=== PATIENT | female | born 1940 | race Caucasian/White ===

== ENCOUNTER 2016-10-24 13:05 | Emergency (ER) | payer MEDICARE, MEDICAID ==
[2016-10-24] MEDS ORDERED: NS 0.9% 1000 ML* 1,000 ML IV SCH (13:30)
--- NOTE | 2016-10-24 13:57 | RAD ---
HISTORY: Trauma, head trauma COMPARISONS: None TECHNIQUE: Multiple contiguous axial CT scans were obtained of the head without intravenous contrast. FINDINGS: HEMORRHAGE/INFARCT: There is no hemorrhage or acute infarct. MASSES/SHIFT: There is no mass or shift. EXTRA-AXIAL SPACES: There are no extra-axial fluid collections. SULCI AND VENTRICLES: The sulci and ventricles are normal in size and position for the patient's stated age. CEREBRUM: There are no focal parenchymal abnormalities. BRAINSTEM: There are no focal parenchymal abnormalities. CEREBELLUM: There are no focal parenchymal abnormalities. VESSELS: The vessels are grossly normal. PARANASAL SINUSES: The paranasal sinuses are clear. ORBITS: The orbits are unremarkable. BONES AND SOFT TISSUE: There is soft tissue swelling along the frontal scalp OTHER: None IMPRESSION: NO ACUTE INTRACRANIAL PATHOLOGY.
--- NOTE | 2016-10-24 14:04 | RAD ---
HISTORY: Trauma, head injury COMPARISONS: None TECHNIQUE: Multiple contiguous axial CT scans were obtained of the cervical spine without intravenous contrast, with coronal and sagittal multiplanar reformations. FINDINGS: BRAIN: The visualized brain is unremarkable CENTRAL CANAL: Evaluation of the central canal is limited on CT technique; however, there is no obvious canalicular mass or epidural hemorrhage. ALIGNMENT: There is straightening of the cervical lordosis. VERTEBRAL BODIES: There is multilevel anterolateral marginal osteophyte formation. There is no displaced fracture or dislocation. JOINTS: There is uncovertebral and facet osteoarthritis. There is osteoarthritis of the atlantoaxial articulation MUSCULATURE: Unremarkable INTERVERTEBRAL DISCS: There is diffuse loss of intervertebral disc height. AXIAL IMAGES: C2-C3: There is osteoarthritis of the facet joint. There is mild left neural foraminal narrowing. C3-C4: There is bilateral uncovertebral and facet hypertrophy. There is moderate right neural foraminal narrowing. There is no osseous stenosis. C4-C5: There is bilateral uncovertebral and facet hypertrophy. There is moderate to severe left and mild right neural foraminal narrowing. There is no osseous central canal stenosis. C5-C6: There is a broad-based discussed effect complex with bilateral uncovertebral and facet hypertrophy. There is severe left and moderate right neural foraminal narrowing. There is mild narrowing of the central canal. C6-C7: There is bilateral uncovertebral and facet hypertrophy. There is severe bilateral neural foraminal narrowing. There is no significant osseous central canal stenosis C7-T1: There is no osseous neural foraminal narrowing or central canal stenosis. SOFT TISSUES: The visualized soft tissues of the neck are unremarkable. There is calcification of the carotid bifurcations. The prevertebral fat stripe is preserved. OTHER: None. IMPRESSION: 1. DEGENERATIVE DISC DISEASE AND OSTEOARTHRITIS. 2. NO ACUTE OSSEOUS INJURY TO THE CERVICAL SPINE
[2016-10-24 14:09] LABS: Hematocrit 40 % (35-47); Mean Corpuscular HGB Conc 33 g/dl (31-36); Mean Corpuscular Hemoglobin 30 pg (27-31); Mean Corpuscular Volume 92 fL (80-97); Mean Platelet Volume 9 um3 (7.4-10.4); Red Blood Count 4.34 10^6/ul (4.0-5.4); Red Cell Distribution Width 16 % (10.5-15); White Blood Count 7.8 10^3/ul (3.5-10.8)
[2016-10-24 14:26] LABS: Albumin 3.5 g/dL (3.2-5.2); BUN/Creatinine Ratio 26.4 (8-20); C Reactive Protein 11.18 mg/L (< 5.00); Calcium 9.2 mg/dL (8.6-10.3); EGFR African American 77.3 (>60); EGFR Non-African American 60.1 (>60); Globulin 3.7 g/dL (2-4); Magnesium 1.9 mg/dL (1.9-2.7); Total Bilirubin 0.4 mg/dL (0.2-1.0); Total Protein 7.2 g/dL (6.4-8.9)
[2016-10-24 14:28] LABS: Troponin I 0.03 ng/mL (<0.04)
[2016-10-24 14:52] LABS: TSH (Thyroid Stimulating Horm) 0.15 mcIU/mL (0.34-5.60)
--- NOTE | 2016-10-24 14:54 | RAD ---
HISTORY: Syncope COMPARISONS: None VIEWS:1: Single frontal portable view of the chest at 2:17 PM FINDINGS: LINES AND TUBES: None. CARDIOMEDIASTINAL SILHOUETTE: The cardiomediastinal silhouette is normal for portable technique. PLEURA: There is elevation of the right hemidiaphragm LUNG PARENCHYMA: The lungs are clear. ABDOMEN: The upper abdomen is clear. There is no subphrenic gas. BONES AND SOFT TISSUES: No bone or soft tissue abnormalities are noted. IMPRESSION: NO ACTIVE CARDIOPULMONARY DISEASE.
--- NOTE | 2016-10-24 14:55 | RAD ---
HISTORY: Right hand and wrist trauma COMPARISONS: None VIEWS: 7, Frontal, lateral, and oblique views of the right hand and right wrist FINDINGS: BONE DENSITY: There is diffuse osteopenia. BONES: There is no displaced acute fracture. There is a well-corticated bone fragment of the styloid process of the ulna JOINTS: There is osteoarthritis of the first CMC joint. There is mild osteoarthritis of interphalangeal joints ALIGNMENT: There is no dislocation. SOFT TISSUES: Unremarkable. OTHER FINDINGS: None. IMPRESSION: 1. OSTEOPENIA. 2. OSTEOARTHRITIS. 3. NO ACUTE OSSEOUS INJURY TO THE RIGHT WRIST AND HAND. IF SYMPTOMS PERSIST, RECOMMEND REPEAT IMAGING.
[2016-10-24 15:03] LABS: Potassium 4.1 mmol/L (3.5-5.0)
[2016-10-24] MEDS ORDERED: traMADol TAB* 50 MG PO ONE (16:04)
--- NOTE | 2016-10-24 16:11 | ED ---
Head Injury - HPI Summary HPI Summary: Patient presents after a mechanical fall at her assisted at approximately 0200 this AM. She called for help since she was unable to get up on her own. She refused medical treatment at that time but as the day progressed she was willing to come if for assessment when one of her favorite aids came to work. She is not sure if she loss consciousness, but she did hit her head and has a contusion to her left forehead. She also has pain in her right wrist and hand. She denies neck pain, vomiting or headache. She does take a daily blood thinner. - History Of Current Complaint Chief Complaint: EDHeadInjury Stated Complaint: RIGHT WRIST PAIN, LEFT EYE PAIN,FALL Time Seen by Provider: 10/24/16 13:47 Hx Obtained From: Patient, Family/Caul Dresser Mechanism Of Injury: Fall From A Standing Position Onset/Duration: Started Hours Ago, Atraumatic Onset of Pain: Hours Severity Currently: Moderate Severity Initially: Mild Pain Intensity: 5 Location of Head Injury: Frontal Character: Dull, Aching Associated Signs And Symptoms: Swelling - left forehead, Bruising - Allergies/Home Medications Allergies/Adverse Reactions: Allergies Allergy/AdvReac Type Severity Reaction Status Date / Time Codeine Allergy Unknown Verified 10/24/16 13:13 Reaction Details PMH/Surg Hx/FS Hx/Imm Hx Cardiovascular History: Reports: Hx Hypertension Respiratory History: Reports: Hx Asthma Infectious Disease History: No Infectious Disease History: Denies: Traveled Outside the [place] in Last 30 Days - Social History Occupation: Unemployed Lives: [facility] Alcohol Use: None Substance Use Type: Reports: None Smoking Status (MU): Former Smoker Review of Systems Negative: Fever, Chills Negative: Blurred Vision, Diplopia Negative: Chest Pain Negative: Shortness Of Breath Negative: Abdominal Pain Positive: Myalgia - right wrist Positive: Bruising - left forehead Negative: Headache, Weakness, Paresthesia, Numbness All Other Systems Reviewed And Are Negative: Yes Physical Exam Triage Information Reviewed: Yes Vital Signs On Initial Exam: Initial Vitals Temp Pulse Resp BP Pulse Ox 99.5 F 103 20 114/67 95 10/24/16 13:07 10/24/16 13:07 10/24/16 13:07 10/24/16 13:07 10/24/16 13:07 Vital Signs Reviewed: Yes Appearance: Positive: Well-Appearing, Well-Nourished, Pain Distress Skin: Positive: Warm, Skin Color Reflects Adequate Perfusion, Dry, Soft Head/Face: Positive: Other - ecchymosis and mild edema to left forehead and left eye Eyes: Positive: EOMI, CONTRERAS, Conjunctiva Clear ENT: Positive: Hearing grossly normal Neck: Positive: Supple, Nontender, No Lymphadenopathy Respiratory/Lung Sounds: Positive: Clear to Auscultation, Breath Sounds Present Cardiovascular: Positive: IRR - A-fib with alternating rate Abdomen Description: Positive: Nontender, Soft. Negative: Distended, Guarding Bowel Sounds: Positive: Present Musculoskeletal: Positive: Limited @ - right wrist flexion and extension limited due to pain.. Negative: Edema Left, Edema Right Neurological: Positive: Sensory/Motor Intact, Alert, Oriented to Person Place, Time, CN Intact II-III, NV Bundle Intact Distally Psychiatric: Positive: Affect/Mood Appropriate AVPU Assessment: Alert - [place] Coma Scale Coma Scale Total: 15 Diagnostics - Vital Signs Vital Signs Temp Pulse Resp BP Pulse Ox 10/24/16 13:07 99.5 F 103 20 114/67 95 - Laboratory Lab Results: Lab Results 10/24/16 10/24/16 10/24/16 Range/Units 14:00 14:00 14:00 WBC 7.8 (3.5-10.8) 10^3/ul RBC 4.34 (4.0-5.4) 10^6/ul Hgb 13.0 (12.0-16.0) g/dl Hct 40 (35-47) % MCV 92 (80-97) fL MCH 30 (27-31) pg MCHC 33 (31-36) g/dl RDW 16 H (10.5-15) % Plt Count 109 L (150-450) 10^3/ul MPV 9 (7.4-10.4) um3 Neut % (Auto) 75.9 (38-83) % Lymph % (Auto) 10.6 L (25-47) % [place] % (Auto) 12.9 H (1-9) % Eos % (Auto) 0.1 (0-6) % Baso % (Auto) 0.5 (0-2) % Absolute Neuts (auto) 5.9 (1.5-7.7) 10^3/ul Absolute Lymphs (auto) 0.8 L (1.0-4.8) 10^3/ul Absolute Monos (auto) 1.0 H (0-0.8) 10^3/ul Absolute Eos (auto) 0 (0-0.6) 10^3/ul Absolute Basos (auto) 0 (0-0.2) 10^3/ul Absolute Nucleated RBC 0 10^3/ul Nucleated RBC % 0 INR (Anticoag Therapy) 0.94 (0.89-1.11) APTT 26.5 (26.0-36.3) seconds Sodium 137 (133-145) mmol/L Potassium 4.1 (3.5-5.0) mmol/L Chloride 104 (101-111) mmol/L Carbon Dioxide 26 (22-32) mmol/L Anion Gap 7 (2-11) mmol/L BUN 24 (6-24) mg/dL Creatinine 0.91 (0.51-0.95) mg/dL Est GFR ( Amer) 77.3 (>60) Est GFR (Non-Af Amer) 60.1 (>60) BUN/Creatinine Ratio 26.4 H (8-20) Glucose 133 H (70-100) mg/dL Lactic Acid (0.5-2.0) mmol/L Calcium 9.2 (8.6-10.3) mg/dL Magnesium 1.9 (1.9-2.7) mg/dL Total Bilirubin 0.40 (0.2-1.0) mg/dL AST 23 (13-39) U/L ALT 11 (7-52) U/L Alkaline Phosphatase 86 (34-104) U/L Total Creatine Kinase 36 (10-223) U/L CK-MB (CK-2) 2.0 (0.6-6.3) ng/mL Troponin I 0.03 (<0.04) ng/mL C-Reactive Protein 11.18 H (< 5.00) mg/L B-Natriuretic Peptide ( - 100) pg/mL Total Protein 7.2 (6.4-8.9) g/dL Albumin 3.5 (3.2-5.2) g/dL Globulin 3.7 (2-4) g/dL Albumin/Globulin Ratio 0.9 L (1-3) Lipase 14 (11.0-82.0) U/L TSH 0.15 L (0.34-5.60) mcIU/mL 10/24/16 10/24/16 Range/Units 14:00 14:00 WBC (3.5-10.8) 10^3/ul RBC (4.0-5.4) 10^6/ul Hgb (12.0-16.0) g/dl Hct (35-47) % MCV (80-97) fL MCH (27-31) pg MCHC (31-36) g/dl RDW (10.5-15) % Plt Count (150-450) 10^3/ul MPV (7.4-10.4) um3 Neut % (Auto) (38-83) % Lymph % (Auto) (25-47) % [place] % (Auto) (1-9) % Eos % (Auto) (0-6) % Baso % (Auto) (0-2) % Absolute Neuts (auto) (1.5-7.7) 10^3/ul Absolute Lymphs (auto) (1.0-4.8) 10^3/ul Absolute Monos (auto) (0-0.8) 10^3/ul Absolute Eos (auto) (0-0.6) 10^3/ul Absolute Basos (auto) (0-0.2) 10^3/ul Absolute Nucleated RBC 10^3/ul Nucleated RBC % INR (Anticoag Therapy) (0.89-1.11) APTT (26.0-36.3) seconds Sodium (133-145) mmol/L Potassium (3.5-5.0) mmol/L Chloride (101-111) mmol/L Carbon Dioxide (22-32) mmol/L Anion Gap (2-11) mmol/L BUN (6-24) mg/dL Creatinine (0.51-0.95) mg/dL Est GFR ( Amer) (>60) Est GFR (Non-Af Amer) (>60) BUN/Creatinine Ratio (8-20) Glucose (70-100) mg/dL Lactic Acid 2.0 (0.5-2.0) mmol/L Calcium (8.6-10.3) mg/dL Magnesium (1.9-2.7) mg/dL Total Bilirubin (0.2-1.0) mg/dL AST (13-39) U/L ALT (7-52) U/L Alkaline Phosphatase (34-104) U/L Total Creatine Kinase (10-223) U/L CK-MB (CK-2) (0.6-6.3) ng/mL Troponin I (<0.04) ng/mL C-Reactive Protein (< 5.00) mg/L B-Natriuretic Peptide 699 H ( - 100) pg/mL Total Protein (6.4-8.9) g/dL Albumin (3.2-5.2) g/dL Globulin (2-4) g/dL Albumin/Globulin Ratio (1-3) Lipase (11.0-82.0) U/L TSH (0.34-5.60) mcIU/mL Result Diagrams: 10/24/16 14:00 10/24/16 14:00 Lab Statement: Any lab studies that have been ordered have been reviewed, and results considered in the medical decision making process. - Radiology No standard instances Xray Interpretation: No Acute Changes Radiology Interpretation Completed By: Radiologist - CT No standard instances CT Interpretation: No Acute Changes CT Interpretation Completed By: Radiologist - CT brain and cervical spine negative for acute changes Head Injury Course/Dx - Diagnoses Differential Diagnosis/HQI/PQRI: Cerebral Contusion, Cervical Sprain, Contusion , Intracranial Bleed, Laceration, Nasal Fracture, Skull Fracture Provider Diagnoses: Facial contusion, Head injury, Contusion of right wrist - Physician Notifications Discussed Care Of Patient With: Dr. Durand, emergency department attending; Patient care signed out to KYLIE Kendrick at 1630. Time Discussed With Above Provider: 15:30 Discharge - Discharge Plan Condition: Stable Disposition: HOME Patient Education Materials: Head Injury (ED), Contusion in Adults (ED), Wrist Injury (ED) Referrals: Rohit Damon DO [Primary Care Provider] - Additional Instructions: Please follow-up with your primary care provider in 1-3 days for re-evaluation. Return to the emergency department if symptoms worsen.
[2016-10-24 17:37] LABS: Urine Bilirubin Negative (Negative); Urine Glucose Negative (Negative); Urine Nitrite Negative (Negative)
[2016-10-24 18:10] VITALS: BP 147/89
--- NOTE | 2016-10-28 16:17 | RAD ---
Indication: Traumatic injury. Fall. Ecchymosis at the dorsal RIGHT hand. Comparison: RIGHT hand radiographs of the same date. Technique: AP, lateral, and oblique views of the RIGHT wrist. Report: Bone density appears decreased throughout. No cortical disruption or suspicious trabecular irregularity to suggest fracture. Small chronic appearing accessory ossicle or sequela of remote injury noted distal to the ulnar styloid. Normal articular alignment. Mild nonfocal soft tissue swelling. Mild osteophytosis noted at the scaphoid trapezium articulation. IMPRESSION: Negative for fracture.
== END 2016-10-24 18:12 | disposition home or self-care (01) ==
LOC: ED 13:05
DX: S60.211A Contusion of right wrist, initial encounter (principal); S09.90XA Unspecified injury of head, initial encounter; R22.9 Localized swelling, mass and lump, unspecified; S00.83XA Contusion of other part of head, initial encounter; W19.XXXA Unspecified fall, initial encounter; Y93.9 Activity, unspecified; Y92.9 Unspecified place or not applicable
CPT/HCPCS: 36415; 70450; 71010; 72125; 80053; 81003; 82550; 82553; 83605; 83690; 83735; 83880; 84443; 84484; 85025; 85610; 85730; 86140; 99283; A9270-GY

== ENCOUNTER 2016-11-22 09:00 | Observation (INO) | payer MEDICARE, MEDICAID ==
[2016-11-22 09:35] LABS: Urine Bilirubin Negative (Negative); Urine Glucose Negative (Negative); Urine Nitrite Negative (Negative)
--- NOTE | 2016-11-22 09:52 | RAD ---
INDICATION: Chest pain. COMPARISON: Comparison is made with a prior chest x-ray study from October 24, 2016. TECHNIQUE: A portable view of the chest was obtained. FINDINGS: The heart appears mildly enlarged and unchanged from the prior exam. The lungs are underinflated. There is more focal elevation of the right hemidiaphragm. There is a linear density located above the right lung base most consistent with atelectasis. The lungs are otherwise clear. No pleural effusion is seen. IMPRESSION: EXPIRATORY EXAM, RIGHT BASILAR SUBSEGMENTAL ATELECTASIS.
[2016-11-22 10:02] LABS: Hematocrit 38 % (35-47); Hemoglobin 12.3 g/dl (12.0-16.0); Mean Corpuscular HGB Conc 33 g/dl (31-36); Mean Corpuscular Hemoglobin 30 pg (27-31); Mean Corpuscular Volume 93 fL (80-97); Mean Platelet Volume 10 um3 (7.4-10.4); Red Blood Count 4.07 10^6/ul (4.0-5.4); Red Cell Distribution Width 17 % (10.5-15); White Blood Count 7.1 10^3/ul (3.5-10.8)
[2016-11-22 10:10] LABS: Comments Flag Yes
[2016-11-22 10:11] LABS: Add Diff/Slide Review? Slide Review Added
[2016-11-22 10:21] LABS: Troponin I 0.01 ng/mL (<0.04)
[2016-11-22 10:23] LABS: Albumin 3.4 g/dL (3.2-5.2); BUN/Creatinine Ratio 30.3 (8-20); C Reactive Protein 20.45 mg/L (< 5.00); Calcium 9.1 mg/dL (8.6-10.3); EGFR African American 95.2 (>60); Globulin 3.3 g/dL (2-4); Potassium 3.9 mmol/L (3.5-5.0); Total Bilirubin 0.5 mg/dL (0.2-1.0); Total Protein 6.7 g/dL (6.4-8.9)
--- NOTE | 2016-11-22 10:31 | RAD ---
INDICATION: Episode of confusion. COMPARISON: Comparison is made to prior CT of the brain from October 24, 2016. TECHNIQUE: Contiguous axial sections of the brain were obtained from the skull base to the vertex without contrast. FINDINGS: The ventricles, cisterns and sulci are enlarged consistent with age-related atrophy. No significant focal abnormality or mass effect is seen. There is no evidence for hemorrhage. No significant focal osseous abnormality is seen. The visualized portion of the paranasal sinuses and mastoid air cells appear clear. IMPRESSION: NO EVIDENCE FOR GROSS ACUTE INFARCT, MASS EFFECT OR HEMORRHAGE.
[2016-11-22] MEDS ORDERED: Labetalol IV* 5 MG/ML 20 ML VIAL IV PUSH ONE (12:02)
--- NOTE | 2016-11-22 12:05 | ED ---
Iveth Agee Anna, scribed for Sara Goldman MD on 11/22/16 at 0932 . Altered Mental Status - HPI Summary HPI Summary: Patient is a 76 y/o female coming to [facility] following sudden onset of an episode of confusion that occurred this morning. She is a resident at [facility], where the staff reports the patient was confused and expressed some chest pressure. She was walked back to her room, and the chest pressure was resolved. The doctor has been taking her off her BP medicine. She currently takes Depacote. She ambulates via a walker. She now knows she is in the hospital. Denies Hx of dementia, though she does report that she has been confused before. - History Of Current Complaint Stated Complaint: HYPERTENSION Hx Obtained From: Patient, EMS Onset/Duration: Resolved Character: Confusion - Allergies/Home Medications Allergies/Adverse Reactions: Allergies Allergy/AdvReac Type Severity Reaction Status Date / Time Codeine Allergy Unknown Verified 10/24/16 13:13 Reaction Details Home Medications: Home Medications Acetaminophen TAB* [Tylenol TAB*] 650 mg PO .Q4-6H PRN 11/22/16 [History Confirmed 11/22/16] Al Hydrox/Mg Hydrox/Simet LIQ* [Maalox Plus*] 15 ml PO Q4H PRN 11/22/16 [ History Confirmed 11/22/16] Bismuth Subsalicylate [Kaopectate Extra Strength] 30 ml PO DAILY PRN 11/22/16 [ History Confirmed 11/22/16] Docusate CAP* [Colace Cap*] 100 mg PO BID 11/22/16 [History Confirmed 11/22/16] Dorzolamide 2% OPTH (NF) [Trusopt 2% OPTH (NF)] 1 drop BOTH EYES BID 11/22/16 [ History Confirmed 11/22/16] Latanoprost 0.005%* [Xalatan 0.005%*] 1 drop BOTH EYES BEDTIME 11/22/16 [ History Confirmed 11/22/16] Lidocaine PATCH 5%* [Lidoderm 5% Patch*] 1 patch TRANSDERM DAILY 11/22/16 [ History Confirmed 11/22/16] Magnesium Hydroxide LIQ* [Milk of Magnesia LIQ*] 60 ml PO Q4HR PRN 11/22/16 [ History Confirmed 11/22/16] Menthol (Mouth-Throat) [[place] Cough Drops Sugar F] 7.6 mg PO Q4HR PRN 11/22/16 [ History Confirmed 11/22/16] Miconazole Nitrate (Topical) [Micro Guard] 2 % TOPICAL BID 11/22/16 [History Confirmed 11/22/16] Umeclidinium [place] [Incruse Ellipta] 62.5 mcg INH DAILY 11/22/16 [History Confirmed 11/22/16] PMH/Surg Hx/FS Hx/Imm Hx Cardiovascular History: Reports: Hx Hypertension Respiratory History: Reports: Hx Asthma Neurological History: Denies: Hx Dementia - Family History Known Family History: Positive: Hypertension - Social History Occupation: Retired Lives: Assisted Living Alcohol Use: None Substance Use Type: Reports: None Smoking Status (MU): Former Smoker Review of Systems Positive: Chest Pain Neurological: Other - Confusion Psychological: Normal All Other Systems Reviewed And Are Negative: Yes Physical Exam Triage Information Reviewed: Yes Vital Signs On Initial Exam: Temp Pulse Resp BP Pulse Ox 97.0 F 79 24 172/104 99 11/22/16 09:27 11/22/16 09:27 11/22/16 09:27 11/22/16 09:27 11/22/16 09:27 Vital Signs Reviewed: Yes Appearance: Positive: Well-Appearing, No Pain Distress Skin: Positive: Warm, Skin Color Reflects Adequate Perfusion, Dry, Erythema @ - 4 cm area erythema on right leg. No fluctuance or induration to that area. Eyes: Positive: EOMI, CONTRERAS ENT: Positive: Pharynx normal, TMs normal Neck: Positive: Supple, Nontender Respiratory/Lung Sounds: Positive: Clear to Auscultation, Breath Sounds Present. Negative: Rales, Rhonchi, Wheezes Cardiovascular: Positive: RRR. Negative: Murmur, Rub, Other - gallop Abdomen Description: Positive: Nontender, Soft. Negative: Distended, Guarding, Other: - rebound Bowel Sounds: Positive: Present Musculoskeletal: Positive: Strength/ROM Intact, Edema Left - 1+ edema, Edema Right - 1+ edema Neurological: Positive: Normal, Sensory/Motor Intact, Alert, Oriented to Person Place, Time, CN Intact II-III - II-XII Psychiatric: Positive: Affect/Mood Appropriate Diagnostics - Vital Signs Vital Signs Temp Pulse Resp BP Pulse Ox 11/22/16 10:09 26 11/22/16 09:27 97.0 F 79 24 172/104 99 11/22/16 09:25 97 F 79 24 172/104 99 11/22/16 09:22 97.0 F 79 24 172/104 99 11/22/16 09:13 84 91 11/22/16 09:07 97 F 79 24 172/104 99 - Laboratory Lab Results: Lab Results 11/22/16 11/22/16 11/22/16 Range/Units 09:09 09:45 09:45 WBC 7.1 (3.5-10.8) 10^3/ul RBC 4.07 (4.0-5.4) 10^6/ul Hgb 12.3 (12.0-16.0) g/dl Hct 38 (35-47) % MCV 93 (80-97) fL MCH 30 (27-31) pg MCHC 33 (31-36) g/dl RDW 17 H (10.5-15) % Plt Count 78 L (150-450) 10^3/ul MPV 10 (7.4-10.4) um3 Neut % (Auto) 73.0 (38-83) % Lymph % (Auto) 14.7 L (25-47) % [place] % (Auto) 8.8 (1-9) % Eos % (Auto) 2.8 (0-6) % Baso % (Auto) 0.7 (0-2) % Absolute Neuts (auto) 5.2 (1.5-7.7) 10^3/ul Absolute Lymphs (auto) 1.0 (1.0-4.8) 10^3/ul Absolute Monos (auto) 0.6 (0-0.8) 10^3/ul Absolute Eos (auto) 0.2 (0-0.6) 10^3/ul Absolute Basos (auto) 0.1 (0-0.2) 10^3/ul Absolute Nucleated RBC 0 10^3/ul Nucleated RBC % 0 Hem Pathologist Commnt Pending Sodium 140 (133-145) mmol/L Potassium 3.9 (3.5-5.0) mmol/L Chloride 102 (101-111) mmol/L Carbon Dioxide 33 H (22-32) mmol/L Anion Gap 5 (2-11) mmol/L BUN 23 (6-24) mg/dL Creatinine 0.76 (0.51-0.95) mg/dL Est GFR ( Amer) 95.2 (>60) Est GFR (Non-Af Amer) 74.0 (>60) BUN/Creatinine Ratio 30.3 H (8-20) Glucose 91 (70-100) mg/dL Lactic Acid (0.5-2.0) mmol/L Calcium 9.1 (8.6-10.3) mg/dL Total Bilirubin 0.50 (0.2-1.0) mg/dL AST 19 (13-39) U/L ALT 15 (7-52) U/L Alkaline Phosphatase 92 (34-104) U/L Troponin I 0.01 (<0.04) ng/mL C-Reactive Protein 20.45 H (< 5.00) mg/L Total Protein 6.7 (6.4-8.9) g/dL Albumin 3.4 (3.2-5.2) g/dL Globulin 3.3 (2-4) g/dL Albumin/Globulin Ratio 1.0 (1-3) Urine Color Straw Urine Appearance Clear Urine pH 6.0 (5-9) Ur Specific [place] 1.006 L (1.010-1.030) Urine Protein Negative (Negative) Urine Ketones Negative (Negative) Urine Blood Negative (Negative) Urine Nitrate Negative (Negative) Urine Bilirubin Negative (Negative) Urine Urobilinogen Negative (Negative) Ur Leukocyte Esterase Negative (Negative) Urine Glucose Negative (Negative) 11/22/16 Range/Units 09:45 WBC (3.5-10.8) 10^3/ul RBC (4.0-5.4) 10^6/ul Hgb (12.0-16.0) g/dl Hct (35-47) % MCV (80-97) fL MCH (27-31) pg MCHC (31-36) g/dl RDW (10.5-15) % Plt Count (150-450) 10^3/ul MPV (7.4-10.4) um3 Neut % (Auto) (38-83) % Lymph % (Auto) (25-47) % [place] % (Auto) (1-9) % Eos % (Auto) (0-6) % Baso % (Auto) (0-2) % Absolute Neuts (auto) (1.5-7.7) 10^3/ul Absolute Lymphs (auto) (1.0-4.8) 10^3/ul Absolute Monos (auto) (0-0.8) 10^3/ul Absolute Eos (auto) (0-0.6) 10^3/ul Absolute Basos (auto) (0-0.2) 10^3/ul Absolute Nucleated RBC 10^3/ul Nucleated RBC % Hem Pathologist Commnt Sodium (133-145) mmol/L Potassium (3.5-5.0) mmol/L Chloride (101-111) mmol/L Carbon Dioxide (22-32) mmol/L Anion Gap (2-11) mmol/L BUN (6-24) mg/dL Creatinine (0.51-0.95) mg/dL Est GFR ( Amer) (>60) Est GFR (Non-Af Amer) (>60) BUN/Creatinine Ratio (8-20) Glucose (70-100) mg/dL Lactic Acid 1.4 (0.5-2.0) mmol/L Calcium (8.6-10.3) mg/dL Total Bilirubin (0.2-1.0) mg/dL AST (13-39) U/L ALT (7-52) U/L Alkaline Phosphatase (34-104) U/L Troponin I (<0.04) ng/mL C-Reactive Protein (< 5.00) mg/L Total Protein (6.4-8.9) g/dL Albumin (3.2-5.2) g/dL Globulin (2-4) g/dL Albumin/Globulin Ratio (1-3) Urine Color Urine Appearance Urine pH (5-9) Ur Specific [place] (1.010-1.030) Urine Protein (Negative) Urine Ketones (Negative) Urine Blood (Negative) Urine Nitrate (Negative) Urine Bilirubin (Negative) Urine Urobilinogen (Negative) Ur Leukocyte Esterase (Negative) Urine Glucose (Negative) Result Diagrams: 11/22/16 09:45 11/22/16 09:45 Lab Statement: Any lab studies that have been ordered have been reviewed, and results considered in the medical decision making process. - Radiology CXR Xray Interpretation: Positive (See Comments) Radiology Interpretation Completed By: Radiologist - IMPRESSION: EXPIRATORY EXAM, RIGHT BASILAR SUBSEGMENTAL ATELECTASIS. - CT Brain CT CT Interpretation: No Acute Changes CT Interpretation Completed By: Radiologist - IMPRESSION: NO EVIDENCE FOR GROSS ACUTE INFARCT, MASS EFFECT OR HEMORRHAGE. - EKG 0914 Cardiac Rate: NL - 80 bpm EKG Rhythm: Atrial Fibrillation - Slow EKG Interpretation: No Qs No ST elevation Altered Mental Statu Course/Dx - Course Course Of Treatment: 76 yo female with multiple elevated bp readings at [facility] over the last few days today with an episode of ams this am. Talked with Dr. France about admission - Diagnoses Discharge Diagnoses: Hypertension, Altered mental status - Provider Notifications Discussed Care Of Patient With: Dr. France (hospitalist) at 1200. Accepts her for admission. Discharge - Discharge Plan Condition: Stable Disposition: ADMITTED TO [facility] Referrals: Non Staff,Doctor [Primary Care Provider] - The documentation as recorded by the Iveth english Anna accurately reflects the service I personally performed and the decisions made by me, Sara Goldman MD.
[2016-11-22] MEDS ORDERED: Acetaminophen TAB* 325 MG PO PRN (14:30)
[2016-11-22] MEDS ORDERED: Ondansetron INJ* 2 MG/ML VIAL IV PRN (14:30)
[2016-11-22] MEDS ORDERED: Albuterol 2.5 MG/3 ML NEB.SOL* (0.083%) INH PRN (14:53)
[2016-11-22] MEDS: Metoprolol Tartrate TAB* 25 MG PO SCH ×2 (17:04→17:45)
[2016-11-22] MEDS ORDERED: Atorvastatin* 10 MG TAB PO SCH (21:00)
[2016-11-22] MEDS ORDERED: Montelukast Sodium TAB* 10 MG PO SCH (21:00)
[2016-11-22] MEDS ORDERED: FLUTICASONE PROPIONATE 50 MCG INH SCH (21:00)
[2016-11-22] MEDS ORDERED: Latanoprost 0.005%* 2.5 ml BTL BOTH EYES SCH (21:00)
[2016-11-22] MEDS ORDERED: Primidone TAB(*) 50 MG PO SCH (21:00)
[2016-11-22] MEDS ORDERED: Divalproex DR TAB(*) 250 MG PO SCH (21:00)
[2016-11-22] MEDS ORDERED: Lidocaine Patch REMOVE* 1 NOTE MISC PATCH OFF SCH (21:00)
[2016-11-22] MEDS ORDERED: CMCS: Escitalopram (NF) 10 MG TAB PO SCH (21:00)
--- NOTE | 2016-11-22 21:07 | HP ---
HISTORY AND PHYSICAL: DATE OF ADMISSION: 11/22/16 PRIMARY CARE PROVIDER: Dr. Damon. ATTENDING PHYSICIAN WHILE IN THE HOSPITAL: Dr. Kristin Luis *(report dictated by Sami Gold NP). CHIEF COMPLAINT: 1. Elevated blood pressure. 2. Altered mental status. HISTORY OF PRESENT ILLNESS: Ms. Mayers is a 76-year-old female patient that presented to the emergency department today because [facility] was concerned that she was confused and they noticed that her blood pressure was significantly elevated; it was 180/120. In addition to this, there was also concern because she was complaining of chest discomfort. The patient was brought in to the ER. She was evaluated, and because of the chest discomfort and the blood pressure, we were asked to evaluate. In evaluating the patient, she says that she does remember coming in for the elevated blood pressure. She states that she was having some chest discomfort. She says that she has been having chest discomfort off and on for as long as that she can remember, sometimes with exertion. She says today what happened was she was sitting and she had chest discomfort, described as a pressure with no associated shortness of breath or nausea. She states that she did not have a headache. There was no blurry vision. She denies any recent fevers or chills. She does state that recently her Xarelto was stopped. In addition to this, she is no longer on blood pressure medications and she thinks that that is why her blood pressure is high. She also did tell me that she fell a few weeks ago and shortly after that, her blood pressure medications were stopped because her blood pressure was low. She denies having any chest pain currently. States she is feeling better. She denies any abdominal pain. She denies having any shortness of breath currently as well. Because of the chest pressure and the elevated blood pressure, the hospitalist service was asked to evaluate for admission. PAST MEDICAL HISTORY: Significant for: 1. Hypertension. 2. Asthma. 3. Hyperlipidemia. 4. Atrial fibrillation. 5. History of pulmonary embolism. PAST SURGICAL HISTORY: She has had: 1. Right total knee replacement. 2. Appendectomy. MEDICATIONS: [facility]: 1. Incruse 62.5 mcg inhaled daily. 2. Miconazole cream 2% topically b.i.d. 3. [place] 1 lozenge p.o. every 4 hours as needed. 4. Milk of mag 60 cc every 4 hours as needed. 5. Lidoderm 1 patch topically transdermally daily. 6. Latanoprost 1 drop both eyes bedtime. 7. Trusopt 1 drop both eyes b.i.d. 8. Colace 100 mg p.o. b.i.d. 9. Kaopectate 30 cc daily as needed. 10. Maalox 15 cc every 4 hours as needed. 11. Tylenol 650 mg p.o. every 4 to 6 hours as needed. ALLERGIES TO MEDICATIONS: Include CODEINE. FAMILY HISTORY: Her father had a history of ALS. The mother's history was reviewed and noncontributory. SOCIAL HISTORY: She is a former smoker. She says she quit about 4 months ago. She used to be an alcoholic. She says she has had a drink in 30 years. She has 4 children. Surrogate decision maker is her sister. REVIEW OF SYSTEMS: There is no documented fever. She denied having any significant weight change. There was no double vision. There is no ear discharge. She denies having any rhinorrhea or sore throat. There is no thyroid enlargement. She denied chest pressure currently. She denies having any abdominal pain or any nausea or vomiting. Denies any loss of consciousness. No pruritus. Review of 14 systems completed, all others negative. PHYSICAL EXAMINATION GENERAL: At this time, Ms. Mayers is a 76-year-old female patient. She is sitting in the hospital bed. She does not appear to be in any acute distress. VITAL SIGNS: Blood pressure 151/86 with a pulse of 79, respirations 18, O2 sat 98, and temperature 96.7. HEENT: Head is atraumatic and normocephalic. Eyes: EOMs intact. Sclerae anicteric and not pale. Throat: Oral mucosa appears to be moist. No oropharyngeal erythema. NECK: Supple. LUNGS: Clear to auscultation bilaterally. No wheezes, rales, or rhonchi noted. HEART: Sounds S1, S2. Irregularly irregular rate. No murmurs, rubs, or gallops. ABDOMEN: Soft, it was flat, and nontender. Bowel sounds present. EXTREMITIES: Pulses 2+ throughout. She did have +2 pitting edema bilaterally. She is able to move all 4 extremities with 5/5 strength. NEUROLOGIC: Again, she is awake, alert, and oriented x3. No gross focal deficits. SKIN: Intact. She does have multiple areas of ecchymosis noted to the face and to her arms. DIAGNOSTIC STUDIES/LAB DATA: Today revealed a WBC of 7.1, RBC of 4.07, hemoglobin 12.3, hematocrit of 38, platelet count of 78. Sodium was 140, potassium 3.9, chloride of 102, bicarb of 33, BUN 23, creatinine of 0.76, glucose of 91, lactate 1.4, calcium 9.1. Total bili 0.5, AST 19, ALT 15, alk phos 92. Troponin was 0.01. Albumin 3.4. Urine was obtained, it was negative. She had an EKG obtained in the ED which showed atrial fibrillation with a rate of 80. No ST elevations or T-wave inversions noted. She had a chest x-ray obtained today, which showed expiratory exam, right basilar subsegmental atelectasis. She had a brain CT, which showed no evidence for gross acute infarct, mass effect, or hemorrhage. Old medical records were reviewed. ASSESSMENT AND PLAN: Ms. Mayers is a 76-year-old female patient coming into the ER today with complaints of chest discomfort and elevated blood pressure. Hospitalist service was asked to evaluate for admission. She will be admitted under observation status for: 1. Hypertensive urgency: The blood pressure now is 140/70. She got 1 dose of labetalol in the ED. I will go ahead and continue b.i.d. Lopressor. 2. Asthma: I have ordered p.r.n. albuterol for the patient. 3. Hyperlipidemia: She is not on statin therapy at this point. I did touch base again with [facility] and they did not list a statin for her. I am going to clarify this. 4. Atrial fibrillation: Again, she was at one point on Xarelto according to this patient, but it appears that may have been stopped. We will need to again clarify this. I did touch base with Dr. Damon' office and the notes read at that point that they were supposed to stop the medications only if she was falling. She does have significant amount of ecchymosis to her forehead and to her face, so I question if she has been falling, so at this point, I will hold. I will continue the Lopressor for rate control; her heart rate is in the 80s. 5. History of pulmonary embolism: Again, she was on Xarelto, but for the time being, I will just place her on heparin subcu, the subtherapeutic dose for preventative doses and we will continue to monitor. Again, we will need to clarify. If she chooses to be on the Xarelto, I do leave . 6. Code status: She wished to be a DNR. 7. Fluids, electrolytes, and nutrition: She can have a heart-healthy diet. TIME SPENT: On the admission was 60 minutes; greater than half the time was spent [id number] with the patient obtaining my history and physical, other half the time spent going over the plan of care with the patient and implementing the plan of care. I did discuss the plan of care with my attending, Dr. Luis; she is in agreement. SAMI GOLD NP CC: Dr. Damon* [id number]/CPS #: [id number]
[2016-11-22] MEDS ORDERED: Heparin VIAL(*) 5000 UNITS/ML VIAL (FIVE THOUSAND) SUBCUT SCH (22:00)
[2016-11-22] MEDS: Docusate CAP* 100 MG PO SCH (22:44)
[2016-11-22] MEDS: Carvedilol TAB* 25 MG PO SCH (22:46)
[2016-11-22] MEDS: Gabapentin CAP(*) 100 MG PO SCH (22:47)
[2016-11-23] MEDS: Dorzolamide 2% OPTH (NF) 10 ML BTL BOTH EYES SCH ×2 (00:35→10:10)
[2016-11-23] MEDS ORDERED: Levothyroxine TAB* 150 MCG TAB PO SCH (06:00)
[2016-11-23 06:48] LABS: Hematocrit 36 % (35-47); Hemoglobin 11.8 g/dl (12.0-16.0); Mean Corpuscular HGB Conc 33 g/dl (31-36); Mean Corpuscular Hemoglobin 30 pg (27-31); Mean Corpuscular Volume 93 fL (80-97); Mean Platelet Volume 9 um3 (7.4-10.4); Red Blood Count 3.93 10^6/ul (4.0-5.4); Red Cell Distribution Width 17 % (10.5-15); White Blood Count 5.6 10^3/ul (3.5-10.8)
[2016-11-23 07:02] LABS: BUN/Creatinine Ratio 28.6 (8-20); Calcium 8.8 mg/dL (8.6-10.3); Comments Flag Yes; EGFR African American 93.7 (>60); EGFR Non-African American 72.9 (>60); Potassium 3.9 mmol/L (3.5-5.0)
[2016-11-23] MEDS ORDERED: Omeprazole CAP* 20 MG PO SCH (07:30)
[2016-11-23] MEDS: Carvedilol TAB* 25 MG PO SCH (08:38)
[2016-11-23] MEDS: Docusate CAP* 100 MG PO SCH (08:40)
[2016-11-23] MEDS: Gabapentin CAP(*) 100 MG PO SCH ×2 (08:40→15:15)
[2016-11-23] MEDS ORDERED: Bumetanide TAB* 1 MG PO SCH (09:00)
[2016-11-23] MEDS ORDERED: Lidocaine PATCH 5%* 1 PATCH TRANSDERM SCH (09:00)
[2016-11-23] MEDS ORDERED: Aspirin EC Low Dose* 81 MG TAB.EC PO SCH (09:00)
[2016-11-23] MEDS ORDERED: Divalproex DR TAB(*) 250 MG PO SCH (09:00)
[2016-11-23] MEDS ORDERED: Umeclidin 62.5 MDI(NF) 1 INH MDI INH SCH (09:00)
--- NOTE | 2016-11-23 13:03 | DCNOTE ---
Patient seen this afternoon. Eating lunch. Says she feels well. No chest pain, SOB. On exam, RRR, s1 and s2 present, no m/g/r, lungs CTA B/L, no w/r/r, abd soft, NTND, BS+, trace LE edema BPs better controlled with metoprolol. Will continue this. After clarifying patient IS still on Xarelto, we will continue this
[2016-11-23] MEDS ORDERED: amLODIPine TAB* 5 MG PO SCH (14:00)
[2016-11-23 15:53] VITALS: BP 160/79
[2016-11-23] MEDS ORDERED: Rivaroxaban TAB(*) 20 MG TAB PO SCH (17:00)
--- NOTE | 2016-11-25 01:59 | DS ---
DISCHARGE SUMMARY: DATE OF ADMISSION: 11/22/16 DATE OF DISCHARGE: 11/23/16 PRIMARY CARE PHYSICIAN: Dr. Damon. PRINCIPAL DISCHARGE DIAGNOSIS: hypertension. SECONDARY DIAGNOSES: 1. Asthma. 2. Hyperlipidemia. 3. Atrial fibrillation. 4. History of pulmonary embolism. DISCHARGE MEDICATION REGIMEN: 1. Fluticasone 50 mcg inhaled 2 times daily. 2. Synthroid 150 mcg by mouth daily. 3. Brimonidine tartrate 1 drop to the affected area 2 times daily. 4. Ammonium lactate 1 application transdermal 2 times daily. 5. Atorvastatin 10 mg by mouth at bedtime. 6. Bumex 1 mg by mouth daily. 7. Coreg 50 mg by mouth 2 times daily. 8. Primidone 200 mg by mouth at bedtime. 9. Omeprazole 20 mg by mouth daily. 10. Xarelto 20 mg by mouth daily. 11. Potassium chloride 10 mEq by mouth daily. 12. Aspirin 81 mg by mouth daily. 13. Lexapro 20 mg by mouth at bedtime. 14. Depakote 500 mg by mouth daily and 750 mg by mouth at bedtime. 15. Singulair 10 mg by mouth at bedtime. 16. Gabapentin 200 mg by mouth 3 times daily. 17. Menthol 7.6 mg by mouth every 4 hours as needed for cough. 18. Milk of magnesia 60 mL by mouth every 4 hours as needed for constipation. 19. Maalox 15 mL by mouth every 4 hours as needed for indigestion. 20. Bismuth salicylate 30 mL by mouth daily as needed for indigestion. 21. Colace 100 mg by mouth 2 times daily. 22. Tylenol 650 mg by mouth every 4 to 6 hours as needed for pain. 23. Latanoprost 1 drop both eyes at bedtime. 24. Miconazole 2% topical b.i.d. 25. Dorzolamide 2% one drop in both eyes 2 times daily. 26. Lidocaine 1 patch transdermal daily. 27. Umeclidinium bromide 62.5 mcg inhaled daily. 28. Amlodipine 5 mg by mouth daily. STUDIES DONE DURING HOSPITALIZATION: 1. CT of the brain without contrast, impression: No evidence for gross acute infarct, mass effect, or hemorrhage. 2. Chest x-ray, impression: Expiratory exam, right basilar subsegmental atelectasis. HISTORY OF PRESENT ILLNESS AND HOSPITAL SUMMARY: Please see the full history and physical by Sami Gold NP, for full details. Briefly, Ms. Mayers is a 76 -year- old female who presented to the hospital from [facility] after it was noted that her blood pressure was significantly elevated. She thought that systolics may have been in the 200s. Here in the hospital, her max systolic pressure was 172, diastolic of 104. There was question whether the patient may have had some chest pain associated with this. In the hospital, her blood pressures improved. On further history, it was noted that she was taken off of lisinopril 40 mg by mouth daily recently due to hypotension and a fall that she had. There was a question whether the patient was continued on Xarelto after this as she had a pulmonary embolism fairly recently. The Xarelto was continued through this and will be continued on discharge as well. The patient was taken off of lisinopril recently, it was felt that she would likely need some additional blood pressure control. She is on very high doses of carvedilol at home already at 15 mg by mouth 3 times daily. I have added on amlodipine 5 mg by mouth daily to her home regimen. She will need to follow up with her PCP for further titration if needed. TIME SPENT: Total time spent on this discharge, 40 minutes. This is a summary of the hospitalization. Please see the full medical record for further details. CC: Dr. Damon* [id number]/CPS #: [id number] [id number]
== END 2016-11-23 17:34 ==
LOC: ED 09:00 → MEDTELE 12:06
PROVIDERS: ADMIT Internal Medicine; ATTEND Hospitalist
DX: I16.0 Hypertensive urgency (principal); R41.82 Altered mental status, unspecified; J45.909 Unspecified asthma, uncomplicated; E78.5 Hyperlipidemia, unspecified; I48.91 Unspecified atrial fibrillation; Z79.01 Long term (current) use of anticoagulants; Z86.711 Personal history of pulmonary embolism; Z79.899 Other long term (current) drug therapy; Z87.891 Personal history of nicotine dependence
CPT/HCPCS: 36415; 70450; 71010; 80048; 80053; 81003; 83605; 84484; 85025; 85060; 86140; 87641; 93005; 94760; 99284; A9270-GY; G0378

== ENCOUNTER 2017-04-03 11:49 | Observation (INO) | payer MEDICARE, MEDICAID ==
[2017-04-03] MEDS ORDERED: NS 0.9% 1000 ML* 1,000 ML IV ONE ×3 (12:26→16:25)
--- NOTE | 2017-04-03 13:18 | RAD ---
Indication: Confusion. Single frontal view of the chest performed at 1300 hours was reviewed. Comparison is made with previous exam dated November 22, 2016. No mediastinal shift is noted. There is cardiomegaly noted. Elevated right hemidiaphragm is noted. Lung castro appear clear. IMPRESSION: NO ACTIVE CARDIOPULMONARY DISEASE IS NOTED. CHRONIC ELEVATED RIGHT HEMIDIAPHRAGM.
[2017-04-03 13:36] LABS: Hematocrit 39 % (35-47); Hemoglobin 12.8 g/dl (12.0-16.0); Mean Corpuscular HGB Conc 33 g/dl (31-36); Mean Corpuscular Hemoglobin 32 pg (27-31); Mean Corpuscular Volume 97 fL (80-97); Mean Platelet Volume 10 um3 (7.4-10.4); Red Blood Count 4.07 10^6/ul (4.0-5.4); Red Cell Distribution Width 16 % (10.5-15); White Blood Count 8.6 10^3/ul (3.5-10.8)
[2017-04-03 13:57] LABS: Albumin 3.1 g/dL (3.2-5.2); BUN/Creatinine Ratio 32.4 (8-20); C Reactive Protein 3.35 mg/L (< 5.00); Calcium 8.7 mg/dL (8.6-10.3); EGFR African American 48.6 (>60); EGFR Non-African American 37.8 (>60); Magnesium 2.2 mg/dL (1.9-2.7); Potassium 3.4 mmol/L (3.5-5.0); Total Bilirubin 0.4 mg/dL (0.2-1.0); Total Protein 6.1 g/dL (6.4-8.9)
[2017-04-03 13:58] LABS: Troponin I 0.03 ng/mL (<0.04)
[2017-04-03 14:04] LABS: TSH (Thyroid Stimulating Horm) 2.07 mcIU/mL (0.34-5.60)
[2017-04-03 16:41] LABS: Urine Bilirubin Negative (Negative); Urine Glucose Negative (Negative); Urine Nitrite Negative (Negative)
[2017-04-03 16:51] LABS: Benzodiazepine Urine Screen None Detected (None Detect)
--- NOTE | 2017-04-03 19:35 | RAD ---
INDICATION: Change in mental status COMPARISON: CT brain October 24, 2016 TECHNIQUE: Noncontrast axial source images were acquired from the skull base to the vertex. FINDINGS: Ventricles/sulci: There is age-related cortical atrophy with compensatory dilatation of the CSF spaces. Brain parenchyma: There is no focal parenchymal finding, evidence of intracranial mass, or intracranial mass effect. Intracranial hemorrhage:None. Extra-axial spaces: There are no abnormal extra axial fluid collections or evidence of extra-axial mass. Calvarium: There is no calvarial fracture or other calvarial abnormality. Scalp: There is no evidence of scalp or extracalvarial soft tissue abnormality. Paranasal sinuses/mastoid: The paranasal sinuses and mastoid air cells are clear. Other: None. IMPRESSION: Cortical involutional changes. No acute findings
[2017-04-03] MEDS ORDERED: Acetaminophen TAB* 325 MG PO PRN (19:58)
[2017-04-03] MEDS ORDERED: Ondansetron INJ* 2 MG/ML VIAL IV PRN (19:58)
[2017-04-03] MEDS ORDERED: Potassium Chlor TAB* 20 MEQ TAB.ER PO ONE (20:04)
--- NOTE | 2017-04-03 20:54 | ED ---
Beto Agee Benjamin, scribed for Vj Young MD on 04/03/17 at 1248 . Complex/Multi-Sys Presentation - HPI Summary HPI Summary: 76yo female From [facility]. Per [facility] caretakers, pt has been having increased weakness over the past few days. Pt had fallen twice in the past 24 hours. Pt is normally independent, able to ambulate on her own. Pt is sleeping at the time seen. - History Of Current Complaint Chief Complaint: EDGeneral Time Seen by Provider: 04/03/17 11:59 Hx Obtained From: Family/Graphic User Interface Designer - [facility] report Hx From Patient Unobtainable Due To: Other - in sleep Onset/Duration: Gradual Onset, Lasting Days, Still Present Timing: Constant Severity Currently: Mild Severity Initially: Mild Location: Negative Associated Signs And Symptoms: Positive: Weakness - Allergies/Home Medications Allergies/Adverse Reactions: Allergies Allergy/AdvReac Type Severity Reaction Status Date / Time Codeine Allergy Unknown Verified 10/24/16 13:13 Reaction Details Home Medications: Home Medications Aspirin EC Low Dose* [Ecotrin EC Low Dose 81 MG*] 81 mg PO DAILY 04/03/17 [ History Confirmed 04/03/17] Brimonidine 0.2 % * [Alphagan P 0.2% *] 1 drop OPHTHALMIC BID 04/03/17 [History Confirmed 04/03/17] Budesonide/Formote 160/4.5(NF) [Symbicort 160/4.5 (NF)] 2 puff INH BID 04/03/17 [History Confirmed 04/03/17] Bumetanide TAB* [Bumex 1 MG TAB*] 1 mg PO DAILY 04/03/17 [History Confirmed 11/15] Carvedilol TAB* [Coreg TAB*] 50 mg PO BID 04/03/17 [History Confirmed 04/03/17] Dorzolamide 2% OPTH (NF) [Trusopt 2% OPTH (NF)] 1 drop BOTH EYES BID 04/03/17 [ History Confirmed 04/03/17] Lactic Acid (Ammonium Lactate) [Ammonium Lactate] 12 % TOPICAL BID 04/03/17 [ History Confirmed 04/03/17] Latanoprost [Latanoprost] 1 drop BOTH EYES BEDTIME 04/03/17 [History Confirmed 04/03/17] Levothyroxine TAB* [Synthroid TAB*] 150 mcg PO QAM 04/03/17 [History Confirmed 04/03/17] Lurasidone HCl [Latuda] 90 mg PO BEDTIME 04/03/17 [History Confirmed 04/03/17] Multiple Vitamins W/ Minerals [Preservision Areds 2 + Mu] 1 cap PO DAILY [History Confirmed 04/03/17] Omeprazole CAP* [Prilosec CAP* 20 MG] 20 mg PO DAILY 04/03/17 [History Confirmed 04/03/17] Potassium Chlor TAB* [Klor Con ER TAB*] 10 meq PO DAILY 04/03/17 [History Confirmed 04/03/17] Primidone TAB(*) [Mysoline TAB(*)] 200 mg PO BEDTIME 04/03/17 [History Confirmed 04/03/17] Umeclidinium [place] [Incruse Ellipta] 62.5 mcg INH DAILY 04/03/17 [History Confirmed 04/03/17] traMADol TAB* [Ultram*] 50 mg PO BID PRN 04/03/17 [History Confirmed 04/03/17] PMH/Surg Hx/FS Hx/Imm Hx Cardiovascular History: Reports: Hx Hypertension Respiratory History: Reports: Hx Asthma Sensory History: Reports: Hx Cataracts, Hx Contacts or Glasses, Hx Glaucoma, Hx Macular Degeneration, Hx Vision Problem Denies: Hx Eye Injury, Hx Eye Prosthesis, Hx Legally Blind, Hx Deafness, Hx Hearing Aid, Hx Hearing Problem Opthamlomology History: Reports: Hx Cataracts, Hx Contacts or Glasses, Hx Glaucoma, Hx Macular Degeneration, Hx Vision Problem Denies: Hx Eye Injury, Hx Eye Prosthesis, Hx Legally Blind Neurological History: Denies: Hx Dementia Infectious Disease History: No Infectious Disease History: Denies: Traveled Outside the [place] in Last 30 Days - Family History Known Family History: Positive: Hypertension - Social History Occupation: Retired Lives: [facility] Alcohol Use: None Substance Use Type: Reports: None Smoking Status (MU): Former Smoker Type: Cigarettes Review of Systems Constitutional: Negative Eyes: Negative ENT: Negative Cardiovascular: Negative Respiratory: Negative Gastrointestinal: Negative Genitourinary: Negative Musculoskeletal: Negative Skin: Negative Positive: Weakness Psychological: Normal All Other Systems Reviewed And Are Negative: Yes Physical Exam Triage Information Reviewed: Yes Vital Signs On Initial Exam: Initial Vitals Temp Pulse Resp BP Pulse Ox 97.5 F 89 16 98/49 87 04/03/17 12:02 04/03/17 12:02 04/03/17 12:02 04/03/17 12:02 04/03/17 12:02 Vital Signs Reviewed: Yes Completion Of Physical Exam Limited Due To: Other - stuporous, only arousal to noxious stimuli Appearance: Positive: Well-Appearing, No Pain Distress, Obese Skin: Positive: Warm, Skin Color Reflects Adequate Perfusion, Dry Head/Face: Positive: Normal Head/Face Inspection, Temporal Artery Tenderness Eyes: Positive: Normal ENT: Positive: Normal ENT inspection, Hearing grossly normal Neck: Positive: Supple, Nontender Respiratory/Lung Sounds: Positive: Clear to Auscultation, Breath Sounds Present Cardiovascular: Positive: RRR Abdomen Description: Positive: Nontender, Soft Bowel Sounds: Positive: Present Neurological: Positive: Sensory/Motor Intact, CN Intact II-III, Reflexes Intact , Other - only arousal to noxious stimuli Psychiatric: Positive: Affect/Mood Appropriate - Jerome Coma Scale Coma Scale Total: 14 Diagnostics - Vital Signs Vital Signs Temp Pulse Resp BP Pulse Ox 04/03/17 12:04 97.5 F 87 16 98/49 95 04/03/17 12:02 97.5 F 89 16 98/49 87 - Laboratory Lab Results: Lab Results 04/03/17 04/03/17 04/03/17 Range/Units 12:45 12:45 12:45 WBC 8.6 (3.5-10.8) 10^3/ul RBC 4.07 (4.0-5.4) 10^6/ul Hgb 12.8 (12.0-16.0) g/dl Hct 39 (35-47) % MCV 97 (80-97) fL MCH 32 H (27-31) pg MCHC 33 (31-36) g/dl RDW 16 H (10.5-15) % Plt Count 103 L (150-450) 10^3/ul MPV 10 (7.4-10.4) um3 Neut % (Auto) 67.2 (38-83) % Lymph % (Auto) 20.4 L (25-47) % [place] % (Auto) 10.6 H (1-9) % Eos % (Auto) 1.4 (0-6) % Baso % (Auto) 0.4 (0-2) % Absolute Neuts (auto) 5.8 (1.5-7.7) 10^3/ul Absolute Lymphs (auto) 1.8 (1.0-4.8) 10^3/ul Absolute Monos (auto) 0.9 H (0-0.8) 10^3/ul Absolute Eos (auto) 0.1 (0-0.6) 10^3/ul Absolute Basos (auto) 0 (0-0.2) 10^3/ul Absolute Nucleated RBC 0 10^3/ul Nucleated RBC % 0 Sodium 144 (133-145) mmol/L Potassium 3.4 L (3.5-5.0) mmol/L Chloride 104 (101-111) mmol/L Carbon Dioxide 33 H (22-32) mmol/L Anion Gap 7 (2-11) mmol/L BUN 44 H (6-24) mg/dL Creatinine 1.36 H (0.51-0.95) mg/dL Est GFR ( Amer) 48.6 (>60) Est GFR (Non-Af Amer) 37.8 (>60) BUN/Creatinine Ratio 32.4 H (8-20) Glucose 90 (70-100) mg/dL Lactic Acid 1.4 (0.5-2.0) mmol/L Calcium 8.7 (8.6-10.3) mg/dL Magnesium 2.2 (1.9-2.7) mg/dL Total Bilirubin 0.40 (0.2-1.0) mg/dL AST 16 (13-39) U/L ALT 11 (7-52) U/L Alkaline Phosphatase 66 (34-104) U/L Troponin I 0.03 (<0.04) ng/mL C-Reactive Protein 3.35 (< 5.00) mg/L Total Protein 6.1 L (6.4-8.9) g/dL Albumin 3.1 L (3.2-5.2) g/dL Globulin 3.0 (2-4) g/dL Albumin/Globulin Ratio 1.0 (1-3) TSH 2.07 (0.34-5.60) mcIU/mL Urine Color Urine Appearance Urine pH (5-9) Ur Specific [place] (1.010-1.030) Urine Protein (Negative) Urine Ketones (Negative) Urine Blood (Negative) Urine Nitrate (Negative) Urine Bilirubin (Negative) Urine Urobilinogen (Negative) Ur Leukocyte Esterase (Negative) Urine Glucose (Negative) Urine Ascorbic Acid (Negative) Urine Opiates Screen (None Detect) Ur Barbiturates Screen (None Detect) Valproic Acid Pending Ur Phencyclidine Scrn (None Detect) Ur Amphetamines Screen (None Detect) U Benzodiazepines Scrn (None Detect) Urine Cocaine Screen (None Detect) U Cannabinoids Screen (None Detect) 04/03/17 04/03/17 Range/Units 16:25 16:25 WBC (3.5-10.8) 10^3/ul RBC (4.0-5.4) 10^6/ul Hgb (12.0-16.0) g/dl Hct (35-47) % MCV (80-97) fL MCH (27-31) pg MCHC (31-36) g/dl RDW (10.5-15) % Plt Count (150-450) 10^3/ul MPV (7.4-10.4) um3 Neut % (Auto) (38-83) % Lymph % (Auto) (25-47) % [place] % (Auto) (1-9) % Eos % (Auto) (0-6) % Baso % (Auto) (0-2) % Absolute Neuts (auto) (1.5-7.7) 10^3/ul Absolute Lymphs (auto) (1.0-4.8) 10^3/ul Absolute Monos (auto) (0-0.8) 10^3/ul Absolute Eos (auto) (0-0.6) 10^3/ul Absolute Basos (auto) (0-0.2) 10^3/ul Absolute Nucleated RBC 10^3/ul Nucleated RBC % Sodium (133-145) mmol/L Potassium (3.5-5.0) mmol/L Chloride (101-111) mmol/L Carbon Dioxide (22-32) mmol/L Anion Gap (2-11) mmol/L BUN (6-24) mg/dL Creatinine (0.51-0.95) mg/dL Est GFR ( Amer) (>60) Est GFR (Non-Af Amer) (>60) BUN/Creatinine Ratio (8-20) Glucose (70-100) mg/dL Lactic Acid (0.5-2.0) mmol/L Calcium (8.6-10.3) mg/dL Magnesium (1.9-2.7) mg/dL Total Bilirubin (0.2-1.0) mg/dL AST (13-39) U/L ALT (7-52) U/L Alkaline Phosphatase (34-104) U/L Troponin I (<0.04) ng/mL C-Reactive Protein (< 5.00) mg/L Total Protein (6.4-8.9) g/dL Albumin (3.2-5.2) g/dL Globulin (2-4) g/dL Albumin/Globulin Ratio (1-3) TSH (0.34-5.60) mcIU/mL Urine Color Yellow Urine Appearance Clear Urine pH 5.0 (5-9) Ur Specific [place] 1.016 (1.010-1.030) Urine Protein Negative (Negative) Urine Ketones Negative (Negative) Urine Blood Negative (Negative) Urine Nitrate Negative (Negative) Urine Bilirubin Negative (Negative) Urine Urobilinogen Negative (Negative) Ur Leukocyte Esterase Negative (Negative) Urine Glucose Negative (Negative) Urine Ascorbic Acid * H (Negative) Urine Opiates Screen None detected (None Detect) Ur Barbiturates Screen Presumptive positive H (None Detect) Valproic Acid Ur Phencyclidine Scrn None detected (None Detect) Ur Amphetamines Screen None detected (None Detect) U Benzodiazepines Scrn None detected (None Detect) Urine Cocaine Screen None detected (None Detect) U Cannabinoids Screen None detected (None Detect) Result Diagrams: 04/03/17 12:45 04/03/17 12:45 Lab Statement: Any lab studies that have been ordered have been reviewed, and results considered in the medical decision making process. - Radiology CXR Xray Interpretation: No Acute Changes - IMPRESSION: NO ACTIVE CARDIOPULMONARY DISEASE IS NOTED. CHRONIC ELEVATED RIGHT HEMIDIAPHRAGM. Radiology Interpretation Completed By: Radiologist - EKG 1257. Cardiac Rate: NL - 98bpm EKG Rhythm: Atrial Fibrillation ST Segment: Normal Ectopy: None Complex Multi-Symp Course/Dx Course Of Treatment: Reviewed pt's medications list and allergies. Assessment/Plan: I was unable to find a reason for her lethargy. She was quite sleepy but would wake up some and answer simple questions. Interestingly, her urine tox showed barbiturates which do not appear on her med list. The hospitalists were consulted. - Diagnoses Provider Diagnoses: Stupor - Critical Care Time Critical Care Time: 30-74 min Discharge - Discharge Plan Condition: Stable Disposition: ADMITTED TO [facility] documentation as recorded by the Beto english Benjamin accurately reflects the service I personally performed and the decisions made by me, Vj Young MD.
[2017-04-03] MEDS ORDERED: Primidone TAB(*) 50 MG PO SCH (21:00)
[2017-04-03] MEDS ORDERED: CMCS: Escitalopram (NF) 10 MG TAB PO SCH (21:00)
[2017-04-03] MEDS ORDERED: Divalproex DR TAB(*) 250 MG PO SCH (21:00)
[2017-04-03] MEDS ORDERED: Latanoprost 0.005%* 2.5 ml BTL BOTH EYES SCH (21:00)
[2017-04-03] MEDS ORDERED: CMCS: Lurasidone (NF) 20 MG TAB PO SCH (21:00)
[2017-04-03] MEDS ORDERED: Montelukast Sodium TAB* 10 MG PO SCH (21:00)
[2017-04-03] MEDS: NS 0.9% 1000 ML* 1,000 ML IV SCH (21:35)
[2017-04-03] MEDS: PTO:Dorzolamide 2% OPTH (NF) 10 ML BTL BOTH EYES SCH (22:01)
[2017-04-03] MEDS: Gabapentin CAP(*) 100 MG PO SCH (22:17)
[2017-04-03] MEDS: Fluticasone NASAL SPRAY 50MCG* 16 gm SPRAY BTL BOTH NARES SCH (22:23)
--- NOTE | 2017-04-04 02:09 | HP ---
CC: Dr. Damon * HISTORY AND PHYSICAL: DATE OF ADMISSION: 04/03/17 PRIMARY CARE PROVIDER: Dr. Damon. ATTENDING PHYSICIAN WHILE IN THE HOSPITAL: Emanuel Love MD * (report dictated by Anna Gold NP). CHIEF COMPLAINT: Altered mental status. HISTORY OF PRESENT ILLNESS: Mrs. Mayers is a 76-year-old female patient who comes into the ER today stating that last few days she has been sleepy and having altered mental status. It was also noted that she fell twice today at her [place] [facility]. She lives at [facility]. She comes in and stated that she just has been feeling tired. She denies having any fevers, chills, no chest pain, no shortness of breath. She denies having any abdominal discomfort or any nausea or vomiting. She states she has been taking her medications as prescribed and there has not been any recent changes. She does state that somebody put her on Depakote, but she looks like she has been on Depakote since September of this year for about 7 months at least. She says that she has just been tired, not feeling herself. She was concerned and the patient was brought into the emergency department because she had fallen twice, was not acting herself, was acting confused. Interestingly enough, it did show that the patient tested positive for barbiturates, although I question if one of her medications may be causing a false positive. Her meds are distributed by the [facility]. I did question the staff there if there is any chance that there may have been a mix up, they reassured me that there has not been. She came in and was evaluated. It was noted throughout the stay here that she was drowsy. CT scan was negative, but because of the altered mental status, we were asked to evaluate for admission. There has been no reports of slurred speech, weakness to one side, or facial drooping. PAST MEDICAL HISTORY: Significant for: 1. Afib. 2. Hyperlipidemia. 3. History of PE. 4. Hypertension. 5. Asthma. PAST SURGICAL HISTORY: She has had a right total knee replacement and appendectomy. MEDICATIONS: According to a list that I was actually faxed from [place] include: 1. Gabapentin 200 mg p.o. t.i.d. 2. Singulair 10 mg at h.s. 3. Depakote 500 mg in the morning and 750 mg at bedtime. 4. Lexapro 5 mg daily. 5. Aspirin 81 mg daily. 6. Potassium 10 mEq daily. 7. Rivaroxaban 20 mg daily. 8. Omeprazole 20 mg daily. 9. Primidone 50 mg daily. 10. Carvedilol 50 mg p.o. every 12 hours. 11. Fluticasone 1 spray b.i.d. 12. Latuda 90 mg p.o. q.h.s. 13. Bumex 1 mg daily. 14. Symbicort 2 puffs inhale b.i.d. 15. Ammonia lactate 12% apply to affected area b.i.d. 16. Alphagan 1 drop both eyes b.i.d. 17. Synthroid 150 mcg p.o. daily. 18. Incruse Ellipta 6.25 mcg inhale daily. 19. Healthy Eyes 1 capsule p.o. b.i.d. 20. Dorzolamide 1 drop each eye b.i.d. 21. Micro-Guard powder apply topically b.i.d. 22. Latanoprost 1 drop each eye at h.s. ALLERGIES TO MEDICATIONS: Include CODEINE. FAMILY HISTORY: Her mother's history, patient states that she of old age. Father had a history of . 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 She does not use any recreational drugs. Lives at [facility]. Surrogate decision maker is her sister. REVIEW OF SYSTEMS: There is no documented fever. She denied having any significant weight change. No double vision. No ear discharge. No rhinorrhea. No sore throat, no thyroid enlargement. Denied having any chest pain. There is no orthopnea. No nocturnal dyspnea. There was no abdominal mcmillan. No nausea, no vomiting, no dysuria, no frequency, no seizure. There is no loss of consciousness, no pruritus, and no skin ulcerations. Review of 14 systems completed, all others negative. PHYSICAL EXAMINATION GENERAL: At this time, Mrs. Mayers is a 76-year-old female patient. She appears to be well nourished, well developed. She does not appear to be in any acute distress. VITAL SIGNS: Blood pressure 153/58, pulse of 88, respirations 18, O2 sat 100%, temperature 97.5. HEENT: Head is atraumatic, normocephalic. Eyes: EOMs intact. Sclerae anicteric, not pale. Throat: Oral mucosa appears to be moist. NECK: Supple. LUNGS: Clear to auscultation bilaterally. No wheezes, rales, or rhonchi. HEART: Sounds S1, S2. Regular rate and rhythm. No murmurs, rubs, or gallops. ABDOMEN: Soft, flat, nontender. Bowel sounds present. EXTREMITIES: Pulses were 2+ throughout. She is able to move all 4 extremities with 5/5 strength. NEUROLOGIC: She is drowsy but she awakens to her name. She is awake, alert. She is appropriate x3. Service Observer were equal. Tongue was midline. She had no facial drooping. Speech is clear. No gross focal deficits. SKIN: Grossly intact. DIAGNOSTIC STUDIES/LAB DATA: Labs reveal WBC of 8.6, RBC of 4.07, hemoglobin of 12.8, hematocrit of 39, platelet count of 103,00. Sodium was 144, potassium 3.4, chloride of 104, bicarb 33, BUN 44, creatinine 1.36, glucose 90, lactate 1.4, calcium 8.7, mag 2.2. Total bili 0.4, AST 16, ALT 11. Alk phos 66, troponin 0.03. Albumin was 3.1. TSH at 2.07. Urine was negative. Toxicology was positive for barbiturates. Ammonia and Depakote had been ordered and are pending. CT brain, impression: Cortical involutional change, no acute findings. Chest x-ray showed no active cardiopulmonary disease, chronic elevated right hemidiaphragm. She had an EKG obtained today, which revealed atrial fibrillation, rate of 98. No ST elevations or T-wave inversions. Old medical records were reviewed. ASSESSMENT AND PLAN: Mrs. Mayers is a 76-year-old female patient coming into the ER today with complaints of altered mental status, on evaluation found to be positive for barbiturates. In addition of this, found to be in acute renal failure. She will be admitted under observation status for: 1. Altered mental status: Etiology is unclear. It could be from polypharmacy. She is not on any barbiturates, I question if this is a false positive. I did touch base with Pharmacy to run her med list to see if could be the reason why she is positive. I think we also need to get an ammonia, because she is on Depakote. We will need to check her Depakote level. Obviously , if either one of those are high that can cause this altered mental status. We will continue with neuro checks every 2 hours, supportive care and she does not appear to be actively infected. 3. History of atrial fibrillation: Continue meds as prescribed. 4. History of bipolar and depression: Continue meds as prescribed. 5. Hypertension: Continue her meds, appears to be stable. 6. Hyperlipidemia: Continue meds as prescribed. 7. History of pulmonary embolism: Continue Xarelto. 8. Asthma: We will continue her nebulizers. 9. Glaucoma: Continue meds as prescribed. 10. DVT prophylaxis: She will be on Xarelto. 11. Code status: She is DNR. 12. Fluids, electrolytes, nutrition: She can have a regular diet. TIME SPENT: Time spent on admission approximately 60 minutes, greater than half time spent [id number] with the patient obtaining my history and physical , other half the time spent going over the plan of care with the patient and implementing the plan of care. I did discuss the plan of care with my attending, Dr. Love; he is in agreement. ANNA GOLD NP [id number]/CPS #: [id number] [email or web address]
[2017-04-04] MEDS ORDERED: Levothyroxine TAB* 150 MCG TAB PO SCH (06:00)
[2017-04-04 06:29] LABS: Hematocrit 39 % (35-47); Hemoglobin 12.7 g/dl (12.0-16.0); Mean Corpuscular HGB Conc 32 g/dl (31-36); Mean Corpuscular Hemoglobin 32 pg (27-31); Mean Corpuscular Volume 98 fL (80-97); Mean Platelet Volume 9 um3 (7.4-10.4); Red Cell Distribution Width 16 % (10.5-15); White Blood Count 9.1 10^3/ul (3.5-10.8)
[2017-04-04 06:30] LABS: Comments Flag Yes
[2017-04-04] MEDS: NS 0.9% 1000 ML* 1,000 ML IV SCH (06:34)
[2017-04-04 07:05] LABS: BUN/Creatinine Ratio 31.2 (8-20); Calcium 8.5 mg/dL (8.6-10.3); EGFR African American 75.4 (>60); EGFR Non-African American 58.6 (>60); Potassium 4.1 mmol/L (3.5-5.0)
[2017-04-04] MEDS ORDERED: Omeprazole CAP* 20 MG PO SCH (07:30)
[2017-04-04] MEDS: Fluticasone NASAL SPRAY 50MCG* 16 gm SPRAY BTL BOTH NARES SCH (07:59)
[2017-04-04] MEDS: Gabapentin CAP(*) 100 MG PO SCH ×2 (08:00→14:26)
[2017-04-04] MEDS: PTO:Dorzolamide 2% OPTH (NF) 10 ML BTL BOTH EYES SCH (08:00)
[2017-04-04] MEDS ORDERED: Divalproex DR TAB(*) 250 MG PO SCH ×2 (09:00→14:15)
[2017-04-04] MEDS ORDERED: [UNRECOGNIZED DRUG - OTHER] PO SCH (09:00)
[2017-04-04] MEDS ORDERED: Umeclidin 62.5 MDI(NF) 1 INH MDI INH SCH (09:00)
[2017-04-04] MEDS ORDERED: Aspirin EC Low Dose* 81 MG TAB.EC PO SCH (09:00)
[2017-04-04] MEDS ORDERED: Potassium Chlor TAB* 10 MEQ TAB.ER PO SCH (09:00)
[2017-04-04 10:21] LABS: Benzodiazepine Urine Screen None Detected (None Detect)
[2017-04-04 12:18] VITALS: BP 145/45
[2017-04-04] MEDS ORDERED: PTO:Umeclidin/Vilant 62.5 MDI 62.5/25 mcg 14 INH ELLIPTA DEVICE INH SCH (14:00)
[2017-04-04] MEDS ORDERED: Primidone TAB(*) 50 MG PO SCH (14:15)
[2017-04-04] MEDS ORDERED: PTO: Escitalopram (NF) 20 MG TAB PO SCH (14:19)
[2017-04-04] MEDS ORDERED: LURASIDONE 60 MG PO SCH (17:00)
[2017-04-04] MEDS ORDERED: Rivaroxaban TAB(*) 20 MG TAB PO SCH (17:00)
--- NOTE | 2017-04-05 03:27 | DS ---
CC: Dr. Damon DISCHARGE SUMMARY: DATE OF ADMISSION: 04/03/17 DATE OF DISCHARGE: 04/04/17 HISTORY: This 76-year-old woman is admitted for altered mental status. She is a resident of [place]. She has had a number of falls. I spoke to her primary care doctor, Dr. Damon. He states she is be ing treated for bipolar disorder by the psychiatrist who has prescribed both divalproex acid and her primidone. The patient had x-rays of her right arm as well as a CT scan of her head, there were no acute injuries or changes. Routine labs were unremarkable. Depakote level was 80.0, it had been [address] Damon. Phenobarbital level is pending at this time. BUN was 29, creatinin e 0.93. White count is 9.1, hemoglobin 12.7, platelets 97,000. I note she has had low platelet cou nts every visit in this hospital since October of this year, the lowest being 76 and the highest 12 2. The patient was seen by Physical Therapy and was felt to be at near her baseline status. I think armin richard would probably benefit from continuous physical therapy to improve her ability to ambulate safely. She seemed a little drowsy at times when I spoke to her, although after talking to her for a while, she seemed quite alert. I suspect she might be better on lower doses of medications. I have lowere d her valproic acid dose and her primidone dose. FINAL DIAGNOSES: 1. Altered mental status, possibly related to polypharmacy. 2. Bipolar disorder. 3. History of atrial fibrillation. 4. Chronic obstructive pulmonary disease. DISCHARGE MEDICATIONS: 1. Maalox Plus 15 mL every 14 hours p.r.n. 2. Kaopectate 30 mL daily p.r.n. 3. Acetaminophen 650 mg every 4 hours p.r.n. 4. Menthol cough drops as needed. 5. Escitalopram oxalate 20 mg h.s. 6. Divalproex sodium 500 mg in the evening, 250 mg in the morning. 7. Montelukast 10 mg h.s. 8. Gabapentin 200 mg t.i.d. 9. Rivaroxaban 20 mg daily. 10. Atorvastatin 10 mg h.s. 11. Fluticasone nasal spray both nares b.i.d. 12. Tramadol 50 mg b.i.d. p.r.n. 13. Levothyroxine 150 mcg daily. 14. Brimonidine 0.2% 1 drop both eyes b.i.d. 15. Lactic acid 12% topically b.i.d. 16. Primidone 150 mg h.s. 17. Carvedilol 50 mg b.i.d. 18. Omeprazole 20 mg daily. 19. Potassium chloride 10 mEq daily. 20. Aspirin 81 mg daily. 21. Lurasidone 90 mg h.s. 22. Dorzolamide 2% 1 drop both eyes b.i.d. 23. Latanoprost 1 drop both eyes at bedtime. 24. Multivitamin with mineral daily. 25. Bumetanide 1 mg daily. 26. Budesonide/formoterol 160/4.5 two puffs b.i.d. 27. Umeclidinium bromide 62.5 inhalation daily. [id number]/[facility] #: [id number]
[2017-04-05] MEDS ORDERED: Divalproex DR TAB(*) 250 MG PO SCH (09:00)
== END 2017-04-04 16:05 ==
LOC: ED 11:49 → MED 19:55
PROVIDERS: ADMIT Hospitalist; ATTEND Internal Medicine
DX: R41.82 Altered mental status, unspecified (principal); F31.9 Bipolar disorder, unspecified; J44.9 Chronic obstructive pulmonary disease, unspecified; I48.91 Unspecified atrial fibrillation; Z79.82 Long term (current) use of aspirin; R53.1 Weakness; Z87.891 Personal history of nicotine dependence; I10 Essential (primary) hypertension; J45.909 Unspecified asthma, uncomplicated; E78.5 Hyperlipidemia, unspecified; Z86.711 Personal history of pulmonary embolism; Z79.01 Long term (current) use of anticoagulants
CPT/HCPCS: 36415; 70450; 71010; 80048; 80053; 80164; 80184; 80307; 81003; 82140; 82570; 83605; 83735; 84300; 84443; 84484; 85025; 85610; 86140; 87641; 93005; 94760; 99284; A9270-GY; G0378; G8978-GP-CJ; G8979-GP-CI; G8980-GP-CI

== ENCOUNTER → 2017-05-25 02:07 | Emergency (ER) | payer MEDICARE, MEDICAID ==
[~2017-05-25 02:07] MED LIST: Tetan/Diph/Pertus SYR(Tdap)* 0.5 ML SYR(BOOSTRIX) use SYR IM ONE
[2017-05-25 02:34] VITALS: BP 137/45
--- NOTE | 2017-05-25 04:12 | PN ---
Progress Note - Progress Note Date of Service: 05/25/17 Note: sutures placed by Yana ESPINAL lac right montague 6cm by 1cm by 1/4cm irrigated with 500cc clean wound no foreign body placed 7 sutures with one vertical mattresses single layer placed neosporin, telfa and denzel
--- NOTE | 2017-05-25 04:48 | ED ---
Evangelist Agee Rebecca, scribed for GeorgettetramTerrell on 05/25/17 at 0307 . Adult Trauma - HPI Summary HPI Summary: Pt is a 76 y/o F who presents to ED c/o montague laceration s/p mechanical fall. At approximately 0130 this morning, the pt reports she "forgot that I am supposed to use a walker" causing her fall. Pt c/o mild pain in the L hip and a laceration to the R montague. Denies R hip or bilateral knee and ankle pain. Pain is currently mild, ranked 2/10. - History of Current Complaint Chief Complaint: EDExtremityLower Stated Complaint: LACERATION Time Seen by Provider: 05/25/17 02:59 Hx Obtained From: Patient Mechanism of Injury: Fall Onset/Duration: Started Hours Ago, Traumatic, Still Present Current Severity: Mild Pain Intensity: 2 Pain Scale Used: 0-10 Numeric Location: Other - Left hip Associated Signs & Symptoms: Positive: Other: - R montague laceration - Additional Pertinent History Primary Care Physician: KHADAR - Allergy/Home Medications Allergies/Adverse Reactions: Allergies Allergy/AdvReac Type Severity Reaction Status Date / Time Codeine Allergy Unknown Verified 05/25/17 02:34 Reaction Details PMH/Surg Hx/FS Hx/Imm Hx Cardiovascular History: Reports: Hx Hypertension Respiratory History: Reports: Hx Asthma Denies: Hx Chronic Obstructive Pulmonary Disease (COPD) History: Denies: Hx Dialysis Musculoskeletal History: Denies: Hx Back Problems Sensory History: Reports: Hx Cataracts, Hx Contacts or Glasses, Hx Glaucoma, Hx Macular Degeneration, Hx Vision Problem Denies: Hx Eye Injury, Hx Eye Prosthesis, Hx Legally Blind, Hx Deafness, Hx Hearing Aid, Hx Hearing Problem Opthamlomology History: Reports: Hx Cataracts, Hx Contacts or Glasses, Hx Glaucoma, Hx Macular Degeneration, Hx Vision Problem Denies: Hx Eye Injury, Hx Eye Prosthesis, Hx Legally Blind Neurological History: Denies: Hx Dementia Infectious Disease History: No Infectious Disease History: Denies: Hx of Known/Suspected MRSA, Traveled Outside the [place] in Last 30 Days - Family History Known Family History: Positive: Hypertension - Social History Alcohol Use: None Substance Use Type: Reports: None Smoking Status (MU): Former Smoker Type: Cigarettes Review of Systems Positive: Arthralgia - L hip pain; NEGATIVE: R hip pain, bilateral knee and ankle pain Positive: Other - R montague laceration All Other Systems Reviewed And Are Negative: Yes Physical Exam - Summary Physical Exam Summary: Appearance: Well appearing, no pain distress Skin: warm, dry, reflects adequate perfusion Head/face: normal Eyes: EOMI, CONTRERAS ENT: normal Neck: supple, nontender Respiratory: CTA, breath sounds present Cardiovascular: RRR, pulses symmetrical Abdomen: nontender, soft Bowel: present Musculoskeletal: tenderness in the L pelvis, swelling and laceration (6 cm long ) on the R leg, strength/ROM intact Neuro: normal, sensory motor intact, A&Ox3 Triage Information Reviewed: Yes Vital Signs On Initial Exam: Initial Vitals Temp Pulse Resp BP Pulse Ox 97.1 F 74 12 137/45 0 05/25/17 02:24 05/25/17 02:24 05/25/17 02:24 05/25/17 02:24 05/25/17 02:24 Vital Signs Reviewed: Yes Diagnostics - Vital Signs Vital Signs Temp Pulse Resp BP Pulse Ox 05/25/17 02:24 97.1 F 74 12 137/45 0 - Laboratory Lab Statement: Any lab studies that have been ordered have been reviewed, and results considered in the medical decision making process. - Radiology Pelvis XR Xray Interpretation: No Acute Changes Radiology Interpretation Completed By: ED Physician Lower Extremity XR Xray Interpretation: No Acute Changes Radiology Interpretation Completed By: ED Physician Adult Trauma Course/Dx - Course Assessment/Plan: Pt is a 76 y/o F who presents to ED c/o montague laceration s/p mechanical fall. At approximately 0130 this morning, the pt reports she "forgot that I am supposed to use a walker" causing her fall. Pt c/o mild pain in the L hip and a laceration to the R montague. Denies R hip or bilateral knee and ankle pain. Pain is currently mild, ranked 2/10. Right LE and hip XR both reveal no acute findings. Pt was given Bostrix in the ED course. Laceration was sutured by KYLIE Zuniga who will write aseparate procedure note. Pt will be D/c to home with Dx of laceration and contusion with a follow up with orthopedics. Elevated BP noted and advised to f/u with PCP. - Diagnoses Provider Diagnoses: Laceration, Contusion Discharge - Discharge Plan Condition: Stable Disposition: HOME Patient Education Materials: Laceration (ED), Care For Your Stitches (ED), Contusion in Adults (ED) Referrals: Melo Damon DO [Primary Care Provider] - 3 Days Additional Instructions: Follow up in 3 days for a wound recheck. Have the sutures removed in 10 days. The documentation as recorded by the Evangelist english Rebecca accurately reflects the service I personally performed and the decisions made by , Terrell Leija.
--- NOTE | 2017-05-25 09:18 | RAD ---
Indication: Right lower leg injury after fall. 2 views of the right lower leg demonstrates no definite fracture. There may be some air within the soft tissue likely due to laceration of the soft tissue. Patient is status post right knee replacement. IMPRESSION: No fracture is noted. Likely laceration of the right leg.
--- NOTE | 2017-05-25 09:27 | RAD ---
Indication: Left-sided injury after fall. Single view the pelvis demonstrates pelvic ring to be intact. No fracture is noted. IMPRESSION: No fracture of the pelvis is noted
== END | disposition home or self-care (01) ==
LOC: ED 02:07
DX: S81.811A Laceration without foreign body, right lower leg, initial encounter (principal); S70.02XA Contusion of left hip, initial encounter; W19.XXXA Unspecified fall, initial encounter; Y93.9 Activity, unspecified; Y92.9 Unspecified place or not applicable; Z87.891 Personal history of nicotine dependence
CPT/HCPCS: 72170; 90471; 90715; 99282

== ENCOUNTER 2017-05-29 19:07 | Emergency (ER) | payer MEDICARE, MEDICAID ==
[2017-05-29] MEDS ORDERED: NS 0.9% 1000 ML* 1,000 ML IV ONE (19:41)
[2017-05-29 20:40] LABS: Hematocrit 39 % (35-47); Mean Corpuscular HGB Conc 33 g/dl (31-36); Mean Corpuscular Hemoglobin 32 pg (27-31); Mean Corpuscular Volume 97 fL (80-97); Mean Platelet Volume 9 um3 (7.4-10.4); Red Blood Count 4.01 10^6/ul (4.0-5.4); Red Cell Distribution Width 15 % (10.5-15)
[2017-05-29 20:57] LABS: Albumin 3.2 g/dL (3.2-5.2); BUN/Creatinine Ratio 35.1 (8-20); C Reactive Protein 21.04 mg/L (< 5.00); Calcium 8.5 mg/dL (8.6-10.3); EGFR African American 59.6 (>60); EGFR Non-African American 46.3 (>60); Globulin 2.8 g/dL (2-4); Potassium 4.4 mmol/L (3.5-5.0); Total Bilirubin 0.3 mg/dL (0.2-1.0)
--- NOTE | 2017-05-29 21:01 | RAD ---
INDICATION: Right lower extremity pain and swelling. COMPARISON: There are no prior studies available for comparison. TECHNIQUE: Multiple real-time, color flow and Doppler tracings of the right lower extremity were obtained. FINDINGS: The common femoral, femoral, profunda femoral and popliteal veins all demonstrate normal compressibility, augmentation with compression and phasic response with respiration. The posterior tibial and peroneal veins demonstrate normal compressibility and augmentation with compression. IMPRESSION: SLIGHTLY LIMITED EXAM, NO EVIDENCE FOR DEEP VENOUS THROMBOSIS.
[2017-05-29] MEDS ORDERED: Cephalexin CAP* 500 MG PO ONE (21:58)
[2017-05-29] MEDS ORDERED: ceFAZolin 1 GM VIAL(*) 1 GM in NS 0.9% 50 ML* 50 ML IVPB ONE (21:58)
[2017-05-29] MEDS ORDERED: traZODone TAB* 50 MG TAB PO ONE (23:16)
[2017-05-29] MEDS ORDERED: DOXYcycline CAP(*) 100 MG PO ONE (23:16)
[2017-05-29] MEDS ORDERED: traMADol TAB* 50 MG PO ONE (23:18)
--- NOTE | 2017-05-29 23:20 | ED ---
Evangelist Agee Rebecca, scribed for Sara Goldman MD on 05/29/17 at 2006 . Lower Extremity - HPI Summary HPI Summary: Pt is a 76 y/o F BIBA from the [facility] who presents to ED c/o worsening RLE pain and erythema. Pt suffered a mechanical fall 4 days ago and was evaluated by [facility] the day of the fall. She reports the pain as having worsened after the fall and is currently severe, ranked 9/10. She followed up with her PCP who started Abx. - History of Current Complaint Chief Complaint: EDExtremityLower Stated Complaint: FALL Time Seen by Provider: 05/29/17 19:43 Hx Obtained From: Patient Mechanism Of Injury: Fall From A Standing Position Onset of Pain: Days - 4 days, Prior to Arrival Onset/Duration: Still Present Severity Currently: Severe Pain Intensity: 9 Pain Scale Used: 0-10 Numeric Location: Is Discrete @ - RLE Associated Signs And Symptoms: Positive: Redness - Allergies/Home Medications Allergies/Adverse Reactions: Allergies Allergy/AdvReac Type Severity Reaction Status Date / Time Codeine Allergy Unknown Verified 05/29/17 19:38 Reaction Details PMH/Surg Hx/FS Hx/Imm Hx Cardiovascular History: Reports: Hx Hypertension Respiratory History: Reports: Hx Asthma Denies: Hx Chronic Obstructive Pulmonary Disease (COPD) History: Denies: Hx Dialysis Musculoskeletal History: Denies: Hx Back Problems Sensory History: Reports: Hx Cataracts, Hx Contacts or Glasses, Hx Glaucoma, Hx Macular Degeneration, Hx Vision Problem Denies: Hx Eye Injury, Hx Eye Prosthesis, Hx Legally Blind, Hx Deafness, Hx Hearing Aid, Hx Hearing Problem Opthamlomology History: Reports: Hx Cataracts, Hx Contacts or Glasses, Hx Glaucoma, Hx Macular Degeneration, Hx Vision Problem Denies: Hx Eye Injury, Hx Eye Prosthesis, Hx Legally Blind Neurological History: Denies: Hx Dementia Infectious Disease History: Yes Infectious Disease History: Denies: Hx of Known/Suspected MRSA, Traveled Outside the [place] in Last 30 Days - Family History Known Family History: Positive: Hypertension - Social History Alcohol Use: None Substance Use Type: Reports: Prescribed Smoking Status (MU): Former Smoker Type: Cigarettes Review of Systems Negative: Fever Positive: Arthralgia - RLE pain Positive: Other - RLE erythema All Other Systems Reviewed And Are Negative: Yes Physical Exam - Summary Physical Exam Summary: General: Well appearing, no pain distress Skin: Warm, Dry Eyes: EOMI, CONTRERAS ENT: Pharynx normal, TMs normal Neck: Supple, nontender Respiratory: CTA, breath sounds present, no rhonchi, no wheezes, no rales Cardiovascular: RRR, no murmur, no rub, no gallop Abdomen: Soft, nontender, Non-distended, no guarding, no rebound Bowel: Present Musculoskeletal: JAMES, No edema, over the anterior aspect of the RLE, she has a midline proximal laceration that has been sutured which looks clean, dry and intact which looks clean, dry and intact with some surrounding erythema. She has a hematoma more distally that is about 5 inches x 7 inches and just distal to that she has some erythema going down the rest of her leg. She also has a bulla that is about 4 cm in circumference that has brown-kacie liquid in it that is over the lateral aspect of the proximal 1/3 of the leg. She also has erythema extending proximally from the laceration and there is some erythema distally that is circumferential. Neuro: Sensory/motor intact, A&Ox3, CN intact 2-12 Psych: Affect/mood appropriate Triage Information Reviewed: Yes Vital Signs On Initial Exam: Initial Vitals Temp Pulse Resp BP Pulse Ox 97.5 F 98 16 120/52 94 05/29/17 19:20 05/29/17 19:20 05/29/17 19:20 05/29/17 19:20 05/29/17 19:20 Vital Signs Reviewed: Yes Diagnostics - Vital Signs Vital Signs Temp Pulse Resp BP Pulse Ox 05/29/17 19:20 97.5 F 98 16 120/52 94 - Laboratory Lab Results: Lab Results 05/29/17 05/29/17 05/29/17 Range/Units 20:20 20:20 20:20 WBC 8.0 (3.5-10.8) 10^3/ul RBC 4.01 (4.0-5.4) 10^6/ul Hgb 13.0 (12.0-16.0) g/dl Hct 39 (35-47) % MCV 97 (80-97) fL MCH 32 H (27-31) pg MCHC 33 (31-36) g/dl RDW 15 (10.5-15) % Plt Count 133 L (150-450) 10^3/ul MPV 9 (7.4-10.4) um3 Neut % (Auto) 73.2 (38-83) % Lymph % (Auto) 14.5 L (25-47) % Stafford % (Auto) 9.2 H (1-9) % Eos % (Auto) 2.2 (0-6) % Baso % (Auto) 0.9 (0-2) % Absolute Neuts (auto) 5.9 (1.5-7.7) 10^3/ul Absolute Lymphs (auto) 1.2 (1.0-4.8) 10^3/ul Absolute Monos (auto) 0.7 (0-0.8) 10^3/ul Absolute Eos (auto) 0.2 (0-0.6) 10^3/ul Absolute Basos (auto) 0.1 (0-0.2) 10^3/ul Absolute Nucleated RBC 0.01 10^3/ul Nucleated RBC % 0.1 INR (Anticoag Therapy) 0.85 L (0.89-1.11) Sodium 144 (133-145) mmol/L Potassium 4.4 (3.5-5.0) mmol/L Chloride 103 (101-111) mmol/L Carbon Dioxide 35 H (22-32) mmol/L Anion Gap 6 (2-11) mmol/L BUN 40 H (6-24) mg/dL Creatinine 1.14 H (0.51-0.95) mg/dL Est GFR ( Amer) 59.6 (>60) Est GFR (Non-Af Amer) 46.3 (>60) BUN/Creatinine Ratio 35.1 H (8-20) Glucose 103 H (70-100) mg/dL Lactic Acid (0.5-2.0) mmol/L Calcium 8.5 L (8.6-10.3) mg/dL Total Bilirubin 0.30 (0.2-1.0) mg/dL AST 12 L (13-39) U/L ALT 11 (7-52) U/L Alkaline Phosphatase 66 (34-104) U/L C-Reactive Protein 21.04 H (< 5.00) mg/L Total Protein 6.0 L (6.4-8.9) g/dL Albumin 3.2 (3.2-5.2) g/dL Globulin 2.8 (2-4) g/dL Albumin/Globulin Ratio 1.1 (1-3) 05/29/17 Range/Units 20:20 WBC (3.5-10.8) 10^3/ul RBC (4.0-5.4) 10^6/ul Hgb (12.0-16.0) g/dl Hct (35-47) % MCV (80-97) fL MCH (27-31) pg MCHC (31-36) g/dl RDW (10.5-15) % Plt Count (150-450) 10^3/ul MPV (7.4-10.4) um3 Neut % (Auto) (38-83) % Lymph % (Auto) (25-47) % Stafford % (Auto) (1-9) % Eos % (Auto) (0-6) % Baso % (Auto) (0-2) % Absolute Neuts (auto) (1.5-7.7) 10^3/ul Absolute Lymphs (auto) (1.0-4.8) 10^3/ul Absolute Monos (auto) (0-0.8) 10^3/ul Absolute Eos (auto) (0-0.6) 10^3/ul Absolute Basos (auto) (0-0.2) 10^3/ul Absolute Nucleated RBC 10^3/ul Nucleated RBC % INR (Anticoag Therapy) (0.89-1.11) Sodium (133-145) mmol/L Potassium (3.5-5.0) mmol/L Chloride (101-111) mmol/L Carbon Dioxide (22-32) mmol/L Anion Gap (2-11) mmol/L BUN (6-24) mg/dL Creatinine (0.51-0.95) mg/dL Est GFR ( Amer) (>60) Est GFR (Non-Af Amer) (>60) BUN/Creatinine Ratio (8-20) Glucose (70-100) mg/dL Lactic Acid 1.1 (0.5-2.0) mmol/L Calcium (8.6-10.3) mg/dL Total Bilirubin (0.2-1.0) mg/dL AST (13-39) U/L ALT (7-52) U/L Alkaline Phosphatase (34-104) U/L C-Reactive Protein (< 5.00) mg/L Total Protein (6.4-8.9) g/dL Albumin (3.2-5.2) g/dL Globulin (2-4) g/dL Albumin/Globulin Ratio (1-3) Result Diagrams: 05/29/17 20:20 05/29/17 20:20 Lab Statement: Any lab studies that have been ordered have been reviewed, and results considered in the medical decision making process. - Radiology Lower Extremity XR Xray Interpretation: No Acute Changes - Has hardware in the knee. No fracture. Radiology Interpretation Completed By: ED Physician - Ultrasound No standard instances Ultrasound Interpretation: No Acute Changes - Venous Doppler: SLIGHTLY LIMITED EXAM, NO EVIDENCE FOR DEEP VENOUS THROMBOSIS. ED physician reviewed radiology report and agrees. Ultrasound Interpretation Completed By: Radiologist Re-Evaluation - Re-Evaluation First Eval Re-Evaluation Time: 22:58 Comment: Discussed D/C plan with the pt. Lower Extremity Course/Dx - Course Course Of Treatment: 76 yo female with hematoma and laceration to leg with new blood filled bullous and a cellulits. Pt started on keflex. The sutures were removed from the laceration no pus and the bullous was opened. pt mentions hx of mrsa will cover for both mrsa and staph. - Diagnoses Provider Diagnoses: Cellulitis, Contusion - Physician Notifications Discussed Care Of Patient With: Emanuel Love Time Discussed With Above Provider: 21:30 Instructed by Provider To: Other - Will evaluate the pt in the ED. Upon evaluation, he states that the pt expresses that she would not like ot be admitted and does not require admission. Discharge - Discharge Plan Condition: Stable Disposition: HOME Prescriptions: Cephalexin CAP* [Keflex CAP*] 500 mg PO QID #28 cap Patient Education Materials: Cellulitis (ED), Contusion in Adults (ED) Referrals: Melo Damon DO [Primary Care Provider] - 3 Days The documentation as recorded by the Evangelist english Rebecca accurately reflects the service I personally performed and the decisions made by , Sara Goldman MD.
[2017-05-30 00:07] VITALS: BP 152/84
--- NOTE | 2017-05-30 07:28 | RAD ---
Indication: Leg pain after a fall Comparison: Similar radiograph dated May 25, 2017 Technique: AP and lateral views right lower leg. Report: Limited views of the right knee prosthesis demonstrate anatomic alignment. There is no visible right knee joint effusion. There is evidence of soft tissue laceration overlying the mid-level lateral right lower leg. The visualized bones are otherwise intact and appropriately aligned. IMPRESSION: Evidence of soft tissue injury without underlying fracture or dislocation. If the patient's symptoms persist, follow-up imaging is recommended.
== END 2017-05-30 00:20 | disposition home or self-care (01) ==
LOC: ED 19:07
DX: L03.90 Cellulitis, unspecified (principal); S80.11XA Contusion of right lower leg, initial encounter; W19.XXXA Unspecified fall, initial encounter; Y93.9 Activity, unspecified; Y92.9 Unspecified place or not applicable; Z87.891 Personal history of nicotine dependence
CPT/HCPCS: 36415; 80053; 83605; 85025; 85610; 86140; 87040; 99285; A9270-GY; J0690

== ENCOUNTER 2017-06-16 00:59 | Inpatient (IN) | payer MEDICARE, MEDICAID ==
[2017-06-16] MEDS ORDERED: NS 0.9% 1000 ML* 1,000 ML IV SCH (02:00)
[2017-06-16 02:29] LABS: Add Diff/Slide Review? Slide Review Added; Comments Flag Yes; Hematocrit 33 % (35-47); Hemoglobin 10.8 g/dl (12.0-16.0); Mean Corpuscular HGB Conc 33 g/dl (31-36); Mean Corpuscular Hemoglobin 32 pg (27-31); Mean Corpuscular Volume 97 fL (80-97); Mean Platelet Volume 8 um3 (7.4-10.4); Red Blood Count 3.37 10^6/ul (4.0-5.4); Red Cell Distribution Width 16 % (10.5-15); White Blood Count 7.2 10^3/ul (3.5-10.8)
[2017-06-16 02:41] LABS: Albumin 2.8 g/dL (3.2-5.2); BUN/Creatinine Ratio 27.2 (8-20); C Reactive Protein 30.95 mg/L (< 5.00); Calcium 8.4 mg/dL (8.6-10.3); EGFR African American 59.6 (>60); EGFR Non-African American 46.3 (>60); Globulin 2.9 g/dL (2-4); Potassium 3.9 mmol/L (3.5-5.0); Total Bilirubin 0.3 mg/dL (0.2-1.0); Total Protein 5.7 g/dL (6.4-8.9)
[2017-06-16 02:43] LABS: Troponin I 0.02 ng/mL (<0.04)
[2017-06-16 02:59] LABS: TSH (Thyroid Stimulating Horm) 8.93 mcIU/mL (0.34-5.60)
[2017-06-16] MEDS ORDERED: NS 0.9% 1000 ML* 1,000 ML IV ONE (04:52)
[2017-06-16 05:54] LABS: Urine Bilirubin Negative (Negative); Urine Glucose Negative (Negative); Urine Nitrite Negative (Negative)
[2017-06-16] MEDS: Mupirocin 2% OINT* TUBE TOPICAL SCH ×3 (06:48→22:48)
--- NOTE | 2017-06-16 07:07 | ED ---
Romie Agee Nikita, scribed for Rohit Velez MD on 06/16/17 at 0514 . 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 The patient rates the pain 0/10 in severity. Symptoms aggravated by nothing. Symptoms alleviated by nothing. Patient reports small skin tear at right LE ( has dressing) and multiple ecchymosis areas in bilateral UE. Pt reports these episodes occur when her BP medications are changed (recent change occurred). - History Of Current Complaint Chief Complaint: EDSyncope Stated Complaint: FALL Time Seen by Provider: 06/16/17 02:41 Hx Obtained From: Patient, EMS Onset/Duration: Resolved Character: Dizzy Aggravating Factor(s): Nothing Alleviating Factor(s): Nothing Associated Signs And Symptoms: Positive: Other: - Patient reports small skin tear at right LE (has dressing) and multiple ecchymosis areas in bilateral UE. Pt reports these episodes occur when her BP medications are changed (recent change occurred). - Allergies/Home Medications Allergies/Adverse Reactions: Allergies Allergy/AdvReac Type Severity Reaction Status Date / Time Codeine Allergy Unknown Verified 06/16/17 06:37 Reaction Details PMH/Surg Hx/FS Hx/Imm Hx Cardiovascular History: Reports: Hx Hypertension Respiratory History: Reports: Hx Asthma Denies: Hx Chronic Obstructive Pulmonary Disease (COPD) History: Denies: Hx Dialysis Musculoskeletal History: Denies: Hx Back Problems Sensory History: Reports: Hx Cataracts, Hx Contacts or Glasses, Hx Glaucoma, Hx Macular Degeneration, Hx Vision Problem Denies: Hx Eye Injury, Hx Eye Prosthesis, Hx Legally Blind, Hx Deafness, Hx Hearing Aid, Hx Hearing Problem Opthamlomology History: Reports: Hx Cataracts, Hx Contacts or Glasses, Hx Glaucoma, Hx Macular Degeneration, Hx Vision Problem Denies: Hx Eye Injury, Hx Eye Prosthesis, Hx Legally Blind Neurological History: Denies: Hx Dementia Infectious Disease History: Denies: Hx of Known/Suspected MRSA, Traveled Outside the [place] in Last 30 Days - Family History Known Family History: Positive: Hypertension - Social History Alcohol Use: None Substance Use Type: Reports: Prescribed Smoking Status (MU): Former Smoker Type: Cigarettes Review of Systems Positive: Other Positive: Other - small skin tear at right LE (has dressing) and multiple ecchymosis areas in bilateral UE Neurological: Other - dizziness All Other Systems Reviewed And Are Negative: Yes Physical Exam Triage Information Reviewed: Yes Vital Signs On Initial Exam: Initial Vitals Temp Pulse Resp BP Pulse Ox 97.3 F 87 18 96/60 89 06/16/17 01:10 06/16/17 01:10 06/16/17 01:10 06/16/17 01:10 06/16/17 01:10 Vital Signs Reviewed: Yes Appearance: Positive: Well-Appearing, No Pain Distress Skin: Positive: Warm, Dry, Other - 3cm scabbed over area on R [place] with surrounding erythema, 1cm skin tear on plantar surface of R foot, 2 cm blister on L monatgue Head/Face: Positive: Normal Head/Face Inspection Eyes: Positive: EOMI, CONTRERAS ENT: Positive: Normal ENT inspection Neck: Positive: Supple, Nontender Respiratory/Lung Sounds: Positive: Clear to Auscultation, Breath Sounds Present Cardiovascular: Positive: RRR Abdomen Description: Positive: Nontender, Soft Bowel Sounds: Positive: Present Musculoskeletal: Positive: Normal, Strength/ROM Intact Neurological: Positive: Normal, Sensory/Motor Intact, Alert, Oriented to Person Place, Time, CN Intact II-III Psychiatric: Positive: Affect/Mood Appropriate - [place] Coma Scale Coma Scale Total: 15 Diagnostics - Vital Signs Vital Signs Temp Pulse Resp BP Pulse Ox 06/16/17 05:00 89 14 97 06/16/17 04:30 83 13 104/66 98 06/16/17 04:00 84 12 101/58 98 06/16/17 03:30 86 13 110/57 98 06/16/17 03:00 83 14 112/64 99 06/16/17 02:30 83 14 107/68 98 06/16/17 02:00 84 14 99/50 100 06/16/17 01:43 85 06/16/17 01:30 91 16 102/64 97 06/16/17 01:17 88 96/60 88 06/16/17 01:10 97.3 F 87 18 96/60 89 - Laboratory Lab Results: Lab Results 06/16/17 06/16/17 06/16/17 Range/Units 01:25 01:25 01:25 WBC (3.5-10.8) 10^3/ul RBC (4.0-5.4) 10^6/ul Hgb (12.0-16.0) g/dl Hct (35-47) % MCV (80-97) fL MCH (27-31) pg MCHC (31-36) g/dl RDW (10.5-15) % Plt Count (150-450) 10^3/ul MPV (7.4-10.4) um3 Neut % (Auto) (38-83) % Lymph % (Auto) (25-47) % Coles % (Auto) (1-9) % Eos % (Auto) (0-6) % Baso % (Auto) (0-2) % Absolute Neuts (auto) (1.5-7.7) 10^3/ul Absolute Lymphs (auto) (1.0-4.8) 10^3/ul Absolute Monos (auto) (0-0.8) 10^3/ul Absolute Eos (auto) (0-0.6) 10^3/ul Absolute Basos (auto) (0-0.2) 10^3/ul Absolute Nucleated RBC 10^3/ul Nucleated RBC % INR (Anticoag Therapy) 1.55 H (0.89-1.11) APTT 38.3 H (26.0-36.3) seconds Sodium 141 (133-145) mmol/L Potassium 3.9 (3.5-5.0) mmol/L Chloride 101 (101-111) mmol/L Carbon Dioxide 36 H (22-32) mmol/L Anion Gap 4 (2-11) mmol/L BUN 31 H (6-24) mg/dL Creatinine 1.14 H (0.51-0.95) mg/dL Est GFR ( Amer) 59.6 (>60) Est GFR (Non-Af Amer) 46.3 (>60) BUN/Creatinine Ratio 27.2 H (8-20) Glucose 107 H (70-100) mg/dL Lactic Acid (0.5-2.0) mmol/L Calcium 8.4 L (8.6-10.3) mg/dL Magnesium 2.0 (1.9-2.7) mg/dL Total Bilirubin 0.30 (0.2-1.0) mg/dL AST 17 (13-39) U/L ALT 12 (7-52) U/L Alkaline Phosphatase 60 (34-104) U/L Total Creatine Kinase 20 (10-223) U/L CK-MB (CK-2) 2.5 (0.6-6.3) ng/mL Troponin I 0.02 (<0.04) ng/mL C-Reactive Protein 30.95 H (< 5.00) mg/L B-Natriuretic Peptide 212 H ( - 100) pg/mL Total Protein 5.7 L (6.4-8.9) g/dL Albumin 2.8 L (3.2-5.2) g/dL Globulin 2.9 (2-4) g/dL Albumin/Globulin Ratio 1.0 (1-3) Lipase 42 (11.0-82.0) U/L TSH 8.93 H (0.34-5.60) mcIU/mL Valproic Acid 83.0 (50-100) mcg/mL 06/16/17 06/16/17 Range/Units 01:25 01:25 WBC 7.2 (3.5-10.8) 10^3/ul RBC 3.37 L (4.0-5.4) 10^6/ul Hgb 10.8 L (12.0-16.0) g/dl Hct 33 L (35-47) % MCV 97 (80-97) fL MCH 32 H (27-31) pg MCHC 33 (31-36) g/dl RDW 16 H (10.5-15) % Plt Count 120 L (150-450) 10^3/ul MPV 8 (7.4-10.4) um3 Neut % (Auto) 76.1 (38-83) % Lymph % (Auto) 13.9 L (25-47) % Coles % (Auto) 8.9 (1-9) % Eos % (Auto) 0.7 (0-6) % Baso % (Auto) 0.4 (0-2) % Absolute Neuts (auto) 5.5 (1.5-7.7) 10^3/ul Absolute Lymphs (auto) 1.0 (1.0-4.8) 10^3/ul Absolute Monos (auto) 0.6 (0-0.8) 10^3/ul Absolute Eos (auto) 0 (0-0.6) 10^3/ul Absolute Basos (auto) 0 (0-0.2) 10^3/ul Absolute Nucleated RBC 0.01 10^3/ul Nucleated RBC % 0.1 INR (Anticoag Therapy) (0.89-1.11) APTT (26.0-36.3) seconds Sodium (133-145) mmol/L Potassium (3.5-5.0) mmol/L Chloride (101-111) mmol/L Carbon Dioxide (22-32) mmol/L Anion Gap (2-11) mmol/L BUN (6-24) mg/dL Creatinine (0.51-0.95) mg/dL Est GFR ( Amer) (>60) Est GFR (Non-Af Amer) (>60) BUN/Creatinine Ratio (8-20) Glucose (70-100) mg/dL Lactic Acid 1.6 (0.5-2.0) mmol/L Calcium (8.6-10.3) mg/dL Magnesium (1.9-2.7) mg/dL Total Bilirubin (0.2-1.0) mg/dL AST (13-39) U/L ALT (7-52) U/L Alkaline Phosphatase (34-104) U/L Total Creatine Kinase (10-223) U/L CK-MB (CK-2) (0.6-6.3) ng/mL Troponin I (<0.04) ng/mL C-Reactive Protein (< 5.00) mg/L B-Natriuretic Peptide ( - 100) pg/mL Total Protein (6.4-8.9) g/dL Albumin (3.2-5.2) g/dL Globulin (2-4) g/dL Albumin/Globulin Ratio (1-3) Lipase (11.0-82.0) U/L TSH (0.34-5.60) mcIU/mL Valproic Acid (50-100) mcg/mL Result Diagrams: 06/16/17 01:25 06/16/17 01:25 Lab Statement: Any lab studies that have been ordered have been reviewed, and results considered in the medical decision making process. - Radiology CXR Radiology Interpretation Completed By: Radiologist - Pending official interpretation from radiologist. See [employer]. - EKG 0127 Cardiac Rate: NL - 89 bpm EKG Rhythm: Atrial Fibrillation ST Segment: Normal Ectopy: None Re-Evaluation - Re-Evaluation First Eval Re-Evaluation Time: 06:46 Comment: Discussed with pt about results. Pt is asking for more pain medication. 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 The patient rates the pain 0/10 in severity. Symptoms aggravated by nothing. Symptoms alleviated by nothing. Patient reports small skin tear at right LE (has dressing) and multiple ecchymosis areas in bilateral UE. EKG reveals aFib at 89 bpm, normal ST, and no ectopy. In the ED course, pt was given fluids and dressing was put on her wounds. Medications reviewed. Allergies noted. Consulted Dr. Car [id number] who accepts pt for admission. Pt will be admitted. Pt is agreeable with this plan. ADMIT HOSPITALIST - Diagnoses Provider Diagnoses: Syncope, Hypotension - Provider Notifications Discussed Care Of Patient With: Jesu Car Time Discussed With Above Provider: 06:44 Instructed by Provider To: Other - Consulted Dr. Car who accepts pt for admission. Discharge - Discharge Plan Condition: Stable Disposition: ADMITTED TO [facility] Referrals: Melo Damon DO [Primary Care Provider] - The documentation as recorded by the Romie english Nikita accurately reflects the service I personally performed and the decisions made by me, Rohit Velez MD.
--- NOTE | 2017-06-16 08:40 | RAD ---
INDICATION: Syncope COMPARISON: April 03, 2017 TECHNIQUE: An AP portable view obtained at 0208 hours is submitted. FINDINGS: Bones/Soft Tissues: There are no acute bony findings. Cardiomediastinal: The cardiomediastinal silhouette is normal. Lungs: There is mild bibasilar atelectasis. There may be a developing left basilar infiltrate. There is no focal consolidation.. Pleura: There are no pleural effusions. Other: Chronic elevation right hemidiaphragm IMPRESSION: BASILAR ATELECTASIS. SUSPECT DEVELOPING LEFT BASAL INFILTRATE. SUGGEST FOLLOW-UP.
[2017-06-16] MEDS ORDERED: Magnesium Hydroxide LIQ* 30 ML UDC PO PRN (10:51)
[2017-06-16] MEDS ORDERED: Al Hydrox/Mg Hydrox/Simet LIQ* 30 ML UDC PO PRN (10:58)
[2017-06-16] MEDS ORDERED: Bumetanide TAB* 1 MG PO SCH ×2 (11:00→11:15)
[2017-06-16] MEDS ORDERED: UMECLIDIN MDI INH SCH (11:00)
[2017-06-16] MEDS: Mometasone/Formoter 200/5 MDI INH SCH ×2 (11:36→21:38)
[2017-06-16] MEDS ORDERED: Spiriva Inhaler DEVICE* 1 EACH DEVICE INH ONE (12:00)
[2017-06-16] MEDS: Divalproex DR TAB(*) 500 MG PO SCH (12:17)
[2017-06-16] MEDS: Potassium Chlor TAB* 10 MEQ TAB.ER PO SCH (12:19)
[2017-06-16] MEDS: LORazepam TAB(*) 0.5 MG PO PRN ×2 (12:19→22:07)
[2017-06-16] MEDS: Aspirin Low Dose CHEW TAB* 81 MG PO SCH (12:19)
[2017-06-16] MEDS: Omeprazole CAP* 20 MG PO SCH (12:19)
[2017-06-16] MEDS: Rivaroxaban TAB(*) 20 MG TAB PO SCH (12:20)
[2017-06-16] MEDS: traMADol TAB* 50 MG PO PRN (12:20)
[2017-06-16] MEDS: Carvedilol TAB* 3.125 MG PO SCH ×2 (12:20→22:06)
[2017-06-16] MEDS: Tiotropium CAP.INH* CAP.INH/18 MCG (USE ORDER SET !) INH SCH (12:20)
[2017-06-16] MEDS: Fluticasone NASAL SPRAY 50MCG* 16 gm SPRAY BTL BOTH NARES SCH ×2 (12:21→22:13)
--- NOTE | 2017-06-16 14:54 | HP ---
CC: Dr. Melo Damon HISTORY AND PHYSICAL: DATE OF ADMISSION: 06/16/17 PRIMARY CARE PHYSICIAN: Dr. Melo Damon. CHIEF COMPLAINT: "I sat on the floor." HISTORY OF PRESENT ILLNESS: History obtained from Ms. Mayers, who seems to have some mild cognitive impairment, the patient's chart, as well as Cathie Carrasco at [facility]. Ms. Mayers is a 76-year-old female with past medical history of hypertension; AFib, on Xarelto; hyperlipidemia; history of PE; asthma; bipolar I disorder; hypothyroidism, who presents to the hospital after she was sent in from [facility] due to possible fall and some concern for seizure. As per the patient, she says that she is here in the hospital because she sat on the floor of [facility]. She states that last night she got out of the bed to go to the bathroom, she was walking with her walker, and apparently felt weak and sat down on the floor. She states that she did not fall, she did not hit her head. She denies any preceding chest pain, shortness of breath, or dizziness, but she reports that because of this, EMS was called then she was brought to the hospital. She said she has had some changes in her blood pressure medications recently and thinks this is to blame. As per staff at [facility], the patient was found on the floor with her eyes rolled back in her head, unresponsive, and shaking. They were concerned for possible seizure. EMS was called and they state that the patient woke up just before EMS arrived and they state that at first, she did not seem to know what was going on and where she was, but they sat her up and then she was alert and oriented again. The patient did not lose control of her bladder or bowels. She has been having a few falls recently. She was seen here in the emergency room after a fall and she subsequently developed cellulitis from her skin tear in the right lower extremity. This has been treated with antibiotics, which she is currently off. As per staff at [facility], her wound has been improving. Apparently, the patient had decrease in her Bumex by Dr. Damon relatively recently. I think it seems that he saw her on 06/10/17 and decreased it at that visit. However, the patient's edema worsened and since then, she has been increased back to b.i.d. dosing. Ms. Carrasco also states that they have attempted to decrease her bipolar medications in the past and she has become manic and has since improved again since they were readjusted. Of note, the patient had a recent echocardiogram just within the past month that showed some LVH with normal ejection fraction. Ms. Carrasco also stated that the patient has been very fatigued lately and actually fell asleep in the doctor's office at the last visit, was apparently ordered to have another sleep study, but has been on CPAP in the past and cannot tolerate it. PAST MEDICAL HISTORY: CAD, AFib, hyperlipidemia, history of PE, hypertension, asthma, bipolar I disorder, hypothyroidism. PAST SURGICAL HISTORY: Right TKA, appendectomy. HOME MEDICATIONS: 1. Tramadol 50 mg by mouth 2 times daily as needed for pain. 2. Incruse Ellipta 62.5 mcg inhaled daily. 3. Xarelto 20 mg by mouth daily. 4. Primidone 150 mg by mouth at bedtime. 5. Potassium chloride 10 mEq by mouth daily. 6. Omeprazole 20 mg by mouth daily. 7. Singulair 10 mg by mouth at bedtime. 8. Menthol 7 mg every 4 hours as needed for sore throat. 9. Milk of magnesia 30 mL by mouth every 6 hours as needed for constipation. 10. Latuda 60 mg by mouth at bedtime. 11. Lisinopril 20 mg by mouth daily. 12. Levothyroxine 150 mcg by mouth daily. 13. Latanoprost 1 drop in both eyes at bedtime. 14. Lactic acid 12% topical 2 times daily. 15. Lorazepam 0.5 mg by mouth 3 times daily as needed for anxiety. 16. Gabapentin 200 mg by mouth 3 times daily. 17. Flonase 1 spray in both nares 2 times daily. 18. Lexapro 5 mg by mouth at bedtime. 19. Dorzolamide 1 drop in both eyes 2 times daily. 20. Depakote 500 mg by mouth every morning and 750 mg by mouth at bedtime. 21. Coreg 25 mg by mouth 2 times daily. 22. Bumex 1 mg by mouth 2 times daily. 23. Symbicort 2 puffs inhaled times daily. 24. Brimonidine 1 drop ophthalmic 2 times daily. 25. Bismuth subsalicylate 30 mL by mouth daily as needed for diarrhea. 26. Atorvastatin 10 mg by mouth at bedtime. 27. Aspirin 81 mg by mouth daily. 28. Maalox 15 mL by mouth every 4 hours as needed for indigestion. 29. Tylenol 650 mg by mouth every 4 hours as needed for pain. ALLERGIES: To CODEINE. FAMILY HISTORY: Significant for mother who of old age. 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 No current drug use. REVIEW OF SYSTEMS: A 12-point review of systems is negative except for that is noted in the HPI. PHYSICAL EXAMINATION GENERAL: The patient is an elderly female, lying in bed, initially asleep and lethargic, but eventually awakened. VITAL SIGNS: On admission, temperature 97.3; heart rate of 87; respiratory rate of 18; O2 saturation 89%, subsequently 99% on 2 L; blood pressure 96/60. HEENT: Head: Normocephalic, atraumatic. Eyes: Pupils are equal, round, and reactive to light and accommodation. Anicteric sclerae. ENT: Dry mucous membranes. No cervical adenopathy. LUNGS: Somewhat diminished in the bases. No wheezing appreciated. CARDIOVASCULAR: Irregularly irregular. Normal rate. No murmurs, gallops, or rubs. ABDOMEN: Obese, soft, nontender, and nondistended. Bowel sounds positive. EXTREMITIES: The patient with some mild lower extremity edema. Wounds dressed. Right lower extremity wound with some slight surrounding erythema, mild warmth, significant hematoma, some bloody discharge from the wound. NEUROLOGIC: The patient is alert and oriented to self, place, year, cannot tell me the month. No focal neurological deficits. DIAGNOSTIC STUDIES/LAB DATA: White blood cell count of 7.2, hematocrit of 33, and platelets of 120. INR of 1.55. Sodium 141, potassium 3.9, chloride of 101 , carbon dioxide of 36, BUN of 31, creatinine of 1.14, glucose of 107, lactic acid 1.6, calcium 8.4. LFTs are within normal limits. Troponin of 0.02. CRP of 30. B- natriuretic peptide of 212. TSH of 8.93. Valproic acid level 83. UA without any signs of infection. Chest pain x-ray personally reviewed shows poor inspiratory effort, atelectasis bilaterally, more haziness in the left in lower lobe. EKG personally reviewed shows AFib. No ischemic changes. ASSESSMENT AND PLAN: Fall, possible syncope, questionable seizure activity in a 76- year-old female with past medical history of hypertension, hyperlipidemia , atrial fibrillation, bipolar, asthma, hypothyroidism. 1. Fall, possible syncope. Etiology of the patient's fall is unclear as history surrounding it is a bit vague. She was hypotensive on admission as per Dr. Velez in the ED, she initially responded to IV fluids and then pressures drifted down again. The patient is too weak to stand for orthostatics at this time. The hypotension certainly could a reason for her fall especially with the amount of blood pressure medications/diuretics she is on. Seizure seems unlikely but the patient is on primidone at home. She cannot report to me any history of seizures neither can Ms. Carrasco, but we will get an EEG to rule out any underlying epileptic activity. For now, I will hold her lisinopril and some of her centrally-acting medications. I will decrease her Bumex back to 1 mg daily for now and decrease her Coreg as well. We will monitor her blood pressures closely. Her TSH is a bit elevated, I will increase her Synthroid from 150 to 162.5 mcg daily. We will check ammonia. The patient could have some underlying sleep apnea, which could contribute to sleepiness which seems to be ongoing as an outpatient. We will check an overnight pulse oximetry while she is here in the hospital. Get a PT evaluation also. Infection does not seem obvious at this time. We will check procalcitonin as she does seem to have some changes on her chest x-ray, could potentially have an underlying pneumonia. We will hold on antibiotics for the time being. 2. Lower extremity wounds. As per Ms. Carrasco, her wounds have been improving, does seem to have significant hematoma at the site of her previous cellulitis. I do not think she has an active infection, but I will get a Wound Care consult to evaluate and see if any additional dressing changes need to be made. 3. Atrial fibrillation. Continue Xarelto. We will decrease Coreg to 3.125 mg by mouth 2 times daily for rate control. 4. Hypothyroidism. Increased Synthroid as above. 5. Bipolar disorder. Continue the patient's home Latuda, Depakote. 6. DVT prophylaxis. Xarelto. 7. The patient is a do not resuscitate. TIME SPENT: Total time spent on this admission was 60 minutes, with over half the time spent [id number] with the patient in counseling and coordinating care. [id number]/[facility] #: [id number] MTDD
[2017-06-16] MEDS: Divalproex DR TAB(*) 250 MG PO SCH (22:04)
[2017-06-16] MEDS: Lurasidone(*) 60 MG TAB PO SCH (22:06)
[2017-06-16] MEDS: Atorvastatin* 10 MG TAB PO SCH (22:06)
[2017-06-16] MEDS: Montelukast Sodium TAB* 10 MG PO SCH (22:07)
[2017-06-16] MEDS: Primidone TAB(*) 50 MG PO SCH (22:07)
[2017-06-16] MEDS: CMCS Escitalopram (NF) 5 MG TAB PO SCH (22:10)
[2017-06-16] MEDS: Latanoprost 0.005%* 2.5 ml BTL BOTH EYES SCH (22:14)
[2017-06-16] MEDS: DORZOLAMIDE 2% BOTH EYES SCH (22:16)
[2017-06-16] MEDS: OPTH BOTH EYES SCH (22:16)
[2017-06-16] MEDS: LACTIC ACID TOPICAL SCH (22:16)
--- NOTE | 2017-06-16 23:50 | CONS ---
CC: [facility]; Dr. Melo Damon, [facility] * CONSULTATION REPORT: DATE OF CONSULT: 06/16/17 REFERRING PROVIDER: Dr. Jesu Car. REASON FOR CONSULTATION: Recent fall with laceration and contusion of the right montague. HISTORY OF PRESENT ILLNESS: Ms. Mayers is a 76-year-old woman who apparently lives at the [facility] near the [facility]. At present, she is a poor historian and the history is obtained mainly from Dr. Car's history and physical as well as discussion with Dr. Car as well. By review of her medical record, she had apparently fallen and was seen in the emergency room several weeks ago with a laceration/abrasion on the right montague. At that time, she had a right lower leg x-ray performed which showed no evidence of fracture and appeared she had had a right knee replacement in the past. Apparently, sutures were placed and she was seen back in the emergency room; however, 4 days later with some right lower extremity pain and some erythema. She had a normal white blood cell count at that time. She was started on Keflex and sutures were removed and no infectious etiology was noted. She returns today after apparent fall and was admitted for a syncopal evaluation. During the course of evaluation, she was noted to have a large scabbed area in the right montague with some swelling as well as a recent healed laceration and surgical consultation was obtained. Unable to determine from the patient whether she is having discomfort, she has had fevers or drainage. PAST MEDICAL HISTORY: 1. Coronary artery disease. 2. Atrial fibrillation. 3. Hyperlipidemia. 4. History of pulmonary embolism. 5. Hypertension. 6. Asthma. 7. Bipolar disorder. 8. Hypothyroidism. PAST SURGICAL HISTORY: 1. Right total knee replacement. 2. Appendectomy. MEDICATIONS: Include: 1. Ellipta. 2. Xarelto 20 mg daily. 3. Primidone. 4. Omeprazole. 5. Singulair. 6. Latuda 60 mg at bedtime. 7. Lisinopril 20 mg daily. 8. Levothyroxine 150 mcg daily. 9. Gabapentin 200 mg t.i.d. 10. Flonase. 11. Lexapro. 12. Depakote 500 mg in the morning and 750 mg at bedtime. 13. Aspirin 81 mg daily. ALLERGIES: She is allergic to CODEINE. FAMILY HISTORY: I am not unable to obtain adequate or reliable history concerning her family and her living arrangements. SOCIAL HISTORY: Socially, apparently is a former smoker and has had a history of heavy drinking. PHYSICAL EXAM: She is an elderly female, lying in bed, appears to be somewhat lethargic and was initially asleep, but I did awaken her. She will answer simple questions, but is a very poor historian, is not certain where or why she is here. In her right lower extremity, she has a knee replacement anterior incision, which is well healed. There is no swelling in the area. In the mid montague area, there is a vertical healing laceration of approximately 8 to 9 cm without evidence of redness or drainage. Just inferior to this, there is an area of black eschar of about 3 x 4 cm with some mild swelling. There is no drainage, cellulitis, abscess, or purulence noted. She also has very superficial skin abrasion over the right heel area. There is no swelling in the right foot. There is also some bruising and ecchymosis around the knee, montague, and ankle areas that appear to have different stages of recovery consistent with recent falls at different times. IMPRESSION: Abrasion/contusion of the right montague with a history of laceration, which seems to be healing well. The area of the apparent abrasion/contusion has an area of dry eschar without evidence of purulence, redness, or cellulitis. There is no drainage. At this point, there seems to be a biologic dressing in itself without underlying infection. I would not proceed with debridement at this point. She is also on Xarelto, which we need to be cautious with concerning debridement of this area. For now, I will continue with a dry dressing, observation, and protection. She could be seen in followup in the Wound Center and if signs of infection or abscess develops, this will require more urgent debridement. Thank you for the consultation. We will follow her with you. [id number]/[facility] [place] #: [id number] PAUL
[2017-06-17 04:53] LABS: Calcium 8.5 mg/dL (8.6-10.3); EGFR African American 81.4 (>60); EGFR Non-African American 63.3 (>60); Potassium 4.6 mmol/L (3.5-5.0)
[2017-06-17] MEDS: Levothyroxine TAB* 150 MCG TAB PO SCH (05:57)
[2017-06-17] MEDS: Levothyroxine TAB* 25 MCG TAB PO SCH (05:58)
[2017-06-17] MEDS: Acetaminophen TAB* 325 MG PO PRN ×2 (05:58→20:22)
[2017-06-17] MEDS: Tiotropium CAP.INH* CAP.INH/18 MCG (USE ORDER SET !) INH SCH (08:39)
[2017-06-17] MEDS: Mometasone/Formoter 200/5 MDI INH SCH ×2 (08:39→21:19)
[2017-06-17] MEDS: Potassium Chlor TAB* 10 MEQ TAB.ER PO SCH (10:02)
[2017-06-17] MEDS: Divalproex DR TAB(*) 500 MG PO SCH (10:02)
[2017-06-17] MEDS: Bumetanide TAB* 1 MG PO SCH (10:02)
[2017-06-17] MEDS: Omeprazole CAP* 20 MG PO SCH (10:02)
[2017-06-17] MEDS: Carvedilol TAB* 3.125 MG PO SCH ×2 (10:02→20:22)
[2017-06-17] MEDS: Rivaroxaban TAB(*) 20 MG TAB PO SCH (10:02)
[2017-06-17] MEDS: Aspirin Low Dose CHEW TAB* 81 MG PO SCH (10:02)
[2017-06-17] MEDS: DORZOLAMIDE 2% BOTH EYES SCH ×2 (10:28→20:32)
[2017-06-17] MEDS: OPTH BOTH EYES SCH ×2 (10:28→20:32)
[2017-06-17] MEDS: Fluticasone NASAL SPRAY 50MCG* 16 gm SPRAY BTL BOTH NARES SCH ×2 (10:50→20:30)
[2017-06-17] MEDS: Mupirocin 2% OINT* TUBE TOPICAL SCH ×2 (10:51→21:55)
[2017-06-17] MEDS: LACTIC ACID TOPICAL SCH ×2 (10:52→20:32)
--- NOTE | 2017-06-17 18:40 | PN ---
Subjective Date of Service: 06/17/17 Interval History: Patient continues to be confused, Alert and oriented x2 and a poor historian. Patient denies any new complaints of dizziness, SOB, or CP overnight. Patient did not report being symptomatic with standing. Records obtained from PCP which were not elucidating. Patient reports BM after being started on lactulose but states it is less than when she was at home. Patient started on 2L O2 NC due to hypoxia. Will monitor pulse oximetry overnight again on O2. Family History: Unchanged from Admission Social History: Unchanged from Admission Past Medical History: Unchanged from Admission Objective Active Medications: Acetaminophen (Tylenol Tab*) 650 mg PO Q4H PRN PRN Reason: FEVER/PAIN Last Admin: 06/17/17 05:58 Dose: 650 mg Al Hydrox/Mg Hydrox/Simethicone (Maalox Plus*) 15 ml PO Q4H PRN PRN Reason: INDIGESTION Last Admin: 06/17/17 06:00 Dose: 15 ml Aspirin (Aspirin Low Dose Tab*) 81 mg PO DAILY [facility] Last Admin: 06/17/17 10:02 Dose: 81 mg Atorvastatin Calcium (Lipitor*) 10 mg PO BEDTIME [facility] Last Admin: 06/16/17 22:06 Dose: 10 mg Brimonidine Tartrate (Alphagan 0.2%) 1 drop RIGHT EYE BID [facility] Last Admin: 06/17/17 10:04 Dose: 1 drop Bumetanide (Bumex Tab*) 1 mg PO DAILY [facility] Last Admin: 06/17/17 10:02 Dose: 1 mg Carvedilol (Coreg Tab*) 3.125 mg PO BID [facility] Last Admin: 06/17/17 10:02 Dose: 3.125 mg Divalproex Sodium (Depakote Dr Tab(*)) 500 mg PO QAM [facility] Last Admin: 06/17/17 10:02 Dose: 500 mg Divalproex Sodium (Depakote Dr Tab(*)) 750 mg PO BEDTIME [facility] Last Admin: 06/16/17 22:04 Dose: 750 mg Dorzolamide HCl (Trusopt 2% Opth (Nf)) 1 drop BOTH EYES BID [facility] PRN Reason: Protocol Last Admin: 06/17/17 10:28 Dose: Not Given Escitalopram Oxalate (Lexapro (Nf)) 5 mg PO BEDTIME [facility] Last Admin: 06/16/17 22:10 Dose: 5 mg Fluticasone Propionate (Flonase Nasal [place] 50mcg*) 1 spray BOTH NARES BID [facility] Last Admin: 06/17/17 10:50 Dose: 1 spray Lactic Acid (Lac-Hydrin 12% (Nf)) 1 applic TOPICAL BID [facility] Last Admin: 06/17/17 10:52 Dose: Not Given Lactulose (Lactulose*) 30 ml PO TID [facility] Last Admin: 06/17/17 15:30 Dose: 30 ml Latanoprost (Xalatan 0.005%*) 1 drop BOTH EYES BEDTIME [facility] Last Admin: 06/16/17 22:14 Dose: 1 drop Levothyroxine Sodium (Synthroid Tab*) 150 mcg PO 0600 [facility] Last Admin: 06/17/17 05:57 Dose: 150 mcg Levothyroxine Sodium (Synthroid Tab*) 12.5 mcg PO DAILY@0600 [facility] Last Admin: 06/17/17 05:58 Dose: 12.5 mcg Lorazepam (Ativan Tab(*)) 0.5 mg PO BID PRN PRN Reason: ANXIETY Last Admin: 06/16/17 22:07 Dose: 0.5 mg Lurasidone HCl (Latuda) 60 mg PO BEDTIME [facility] Last Admin: 06/16/17 22:06 Dose: 60 mg Magnesium Hydroxide (Milk Of Magnesia Liq*) 30 ml PO Q6H PRN PRN Reason: INDIGESTION Last Admin: 06/17/17 06:00 Dose: 30 ml Mometasone Furoate/Formoterol Fumar (Dulera 200/5 Mdi*) 2 puff INH BID [facility] PRN Reason: Protocol Last Admin: 06/17/17 08:39 Dose: 2 puff Montelukast Sodium (Singulair Tab*) 10 mg PO BEDTIME [facility] Last Admin: 06/16/17 22:07 Dose: 10 mg Mupirocin (Bactroban 2 % Oint*) 1 applic TOPICAL BID [facility] Last Admin: 06/17/17 10:51 Dose: 1 applic Omeprazole (Prilosec Cap*) 20 mg PO DAILY [facility] Last Admin: 06/17/17 10:02 Dose: 20 mg Potassium Chloride (Klor Con Er Tab*) 10 meq PO DAILY [facility] Last Admin: 06/17/17 10:02 Dose: 10 meq Primidone (Mysoline Tab(*)) 150 mg PO BEDTIME [facility] Last Admin: 06/16/17 22:07 Dose: 150 mg Rivaroxaban (Xarelto (*)) 20 mg PO DAILY [facility] Last Admin: 06/17/17 10:02 Dose: 20 mg Tiotropium [place] (Spiriva Cap.Inh*) 1 cap INH DAILY [facility] Last Admin: 06/17/17 08:39 Dose: 1 cap Tramadol HCl (Ultram*) 50 mg PO BID PRN PRN Reason: PAIN Last Admin: 06/16/17 12:20 Dose: 50 mg Vital Signs 06/16/17 06/16/17 06/16/17 20:00 21:06 22:07 Temperature 98.0 F Pulse Rate 62 Respiratory 18 18 18 Rate Blood Pressure 151/110 (mmHg) O2 Sat by Pulse 100 Oximetry 06/17/17 06/17/17 06/17/17 00:07 00:27 03:22 Temperature 98.8 F 98.6 F Pulse Rate 104 93 Respiratory 18 20 16 Rate Blood Pressure 154/95 154/74 (mmHg) O2 Sat by Pulse 91 89 Oximetry 06/17/17 06/17/17 06/17/17 07:22 08:00 08:41 Temperature 98.5 F Pulse Rate 111 100 Respiratory 20 18 14 Rate Blood Pressure 145/63 (mmHg) O2 Sat by Pulse 97 96 Oximetry 06/17/17 06/17/17 06/17/17 11:17 11:20 15:28 Temperature 98.9 F Pulse Rate 249 106 100 Respiratory 18 Rate Blood Pressure 85/60 107/55 117/73 (mmHg) O2 Sat by Pulse 83 Oximetry 06/17/17 06/17/17 06/17/17 15:51 16:27 16:30 Temperature Pulse Rate 126 165 Respiratory 16 Rate Blood Pressure 113/41 118/78 (mmHg) O2 Sat by Pulse 97 Oximetry 06/17/17 16:35 Temperature Pulse Rate 221 Respiratory Rate Blood Pressure 99/65 (mmHg) O2 Sat by Pulse Oximetry Oxygen Devices in Use Now: - - 2L Appearance: Patient is a 76yo female who appears stated age and is sitting in the bed in NAD. Eyes: No Scleral Icterus, PERRLA Ears/Nose/Mouth/Throat: NL Teeth, Lips, Gums, Clear Oropharnyx, Mucous Membranes Moist Neck: NL Appearance and Movements; NL JVP, Trachea Midline Respiratory: Symmetrical Chest Expansion and Respiratory Effort, Clear to Auscultation Cardiovascular: NL Sounds; No Murmurs; No JVD, No Edema, - - Irregularly irregular rhythm rate around 100. Abdominal: NL Sounds; No Tenderness; No Distention, No Hepatosplenomegaly Lymphatic: No Cervical Adenopathy Skin: No Nodules or Sclerosis, - Neurological: NL Muscle Strength and Tone, - - Alert and oriented x2. Significant tremor in hands and head worse on left than right. Worse with intention, no micrographia. Result Diagrams: 06/16/17 01:25 06/17/17 04:13 Additional Lab and Data: Lab Results 06/16/17 06/16/17 06/16/17 Range/Units 01:25 01:25 01:25 WBC (3.5-10.8) 10^3/ul RBC (4.0-5.4) 10^6/ul Hgb (12.0-16.0) g/dl Hct (35-47) % MCV (80-97) fL MCH (27-31) pg MCHC (31-36) g/dl RDW (10.5-15) % Plt Count (150-450) 10^3/ul MPV (7.4-10.4) um3 Neut % (Auto) (38-83) % Lymph % (Auto) (25-47) % [place] % (Auto) (1-9) % Eos % (Auto) (0-6) % Baso % (Auto) (0-2) % Absolute Neuts (auto) (1.5-7.7) 10^3/ul Absolute Lymphs (auto) (1.0-4.8) 10^3/ul Absolute Monos (auto) (0-0.8) 10^3/ul Absolute Eos (auto) (0-0.6) 10^3/ul Absolute Basos (auto) (0-0.2) 10^3/ul Absolute Nucleated RBC 10^3/ul Nucleated RBC % INR (Anticoag Therapy) 1.55 H (0.89-1.11) APTT 38.3 H (26.0-36.3) seconds Sodium 141 (133-145) mmol/L Potassium 3.9 (3.5-5.0) mmol/L Chloride 101 (101-111) mmol/L Carbon Dioxide 36 H (22-32) mmol/L Anion Gap 4 (2-11) mmol/L BUN 31 H (6-24) mg/dL Creatinine 1.14 H (0.51-0.95) mg/dL Est GFR ( Amer) 59.6 (>60) Est GFR (Non-Af Amer) 46.3 (>60) BUN/Creatinine Ratio 27.2 H (8-20) Glucose 107 H (70-100) mg/dL Lactic Acid (0.5-2.0) mmol/L Calcium 8.4 L (8.6-10.3) mg/dL Magnesium 2.0 (1.9-2.7) mg/dL Total Bilirubin 0.30 (0.2-1.0) mg/dL AST 17 (13-39) U/L ALT 12 (7-52) U/L Alkaline Phosphatase 60 (34-104) U/L Total Creatine Kinase 20 (10-223) U/L CK-MB (CK-2) 2.5 (0.6-6.3) ng/mL Troponin I 0.02 (<0.04) ng/mL C-Reactive Protein 30.95 H (< 5.00) mg/L B-Natriuretic Peptide 212 H ( - 100) pg/mL Total Protein 5.7 L (6.4-8.9) g/dL Albumin 2.8 L (3.2-5.2) g/dL Globulin 2.9 (2-4) g/dL Albumin/Globulin Ratio 1.0 (1-3) Lipase 42 (11.0-82.0) U/L TSH 8.93 H (0.34-5.60) mcIU/mL Valproic Acid 83.0 (50-100) mcg/mL 06/16/17 06/16/17 Range/Units 01:25 01:25 WBC 7.2 (3.5-10.8) 10^3/ul RBC 3.37 L (4.0-5.4) 10^6/ul Hgb 10.8 L (12.0-16.0) g/dl Hct 33 L (35-47) % MCV 97 (80-97) fL MCH 32 H (27-31) pg MCHC 33 (31-36) g/dl RDW 16 H (10.5-15) % Plt Count 120 L (150-450) 10^3/ul MPV 8 (7.4-10.4) um3 Neut % (Auto) 76.1 (38-83) % Lymph % (Auto) 13.9 L (25-47) % [place] % (Auto) 8.9 (1-9) % Eos % (Auto) 0.7 (0-6) % Baso % (Auto) 0.4 (0-2) % Absolute Neuts (auto) 5.5 (1.5-7.7) 10^3/ul Absolute Lymphs (auto) 1.0 (1.0-4.8) 10^3/ul Absolute Monos (auto) 0.6 (0-0.8) 10^3/ul Absolute Eos (auto) 0 (0-0.6) 10^3/ul Absolute Basos (auto) 0 (0-0.2) 10^3/ul Absolute Nucleated RBC 0.01 10^3/ul Nucleated RBC % 0.1 INR (Anticoag Therapy) (0.89-1.11) APTT (26.0-36.3) seconds Sodium (133-145) mmol/L Potassium (3.5-5.0) mmol/L Chloride (101-111) mmol/L Carbon Dioxide (22-32) mmol/L Anion Gap (2-11) mmol/L BUN (6-24) mg/dL Creatinine (0.51-0.95) mg/dL Est GFR ( Amer) (>60) Est GFR (Non-Af Amer) (>60) BUN/Creatinine Ratio (8-20) Glucose (70-100) mg/dL Lactic Acid 1.6 (0.5-2.0) mmol/L Calcium (8.6-10.3) mg/dL Magnesium (1.9-2.7) mg/dL Total Bilirubin (0.2-1.0) mg/dL AST (13-39) U/L ALT (7-52) U/L Alkaline Phosphatase (34-104) U/L Total Creatine Kinase (10-223) U/L CK-MB (CK-2) (0.6-6.3) ng/mL Troponin I (<0.04) ng/mL C-Reactive Protein (< 5.00) mg/L B-Natriuretic Peptide ( - 100) pg/mL Total Protein (6.4-8.9) g/dL Albumin (3.2-5.2) g/dL Globulin (2-4) g/dL Albumin/Globulin Ratio (1-3) Lipase (11.0-82.0) U/L TSH (0.34-5.60) mcIU/mL Valproic Acid (50-100) mcg/mL Assess/Plan/Problems-Billing Assessment: - Patient Problems (1) Syncope Current Visit: Yes Status: Acute Code(s): R55 - SYNCOPE AND COLLAPSE SNOMED Code(s): 493492706 Comment: Patient states she only "sat down" because she was weak. Staff states they saw epileptiform activity and eyes rolled back. Had another episode of arms shaking with maintained consiousness today with an episode of hypotension when sitting up witnessed by nurse. Pending EEG read. Orthostatic VS negative. Patient asymptomatic. (2) Altered mental status Current Visit: Yes Status: Acute Code(s): R41.82 - ALTERED MENTAL STATUS, UNSPECIFIED SNOMED Code(s): 501757891 Comment: Of unknown duration. Elevated Ammonia, valproic acid recently decreased precipitating manic episode. Started on lactulose with BM, will assess for change in mental state in morning. Consider Psych consult to change valproic acid to alternative therapy if sucessful. Will talk to PCP in morning about long-term evolution of AMS. (3) Hypertension Current Visit: Yes Status: Acute Code(s): I10 - ESSENTIAL (PRIMARY) HYPERTENSION SNOMED Code(s): 06135520 Comment: Patient currently normotensive with lisinopril held and half dose of Coreg and Bumex. Will continue medications at current doses and monitor. (4) Edema Current Visit: Yes Status: Acute Code(s): R60.9 - EDEMA, UNSPECIFIED SNOMED Code(s): 189164599 Comment: Mild, stable on once daily Bumex at this time. (5) Hyperlipidemia Current Visit: Yes Status: Acute Code(s): E78.5 - HYPERLIPIDEMIA, UNSPECIFIED SNOMED Code(s): 62172962 Comment: Continue statin (6) History of pulmonary embolism Current Visit: Yes Status: Acute Code(s): Z86.711 - PERSONAL HISTORY OF PULMONARY EMBOLISM SNOMED Code(s): 379150374 Comment: Continue Xarelto (7) Afib Current Visit: No Status: Acute Code(s): I48.91 - UNSPECIFIED ATRIAL FIBRILLATION SNOMED Code(s): 08061111 Comment: Rate above 100, will attempt to increase Coreg to home dose if BP will tolerate. (8) Bipolar disorder Current Visit: No Status: Acute Comment: Continue Latuda and Valproate (9) DVT prophylaxis Current Visit: Yes Status: Acute Code(s): RTT0700 - SNOMED Code(s): 636208751 Comment: Xarelto. Status and Disposition: Patient admitted inpatient, will discharge when medically able. Estimate 1-2 days.
[2017-06-17] MEDS: Atorvastatin* 10 MG TAB PO SCH (20:21)
[2017-06-17] MEDS: LORazepam TAB(*) 0.5 MG PO PRN (20:22)
[2017-06-17] MEDS: Divalproex DR TAB(*) 250 MG PO SCH (20:23)
[2017-06-17] MEDS: Montelukast Sodium TAB* 10 MG PO SCH (20:24)
[2017-06-17] MEDS: traMADol TAB* 50 MG PO PRN (20:24)
[2017-06-17] MEDS: Latanoprost 0.005%* 2.5 ml BTL BOTH EYES SCH (20:31)
[2017-06-17] MEDS: Primidone TAB(*) 50 MG PO SCH (20:32)
[2017-06-17] MEDS: CMCS Escitalopram (NF) 5 MG TAB PO SCH (20:32)
[2017-06-17] MEDS: Lurasidone(*) 60 MG TAB PO SCH (20:34)
--- NOTE | 2017-06-18 02:15 | EEG ---
ELECTROENCEPHALOGRAPHY: DATE OF STUDY: 06/16/17 - ROOM #432 LOCATION: The patient is an inpatient. ORDERING PHYSICIAN: Dr. Car. CLINICAL PROBLEM: This is a 76-year-old left-handed woman admitted on . She was found on the floor of her residence, but does not recall what happened. She had no warning signs prior to loss of consciousness. She has had these episodes in the past when her blood pressure medications are changed and they were recently changed. She reportedly had orthostatic vital signs attempted this morning and became dizzy and shaky. EEG is requested to evaluate for epileptiform abnormalities. MEDICATIONS: 1. Escitalopram. 2. Lipitor. 3. Coreg. 4. Xarelto. 5. Klor-Con. 6. Prilosec. 7. Dulera. 8. Depakote. 9. Aspirin 81 mg. 10. Bactroban. 11. Ultram. 12. Milk of magnesia. 13. Ativan. 14. Maalox. 15. Acetaminophen. 16. Bumex. 17. Synthroid. 18. Mysoline. 19. Singulair. 20. Latuda. 21. Xalatan. REPORT: The waking background showed appropriate organization with clearly defined anterior to posterior voltage and frequency gradients. There was a defined, but slow posterior dominant rhythm which was typically between 6 and 7 Hz. This was symmetrical and showed normal reactivity. Anteriorly, there was an expected pattern of lower voltage, irregular, mixed faster frequencies. There was excessive mixed frequency slowing present within the background especially in the midline region, which often contained delta range frequencies. Attenuation of the occipital rhythm accompanied drowsiness, but there were no well- developed sleep spindles to indicate the transition to sustain stage 2 sleep. Throughout the recording, there were no epileptiform discharges, focal features , paroxysmal features or significant interhemispheric asymmetries. CLINICAL IMPRESSION: This is an abnormal waking and drowsy EEG due to the presence of excessive slowing intermixed within the background and a slow posterior dominant rhythm. These findings are suggestive of a mild, nonspecific , diffuse encephalopathy. There are no epileptiform abnormalities. [id number]/[facility] #: [id number] [facility]
[2017-06-18 05:22] LABS: Hematocrit 32 % (35-47); Hemoglobin 10.8 g/dl (12.0-16.0); Mean Corpuscular HGB Conc 34 g/dl (31-36); Mean Corpuscular Hemoglobin 32 pg (27-31); Mean Corpuscular Volume 96 fL (80-97); Mean Platelet Volume 8 um3 (7.4-10.4); Red Blood Count 3.35 10^6/ul (4.0-5.4); Red Cell Distribution Width 16 % (10.5-15); White Blood Count 9.7 10^3/ul (3.5-10.8)
[2017-06-18 05:29] LABS: BUN/Creatinine Ratio 19.8 (8-20); Calcium 8.5 mg/dL (8.6-10.3); EGFR African American 82.5 (>60); EGFR Non-African American 64.2 (>60); Potassium 4.1 mmol/L (3.5-5.0)
[2017-06-18] MEDS: Levothyroxine TAB* 25 MCG TAB PO SCH (05:52)
[2017-06-18] MEDS: Levothyroxine TAB* 150 MCG TAB PO SCH (05:53)
[2017-06-18] MEDS: Acetaminophen TAB* 325 MG PO PRN (05:54)
[2017-06-18] MEDS: Mometasone/Formoter 200/5 MDI INH SCH ×2 (08:32→22:15)
[2017-06-18] MEDS: Tiotropium CAP.INH* CAP.INH/18 MCG (USE ORDER SET !) INH SCH (08:35)
[2017-06-18] MEDS: DORZOLAMIDE 2% BOTH EYES SCH ×2 (09:01→22:11)
[2017-06-18] MEDS: LACTIC ACID TOPICAL SCH ×2 (09:01→22:11)
[2017-06-18] MEDS: OPTH BOTH EYES SCH ×2 (09:01→22:11)
[2017-06-18] MEDS: Potassium Chlor TAB* 10 MEQ TAB.ER PO SCH (09:53)
[2017-06-18] MEDS: Rivaroxaban TAB(*) 20 MG TAB PO SCH (09:53)
[2017-06-18] MEDS: Carvedilol TAB* 3.125 MG PO SCH (09:53)
[2017-06-18] MEDS: Aspirin Low Dose CHEW TAB* 81 MG PO SCH (09:53)
[2017-06-18] MEDS: Bumetanide TAB* 1 MG PO SCH (09:53)
[2017-06-18] MEDS: Divalproex DR TAB(*) 500 MG PO SCH (09:53)
[2017-06-18] MEDS: Omeprazole CAP* 20 MG PO SCH (10:05)
[2017-06-18] MEDS: Fluticasone NASAL SPRAY 50MCG* 16 gm SPRAY BTL BOTH NARES SCH ×2 (10:08→22:11)
[2017-06-18] MEDS ORDERED: Carvedilol TAB* 3.125 MG PO ONE (11:23)
[2017-06-18] MEDS: Mupirocin 2% OINT* TUBE TOPICAL SCH (11:42)
[2017-06-18] MEDS ORDERED: Digoxin IV* 0.5 MG/2 ML AMP (0.25 MG/ML) IV SLOW PU ONE ×3 (11:53→18:00)
--- NOTE | 2017-06-18 11:57 | RAD ---
INDICATION: Basilar [id number] COMPARISON: June 16, 2017 TECHNIQUE: An AP portable view obtained at 0130 hours is submitted. FINDINGS: Bones/Soft Tissues: There are no acute bony findings. Cardiomediastinal: The cardiomediastinal silhouette is normal. Lungs: There is mild linear changes in both lung bases. There is improved aeration left lung base. The findings are most compatible with atelectasis. Pleura: There are no pleural effusions. Other: Elevation right hemidiaphragm, unchanged IMPRESSION: MILD BIBASILAR ATELECTASIS WITH CHRONIC ELEVATION RIGHT HEMIDIAPHRAGM. NO DEFINITE INFILTRATES. IMPROVED AERATION LEFT LUNG BASE.
[2017-06-18 12:34] LABS: C Reactive Protein 46.95 mg/L (< 5.00)
[2017-06-18] MEDS ORDERED: Influenza VAC *QUAD* 2017-18* 0.5 ML SYRINGE IM ONE (13:00)
[2017-06-18] MEDS: Collagenase 250 MG/GM OINT* 30 GM TOPICAL SCH ×2 (14:31→22:13)
[2017-06-18] MEDS ORDERED: Metoprolol Tartrate TAB* 25 MG PO ONE (17:23)
--- NOTE | 2017-06-18 17:24 | PN ---
Subjective Date of Service: 06/18/17 Interval History: Patient has no acute complaints overnight. No changes in mentation from yesterday. No dizziness or syncope. No CP, SOB, N/V, F/C. Patient on 2L O2, unable to wean. Family History: Unchanged from Admission Social History: Unchanged from Admission Past Medical History: Unchanged from Admission Objective Active Medications: Acetaminophen (Tylenol Tab*) 650 mg PO Q4H PRN PRN Reason: FEVER/PAIN Last Admin: 06/18/17 05:54 Dose: 650 mg Al Hydrox/Mg Hydrox/Simethicone (Maalox Plus*) 15 ml PO Q4H PRN PRN Reason: INDIGESTION Last Admin: 06/17/17 06:00 Dose: 15 ml Aspirin (Aspirin Low Dose Tab*) 81 mg PO DAILY [facility] Last Admin: 06/18/17 09:53 Dose: 81 mg Atorvastatin Calcium (Lipitor*) 10 mg PO BEDTIME [facility] Last Admin: 06/17/17 20:21 Dose: 10 mg Brimonidine Tartrate (Alphagan 0.2%) 1 drop RIGHT EYE BID [facility] Last Admin: 06/18/17 10:08 Dose: 1 drop Bumetanide (Bumex Tab*) 1 mg PO DAILY [facility] Last Admin: 06/18/17 09:53 Dose: 1 mg Collagenase (Santyl 250 Mg/Gm Oint*) 1 applic TOPICAL DAILY [facility] Last Admin: 06/18/17 14:31 Dose: 1 applic Digoxin (Digoxin Iv*) 0.25 mg IV SLOW PU ONCE ONE Stop: 06/18/17 18:01 Divalproex Sodium (Depakote Dr Tab(*)) 500 mg PO QAM [facility] Last Admin: 06/18/17 09:53 Dose: 500 mg Divalproex Sodium (Depakote Dr Tab(*)) 750 mg PO BEDTIME [facility] Last Admin: 06/17/17 20:23 Dose: 750 mg Dorzolamide HCl (Trusopt 2% Opth (Nf)) 1 drop BOTH EYES BID [facility] PRN Reason: Protocol Last Admin: 06/18/17 09:01 Dose: Not Given Escitalopram Oxalate (Lexapro (Nf)) 5 mg PO BEDTIME [facility] Last Admin: 06/17/17 20:32 Dose: 5 mg Fluticasone Propionate (Flonase Nasal [place] 50mcg*) 1 spray BOTH NARES BID [facility] Last Admin: 06/18/17 10:08 Dose: 1 spray Lactic Acid (Lac-Hydrin 12% (Nf)) 1 applic TOPICAL BID [facility] Last Admin: 06/18/17 09:01 Dose: Not Given Latanoprost (Xalatan 0.005%*) 1 drop BOTH EYES BEDTIME [facility] Last Admin: 06/17/17 20:31 Dose: 1 drop Levothyroxine Sodium (Synthroid Tab*) 150 mcg PO 0600 [facility] Last Admin: 06/18/17 05:53 Dose: 150 mcg Levothyroxine Sodium (Synthroid Tab*) 12.5 mcg PO DAILY@0600 [facility] Last Admin: 06/18/17 05:52 Dose: 12.5 mcg Lorazepam (Ativan Tab(*)) 0.5 mg PO BID PRN PRN Reason: ANXIETY Last Admin: 06/17/17 20:22 Dose: 0.5 mg Lurasidone HCl (Latuda) 60 mg PO BEDTIME [facility] Last Admin: 06/17/17 20:34 Dose: 60 mg Magnesium Hydroxide (Milk Of Magnesia Liq*) 30 ml PO Q6H PRN PRN Reason: INDIGESTION Last Admin: 06/17/17 06:00 Dose: 30 ml Metoprolol Tartrate (Lopressor Tab*) 25 mg PO BID [facility] Mometasone Furoate/Formoterol Fumar (Dulera 200/5 Mdi*) 2 puff INH BID [facility] PRN Reason: Protocol Last Admin: 06/18/17 08:32 Dose: 2 puff Montelukast Sodium (Singulair Tab*) 10 mg PO BEDTIME [facility] Last Admin: 06/17/17 20:24 Dose: 10 mg Omeprazole (Prilosec Cap*) 20 mg PO DAILY [facility] Last Admin: 06/18/17 10:05 Dose: 20 mg Potassium Chloride (Klor Con Er Tab*) 10 meq PO DAILY [facility] Last Admin: 06/18/17 09:53 Dose: 10 meq Primidone (Mysoline Tab(*)) 150 mg PO BEDTIME [facility] Last Admin: 06/17/17 20:32 Dose: 150 mg Rivaroxaban (Xarelto (*)) 20 mg PO DAILY [facility] Last Admin: 06/18/17 09:53 Dose: 20 mg Tiotropium [place] (Spiriva Cap.Inh*) 1 cap INH DAILY [facility] Last Admin: 06/18/17 08:35 Dose: 1 cap Tramadol HCl (Ultram*) 50 mg PO BID PRN PRN Reason: PAIN Last Admin: 06/17/17 20:24 Dose: 50 mg Vital Signs 06/17/17 06/17/17 06/17/17 19:05 20:00 20:22 Temperature Pulse Rate Respiratory 18 18 Rate Blood Pressure 108/62 (mmHg) O2 Sat by Pulse 97 Oximetry 06/17/17 06/17/17 06/17/17 20:24 21:19 22:22 Temperature Pulse Rate 102 Respiratory 18 18 18 Rate Blood Pressure (mmHg) O2 Sat by Pulse 92 Oximetry 06/17/17 06/17/17 06/18/17 22:24 23:31 00:00 Temperature 97.3 F Pulse Rate 69 Respiratory 18 18 Rate Blood Pressure 132/58 (mmHg) O2 Sat by Pulse 98 98 Oximetry 06/18/17 06/18/17 06/18/17 03:26 07:18 08:00 Temperature 98.2 F 98.5 F Pulse Rate 94 90 Respiratory 20 16 18 Rate Blood Pressure 110/81 119/72 (mmHg) O2 Sat by Pulse 96 98 98 Oximetry 06/18/17 06/18/17 06/18/17 10:21 11:10 12:13 Temperature 98.6 F Pulse Rate 103 95 115 Respiratory 16 Rate Blood Pressure 134/88 95/52 (mmHg) O2 Sat by Pulse 97 Oximetry 06/18/17 15:26 Temperature 98.0 F Pulse Rate 96 Respiratory 17 Rate Blood Pressure 128/89 (mmHg) O2 Sat by Pulse 100 Oximetry Oxygen Devices in Use Now: - - 2L Appearance: Patient is a 76yo female who appears stated age and is sitting in the chair in NAD. Patient is a very visible tremor. Eyes: No Scleral Icterus, PERRLA Ears/Nose/Mouth/Throat: NL Teeth, Lips, Gums, Clear Oropharnyx, Mucous Membranes Moist Neck: NL Appearance and Movements; NL JVP, Trachea Midline Respiratory: Symmetrical Chest Expansion and Respiratory Effort, - - Decreased lung sounds in right base. Dull to palpation. No other adventitious sounds. Cardiovascular: NL Sounds; No Murmurs; No JVD, - - Irregularly Irregular rhythm. Rate 100-120. 3+ pitting edema to the knees bilaterally. Abdominal: NL Sounds; No Tenderness; No Distention, No Hepatosplenomegaly Lymphatic: No Cervical Adenopathy Skin: - - Open area with eschar on right leg no change from previous exam. Open area on left leg with no change from previous exam. Neurological: - - Alert and orientedx2. 4/5 bottle sorter strength bilaterally. Hesitant gait. CN II-XII grossly intact. Result Diagrams: 06/18/17 04:58 06/18/17 04:58 Additional Lab and Data: Lab Results 06/16/17 06/16/17 06/16/17 Range/Units 01:25 01:25 01:25 WBC (3.5-10.8) 10^3/ul RBC (4.0-5.4) 10^6/ul Hgb (12.0-16.0) g/dl Hct (35-47) % MCV (80-97) fL MCH (27-31) pg MCHC (31-36) g/dl RDW (10.5-15) % Plt Count (150-450) 10^3/ul MPV (7.4-10.4) um3 Neut % (Auto) (38-83) % Lymph % (Auto) (25-47) % Grant % (Auto) (1-9) % Eos % (Auto) (0-6) % Baso % (Auto) (0-2) % Absolute Neuts (auto) (1.5-7.7) 10^3/ul Absolute Lymphs (auto) (1.0-4.8) 10^3/ul Absolute Monos (auto) (0-0.8) 10^3/ul Absolute Eos (auto) (0-0.6) 10^3/ul Absolute Basos (auto) (0-0.2) 10^3/ul Absolute Nucleated RBC 10^3/ul Nucleated RBC % INR (Anticoag Therapy) 1.55 H (0.89-1.11) APTT 38.3 H (26.0-36.3) seconds Sodium 141 (133-145) mmol/L Potassium 3.9 (3.5-5.0) mmol/L Chloride 101 (101-111) mmol/L Carbon Dioxide 36 H (22-32) mmol/L Anion Gap 4 (2-11) mmol/L BUN 31 H (6-24) mg/dL Creatinine 1.14 H (0.51-0.95) mg/dL Est GFR ( Amer) 59.6 (>60) Est GFR (Non-Af Amer) 46.3 (>60) BUN/Creatinine Ratio 27.2 H (8-20) Glucose 107 H (70-100) mg/dL Lactic Acid (0.5-2.0) mmol/L Calcium 8.4 L (8.6-10.3) mg/dL Magnesium 2.0 (1.9-2.7) mg/dL Total Bilirubin 0.30 (0.2-1.0) mg/dL AST 17 (13-39) U/L ALT 12 (7-52) U/L Alkaline Phosphatase 60 (34-104) U/L Total Creatine Kinase 20 (10-223) U/L CK-MB (CK-2) 2.5 (0.6-6.3) ng/mL Troponin I 0.02 (<0.04) ng/mL C-Reactive Protein 30.95 H (< 5.00) mg/L B-Natriuretic Peptide 212 H ( - 100) pg/mL Total Protein 5.7 L (6.4-8.9) g/dL Albumin 2.8 L (3.2-5.2) g/dL Globulin 2.9 (2-4) g/dL Albumin/Globulin Ratio 1.0 (1-3) Lipase 42 (11.0-82.0) U/L TSH 8.93 H (0.34-5.60) mcIU/mL Valproic Acid 83.0 (50-100) mcg/mL 06/16/17 06/16/17 Range/Units 01:25 01:25 WBC 7.2 (3.5-10.8) 10^3/ul RBC 3.37 L (4.0-5.4) 10^6/ul Hgb 10.8 L (12.0-16.0) g/dl Hct 33 L (35-47) % MCV 97 (80-97) fL MCH 32 H (27-31) pg MCHC 33 (31-36) g/dl RDW 16 H (10.5-15) % Plt Count 120 L (150-450) 10^3/ul MPV 8 (7.4-10.4) um3 Neut % (Auto) 76.1 (38-83) % Lymph % (Auto) 13.9 L (25-47) % Grant % (Auto) 8.9 (1-9) % Eos % (Auto) 0.7 (0-6) % Baso % (Auto) 0.4 (0-2) % Absolute Neuts (auto) 5.5 (1.5-7.7) 10^3/ul Absolute Lymphs (auto) 1.0 (1.0-4.8) 10^3/ul Absolute Monos (auto) 0.6 (0-0.8) 10^3/ul Absolute Eos (auto) 0 (0-0.6) 10^3/ul Absolute Basos (auto) 0 (0-0.2) 10^3/ul Absolute Nucleated RBC 0.01 10^3/ul Nucleated RBC % 0.1 INR (Anticoag Therapy) (0.89-1.11) APTT (26.0-36.3) seconds Sodium (133-145) mmol/L Potassium (3.5-5.0) mmol/L Chloride (101-111) mmol/L Carbon Dioxide (22-32) mmol/L Anion Gap (2-11) mmol/L BUN (6-24) mg/dL Creatinine (0.51-0.95) mg/dL Est GFR ( Amer) (>60) Est GFR (Non-Af Amer) (>60) BUN/Creatinine Ratio (8-20) Glucose (70-100) mg/dL Lactic Acid 1.6 (0.5-2.0) mmol/L Calcium (8.6-10.3) mg/dL Magnesium (1.9-2.7) mg/dL Total Bilirubin (0.2-1.0) mg/dL AST (13-39) U/L ALT (7-52) U/L Alkaline Phosphatase (34-104) U/L Total Creatine Kinase (10-223) U/L CK-MB (CK-2) (0.6-6.3) ng/mL Troponin I (<0.04) ng/mL C-Reactive Protein (< 5.00) mg/L B-Natriuretic Peptide ( - 100) pg/mL Total Protein (6.4-8.9) g/dL Albumin (3.2-5.2) g/dL Globulin (2-4) g/dL Albumin/Globulin Ratio (1-3) Lipase (11.0-82.0) U/L TSH (0.34-5.60) mcIU/mL Valproic Acid (50-100) mcg/mL Assess/Plan/Problems-Billing Assessment: Patient is a 76yo female with a PMH significant for CAD, Afib, Diastolic CHF, History of PE, HTN, Asthma, Bipolar I disorder and hypothyroidism who presented after a fall with epileptiform activity and was found to be hypotensive. Patient 's medications have been decreased and her blood pressure has increased, but her HR is consistently above 100 and she is unable to wean off O2. - Patient Problems (1) Syncope Current Visit: Yes Status: Acute Code(s): R55 - SYNCOPE AND COLLAPSE SNOMED Code(s): 036624834 Comment: Patient states she only "sat down" because she was weak. Staff states they saw epileptiform activity and eyes rolled back. EEG shows general encephalopathy probably due to medications without epileptic activity. Appreciate EEG read. Orthostatic VS negative. Patient asymptomatic at this time and with PT. (2) Altered mental status Current Visit: Yes Status: Acute Code(s): R41.82 - ALTERED MENTAL STATUS, UNSPECIFIED SNOMED Code(s): 193231432 Comment: Of unknown duration. No change in AMS with lactulose. Ammonia level normal again. Lactulose D/C'd. EEG shows general encaphalopathy. Probably due to medications. Suggest changing medications to less sedating ones in outpatient. (3) Hypertension Current Visit: Yes Status: Acute Code(s): I10 - ESSENTIAL (PRIMARY) HYPERTENSION SNOMED Code(s): 74002202 Comment: Patient intermittently hypotensive on decreased medications and HR 100-110s. Appreciate cardiology consult, switched coreg to Metoprolol, continue Bumex. (4) Edema Current Visit: Yes Status: Acute Code(s): R60.9 - EDEMA, UNSPECIFIED SNOMED Code(s): 117618995 Comment: Mild, stable on once daily Bumex at this time. (5) Hyperlipidemia Current Visit: Yes Status: Acute Code(s): E78.5 - HYPERLIPIDEMIA, UNSPECIFIED SNOMED Code(s): 50185679 Comment: Continue statin (6) History of pulmonary embolism Current Visit: Yes Status: Acute Code(s): Z86.711 - PERSONAL HISTORY OF PULMONARY EMBOLISM SNOMED Code(s): 760716859 Comment: Continue Xarelto (7) Afib Current Visit: No Status: Acute Code(s): I48.91 - UNSPECIFIED ATRIAL FIBRILLATION SNOMED Code(s): 15727038 Comment: Rate above 100, will switch Coreg to Lopressor 25mg BID. Started on Digoxin with loading dose over 12 hours. HR decreasing. Will investigate other causes of tachycardia. Will stop Singulair, Investigate mild anemia, discontinue lactulose. Appreciate Cardiology consult. (8) Bipolar disorder Current Visit: No Status: Acute Comment: Continue Latuda and Valproate (9) DVT prophylaxis Current Visit: Yes Status: Acute Code(s): MWZ3944 - SNOMED Code(s): 504573009 Comment: [place]. Status and Disposition: Patient admitted inpatient, will discharge when medically able. Estimate 1-2 days.
[2017-06-18] MEDS ORDERED: Carvedilol TAB* 6.25 MG PO SCH ×2 (21:00)
--- NOTE | 2017-06-18 21:42 | CONS ---
CC: Melo Damon, DO * CARDIOLOGY CONSULTATION NOTE: DATE OF CONSULTATION: 06/18/17 REASON FOR CONSULTATION: Recurrent syncope, chronic atrial fibrillation and tachycardic response of her atrial fibrillation. HISTORY OF PRESENT ILLNESS: Mrs. Mayers is a 76-year-old woman who lives in [facility] and has been followed by Dr. Melo Damon in [place]. To the best that I can piece this together because the patient is a poor historian and we only have some of her outpatient records, the patient has had recurrent episodes of loss of consciousness. Prior to this admission, the patient had a witnessed event where she was on the floor with seizure-like activity. Earlier this month, the patient had had a fall or syncopal episode where she had a laceration for which she developed cellulitis requiring antibiotics. Currently, the patient is seated eating her lunch with a nasal cannula on and denies feeling short of breath or poorly, but she is very vague about her current status. She denies chest pain, pressure, heaviness. She states she slept upright for several years and her legs are chronically swollen by history , but she is unable to tell me if this has changed recently. She is unaware of palpitations or racing of the heart and she was unable to give any specifics related to what led to her admission. PAST MEDICAL HISTORY: 1. Chronic atrial fibrillation. 2. Peripheral vascular disease of carotids. 3. Hypertension. 4. Coronary artery disease. 5. Dyslipidemia. 6. Asthma. 7. Hypothyroid disease. 8. Glaucoma. 9. Macular degeneration. 10. Reflux. 11. Alcohol, substance abuse in the distant past. 12. She has a psychiatric history of bipolar disorder. PAST SURGICAL HISTORY: Includes: 1. Appendectomy. 2. Tubal ligation. 3. Right knee replacement. MEDICATIONS: Current inpatient medications include: 1. Tylenol p.r.n. 2. Maalox p.r.n. 3. Aspirin 81 mg a day. 4. Lipitor 10 mg a day. 5. Alphagan ophthalmic drops. 6. Bumex 1 mg a day. 7. Santyl ointment. 8. Depakote 500 mg q.a.m., 750 mg q.p.m. 9. Trusopt ophthalmic drops. 10. Lexapro 5 mg q.h.s. 11. Flonase nasal spray. 12. Lac-Hydrin. 13. Xalatan ophthalmic drops. 14. Synthroid 150 mcg a day and 112.5 mcg a day. 15. Ativan p.r.n. 16. Latuda 60 mg q.h.s. 17. Milk of magnesia. 18. She was on Coreg and recently just today converted to Lopressor 25 mg b.i.d. 19. Formoterol inhaler. 20. Singulair 10 mg q.h.s. 21. Prilosec 20 mg a day. 22. Potassium chloride 10 mEq a day. 23. Primidone tablet 150 mg q.h.s. 24. Xarelto 20 mg a day. 25. Spiriva 1 capsule daily. 26. Ultram p.r.n. pain. Recently discontinued medications included her Coreg and she received a loading dose of digoxin 1 mg and she was on lactulose 30 mL t.i.d. for her elevated ammonia, which was recently stopped. ALLERGIES: Include CODEINE. FAMILY HISTORY: The patient states her father at 65 of ALS and had a mild heart attack in the past. Her mother was "a tough old bird" and lived long time with no clear significant past medical history. She states she has 4 sisters, but was unable to tell me any medical history on them. SOCIAL HISTORY: The patient is living at [facility]. Nonsmoker currently, but she said that she did drink heavily in the distant past but has not in over 30 years. She used to work as a home health aide and lived in the past in the [facility] independently. REVIEW OF SYSTEMS: See history of present illness. She has orthopnea, some shortness of breath. The patient denies recent fevers, chills, sweats. She chronically has to sit up to sleep and breathe comfortably. No chest pain. No change in appetite. All other 14 review of systems attempted, but vague answers. PHYSICAL EXAMINATION: On exam, the patient is 5 feet 7 inches, weighs 197 pounds with a BMI of 31. Vitals: Today her blood pressures have ranged from 95 /52 to 134/88. She is in atrial fibrillation with ventricular rates around the 115 and greater today. Earlier this admission, she was in the 90s. Temperature 98.6, oxygen saturation 97% on 2 L nasal cannula. I's and O's checked and if correct, she has put on 7 pounds this admission. General Appearance: Overweight older woman, seated in a chair, nasal cannula on, eating pasta, appears comfortable. Psychologically, pleasant and cooperative. Neurologically, somewhat slow to respond to questions, but thoughtful. She seems to comprehend the questions well and answer appropriately. Speech is articulate. At times, she will not be able to answer questions at all. No confabulation. She follows commands in the chair. HEENT: Pupils were equal and round. Mucous membranes moist. Neck: Without appreciable thyromegaly or increase in JVP. Breath sounds somewhat diminished in the right base, but no wheezing or rhonchi heard. Coronary: S1, S2 irregularly irregular without murmurs. Abdomen: Overweight, active bowel sounds, soft, no obvious hepatosplenomegaly or masses, but examined in the chair and suboptimal exam. Lower extremities show 3 to 4+ pitting edema up to the knees. She has dressings on, evidence of chronic venous stasis with thickened skin, brawny discoloration and 3 to 4+ pitting edema bilaterally, tense. Skin was somewhat blue tinged and she has multiple ecchymotic areas in the exposed portions of the upper extremities. LABORATORY DATA/DIAGNOSTIC STUDIES: Valproic acid 0.83. Urine; pH 7.50, specific gravity 1.014, nitrites and esterase negative. Sodium 138, potassium 4.1, chloride 101, bicarb 35, glucose 83, BUN 17, creatinine 0.86. BNP of 46. Troponin 0.02. Ammonia level on 06/16/17 was 57. C-reactive protein 30.95 on . TSH 0.93 on 06/16/17. INR 1.55 and PTT 38. White count 9.7, hemoglobin 10.8, hematocrit 32, and platelets 118,000. Echocardiogram from 05/22/17 showed moderate left ventricular hypertrophy with additional increase in the septal hypertrophy with an ejection fraction of 60% to 65%, RV wall thickness increased with normal systolic function, trace to mild mitral insufficiency, trace aortic insufficiency, mild to moderate tricuspid insufficiency, and normal PA pressures. Chest x-ray from 08/16/16 shows elevation of the right diaphragm and atelectasis. Repeat x-ray showed improvement in the atelectasis. ECG done on 06/16/17 shows atrial fibrillation with ventricular rate of 89 beats a minute, QRS axis 0, normal intraventricular conduction times, nonspecific ST and T wave changes. Rhythm strips today show atrial fibrillation with ventricular rates around 115 as above. IMPRESSION AND PLAN: In summary, Lo Mayers is a 76-year-old woman admitted with witnessed seizure-like activity and a history of recurrent syncopal episodes. Recent fall was documented by Dr. Damon. Mrs. Mayers has chronic atrial fibrillation and a history of vascular disease including coronary disease and carotid disease, although I do not have details regarding this. It is uncertain why the patient became tachycardic this admission. The tachycardia could be secondary to underlying medical issues. I am not sure what her elevated C-reactive protein is from, if she has an underlying infection or if this is just the cellulitis she has been treated for in the past. Her elevated ammonia level is noted and there is a psychiatric history, i.e., the patient became agitated could contribute, but I am not seeing evidence of this at the time of my exam. The current issue is that her blood pressures are on the low side and her rate is on the high side. Additional factors that could contribute is her anemia and it is unclear if this is chronic or acute. This appears to be new from last month. We have labs, multiple hematocrits going from October 2016 to June and in October, her hematocrit was 23, in May, and currently it is quite low and this could contribute to her tachycardic response. Her thyroid appears a bit hypothyroid, so it is unlikely her thyroid replacement is contributing but this may be something to look into in the future to ensure her thyroid is optimally managed checking T3 and T4 as well if not recently done as an outpatient. The etiology of her recurrent episodes of falling/loss of consciousness is uncertain and I see she is on an antiseizure medication. Right now, we do not have evidence that a bradycardic event would contribute to this but if not done in the past, consideration of an outpatient monitor could be made to see if she has tachy- patrick syndrome. Additional contributions could include recent lactulose as this can lead to volume loss, Singulair can lead to tachycardia and again her anemia and underlying infection and inflammation. She seems to have had a mild response to conversion of Coreg to Lopressor or initiation of digoxin. I think it reasonable to continue these during her ongoing optimization. At this point, I do not have documentation that tachy or patrick arrhythmias could be leading to her seizure-like activity, but this is possible and we will await findings with further monitoring. Outpatient external or internal event monitors could be considered as well. [id number]/[facility] #: [id number] [facility]
[2017-06-18] MEDS: Primidone TAB(*) 50 MG PO SCH (22:07)
[2017-06-18] MEDS: CMCS Escitalopram (NF) 5 MG TAB PO SCH (22:07)
[2017-06-18] MEDS: Lurasidone(*) 60 MG TAB PO SCH (22:07)
[2017-06-18] MEDS: Divalproex DR TAB(*) 250 MG PO SCH (22:07)
[2017-06-18] MEDS: Atorvastatin* 10 MG TAB PO SCH (22:08)
[2017-06-18] MEDS: Metoprolol Tartrate TAB* 25 MG PO SCH (22:08)
[2017-06-18] MEDS: LORazepam TAB(*) 0.5 MG PO PRN (22:08)
[2017-06-18] MEDS: traMADol TAB* 50 MG PO PRN (22:08)
[2017-06-18] MEDS: Latanoprost 0.005%* 2.5 ml BTL BOTH EYES SCH (22:11)
[2017-06-19] MEDS: Levothyroxine TAB* 150 MCG TAB PO SCH (05:43)
[2017-06-19] MEDS: Levothyroxine TAB* 25 MCG TAB PO SCH (05:44)
[2017-06-19] MEDS: DORZOLAMIDE 2% BOTH EYES SCH ×2 (09:23→22:38)
[2017-06-19] MEDS: LACTIC ACID TOPICAL SCH ×2 (09:23→22:38)
[2017-06-19] MEDS: OPTH BOTH EYES SCH ×2 (09:23→22:38)
[2017-06-19 09:26] LABS: Hematocrit 33 % (35-47); Hemoglobin 10.9 g/dl (12.0-16.0); Immature Retic Fraction 0.64; Maturation Factor Retic 1.5; Mean Corpuscular HGB Conc 33 g/dl (31-36); Mean Corpuscular Hemoglobin 32 pg (27-31); Mean Corpuscular Volume 97 fL (80-97); Mean Platelet Volume 7 um3 (7.4-10.4); Red Blood Count 3.39 10^6/ul (4.0-5.4); Red Cell Distribution Width 16 % (10.5-15); White Blood Count 8.8 10^3/ul (3.5-10.8)
[2017-06-19] MEDS: Potassium Chlor TAB* 10 MEQ TAB.ER PO SCH (09:27)
[2017-06-19] MEDS: Omeprazole CAP* 20 MG PO SCH (09:27)
[2017-06-19] MEDS: Bumetanide TAB* 1 MG PO SCH (09:27)
[2017-06-19] MEDS: Digoxin TAB* 0.125 MG PO SCH (09:27)
[2017-06-19] MEDS: Metoprolol Tartrate TAB* 25 MG PO SCH ×2 (09:27→22:35)
[2017-06-19] MEDS: Divalproex DR TAB(*) 500 MG PO SCH (09:27)
[2017-06-19] MEDS: Rivaroxaban TAB(*) 20 MG TAB PO SCH (09:27)
[2017-06-19] MEDS: Aspirin Low Dose CHEW TAB* 81 MG PO SCH (09:27)
[2017-06-19] MEDS: Fluticasone NASAL SPRAY 50MCG* 16 gm SPRAY BTL BOTH NARES SCH ×2 (09:28→22:36)
[2017-06-19] MEDS: Collagenase 250 MG/GM OINT* 30 GM TOPICAL SCH (09:28)
[2017-06-19 09:44] LABS: BUN/Creatinine Ratio 20.8 (8-20); Calcium 8.4 mg/dL (8.6-10.3); EGFR African American 93.7 (>60); EGFR Non-African American 72.9 (>60); Potassium 4.4 mmol/L (3.5-5.0)
[2017-06-19] MEDS: Mometasone/Formoter 200/5 MDI INH SCH ×2 (09:46→20:16)
[2017-06-19] MEDS: Tiotropium CAP.INH* CAP.INH/18 MCG (USE ORDER SET !) INH SCH (09:46)
[2017-06-19 10:33] LABS: Ferritin 62.2 ng/mL (11-307)
[2017-06-19 10:37] LABS: Folate 8.78 ng/mL (>3.99)
--- NOTE | 2017-06-19 15:17 | PN ---
Subjective Date of Service: 06/19/17 Interval History: Patient significantly improved with mentation overnight. Less lethargic and able to more readily answer questions. No new complaints overnight. No increased SOB, continued need for 2L, dropped to 82% saturation with less than 1 minute off O2. Patient states she feels much better with O2 on. No dizziness with standing. no F/C, N/V, CP, SOB, abdominal pain, diarrhea, or constipation. Family History: Unchanged from Admission Social History: Unchanged from Admission Past Medical History: Unchanged from Admission Objective Active Medications: Acetaminophen (Tylenol Tab*) 650 mg PO Q4H PRN PRN Reason: FEVER/PAIN Last Admin: 06/18/17 05:54 Dose: 650 mg Al Hydrox/Mg Hydrox/Simethicone (Maalox Plus*) 15 ml PO Q4H PRN PRN Reason: INDIGESTION Last Admin: 06/17/17 06:00 Dose: 15 ml Aspirin (Aspirin Low Dose Tab*) 81 mg PO DAILY [facility] Last Admin: 06/19/17 09:27 Dose: 81 mg Atorvastatin Calcium (Lipitor*) 10 mg PO BEDTIME [facility] Last Admin: 06/18/17 22:08 Dose: 10 mg Brimonidine Tartrate (Alphagan 0.2%) 1 drop RIGHT EYE BID [facility] Last Admin: 06/19/17 09:27 Dose: 1 drop Bumetanide (Bumex Tab*) 1 mg PO DAILY [facility] Last Admin: 06/19/17 09:27 Dose: 1 mg Digoxin (Lanoxin Tab*) 0.125 mg PO 0900 [facility] Last Admin: 06/19/17 09:27 Dose: 0.125 mg Divalproex Sodium (Depakote Dr Tab(*)) 500 mg PO QAM [facility] Last Admin: 06/19/17 09:27 Dose: 500 mg Divalproex Sodium (Depakote Dr Tab(*)) 750 mg PO BEDTIME [facility] Last Admin: 06/18/17 22:07 Dose: 750 mg Dorzolamide HCl (Trusopt 2% Opth (Nf)) 1 drop BOTH EYES BID [facility] PRN Reason: Protocol Last Admin: 06/19/17 09:23 Dose: Not Given Escitalopram Oxalate (Lexapro (Nf)) 5 mg PO BEDTIME [facility] Last Admin: 06/18/17 22:07 Dose: 5 mg Fluticasone Propionate (Flonase Nasal [place] 50mcg*) 1 spray BOTH NARES BID [facility] Last Admin: 06/19/17 09:28 Dose: 1 spray Lactic Acid (Lac-Hydrin 12% (Nf)) 1 applic TOPICAL BID [facility] Last Admin: 06/19/17 09:23 Dose: Not Given Latanoprost (Xalatan 0.005%*) 1 drop BOTH EYES BEDTIME [facility] Last Admin: 06/18/17 22:11 Dose: Not Given Levothyroxine Sodium (Synthroid Tab*) 150 mcg PO 0600 [facility] Last Admin: 06/19/17 05:43 Dose: 150 mcg Levothyroxine Sodium (Synthroid Tab*) 12.5 mcg PO DAILY@0600 [facility] Last Admin: 06/19/17 05:44 Dose: 12.5 mcg Lorazepam (Ativan Tab(*)) 0.5 mg PO BID PRN PRN Reason: ANXIETY Last Admin: 06/18/17 22:08 Dose: 0.5 mg Lurasidone HCl (Latuda) 60 mg PO BEDTIME [facility] Last Admin: 06/18/17 22:07 Dose: 60 mg Magnesium Hydroxide (Milk Of Magnesia Liq*) 30 ml PO Q6H PRN PRN Reason: INDIGESTION Last Admin: 06/17/17 06:00 Dose: 30 ml Metoprolol Tartrate (Lopressor Tab*) 25 mg PO BID [facility] Mometasone Furoate/Formoterol Fumar (Dulera 200/5 Mdi*) 2 puff INH BID [facility] PRN Reason: Protocol Last Admin: 06/19/17 09:46 Dose: 2 puff Omeprazole (Prilosec Cap*) 20 mg PO DAILY [facility] Last Admin: 06/19/17 09:27 Dose: 20 mg Potassium Chloride (Klor Con Er Tab*) 10 meq PO DAILY [facility] Last Admin: 06/19/17 09:27 Dose: 10 meq Primidone (Mysoline Tab(*)) 150 mg PO BEDTIME [facility] Last Admin: 06/18/17 22:07 Dose: 150 mg Rivaroxaban (Xarelto (*)) 20 mg PO DAILY [facility] Last Admin: 06/19/17 09:27 Dose: 20 mg Tiotropium [place] (Spiriva Cap.Inh*) 1 cap INH DAILY [facility] Last Admin: 06/19/17 09:46 Dose: 1 cap Tramadol HCl (Ultram*) 50 mg PO BID PRN PRN Reason: PAIN Last Admin: 06/18/17 22:08 Dose: 50 mg Vital Signs 06/18/17 06/18/17 06/18/17 15:26 17:49 19:31 Temperature 98.0 F 96.9 F Pulse Rate 96 92 81 Respiratory 17 18 Rate Blood Pressure 128/89 140/73 (mmHg) O2 Sat by Pulse 100 95 Oximetry 06/18/17 06/18/17 06/18/17 20:00 22:08 23:42 Temperature 97.4 F Pulse Rate 96 Respiratory 18 18 16 Rate Blood Pressure 127/66 (mmHg) O2 Sat by Pulse 95 100 Oximetry 06/19/17 06/19/17 06/19/17 00:00 00:08 03:29 Temperature 97.4 F Pulse Rate 110 Respiratory 18 16 Rate Blood Pressure 125/63 (mmHg) O2 Sat by Pulse 100 89 Oximetry 06/19/17 06/19/17 06/19/17 05:14 07:22 09:52 Temperature 97.4 F Pulse Rate 88 78 Respiratory 16 12 Rate Blood Pressure 129/66 (mmHg) O2 Sat by Pulse 99 100 98 Oximetry 06/19/17 06/19/17 11:40 13:41 Temperature 98.5 F Pulse Rate 86 Respiratory 16 18 Rate Blood Pressure 134/69 (mmHg) O2 Sat by Pulse 100 Oximetry Oxygen Devices in Use Now: Nasal Cannula - 2L Appearance: Patient is a 76yo female who appears stated age and is sitting in the bed in [facility]. Eyes: No Scleral Icterus, PERRLA Ears/Nose/Mouth/Throat: NL Teeth, Lips, Gums, Clear Oropharnyx, Mucous Membranes Moist Neck: NL Appearance and Movements; NL JVP, Trachea Midline Respiratory: Symmetrical Chest Expansion and Respiratory Effort, Clear to Auscultation, - - Decrease breath sounds in right lower lobe consistent with previous exam. Cardiovascular: - - Irregularly Irregular rhythm, rate 70-90. No murmur. 2+ pitting edema to knees bilaterally. Interval improvement. Abdominal: NL Sounds; No Tenderness; No Distention, No Hepatosplenomegaly Lymphatic: No Cervical Adenopathy Extremities: - - Open area with eschar on right leg no change from previous exam. Area of pink skin extending to the ankle without signs of infection. Open area with blister on left leg with no change from previous exam. Skin: No Nodules or Sclerosis Neurological: - - A/Ox2. More communicative than yesterday. CNII-XII grossly intact. Result Diagrams: 06/19/17 09:16 06/19/17 09:16 Additional Lab and Data: Lab Results 06/16/17 06/16/17 06/16/17 Range/Units 01:25 01:25 01:25 WBC (3.5-10.8) 10^3/ul RBC (4.0-5.4) 10^6/ul Hgb (12.0-16.0) g/dl Hct (35-47) % MCV (80-97) fL MCH (27-31) pg MCHC (31-36) g/dl RDW (10.5-15) % Plt Count (150-450) 10^3/ul MPV (7.4-10.4) um3 Neut % (Auto) (38-83) % Lymph % (Auto) (25-47) % [place] % (Auto) (1-9) % Eos % (Auto) (0-6) % Baso % (Auto) (0-2) % Absolute Neuts (auto) (1.5-7.7) 10^3/ul Absolute Lymphs (auto) (1.0-4.8) 10^3/ul Absolute Monos (auto) (0-0.8) 10^3/ul Absolute Eos (auto) (0-0.6) 10^3/ul Absolute Basos (auto) (0-0.2) 10^3/ul Absolute Nucleated RBC 10^3/ul Nucleated RBC % INR (Anticoag Therapy) 1.55 H (0.89-1.11) APTT 38.3 H (26.0-36.3) seconds Sodium 141 (133-145) mmol/L Potassium 3.9 (3.5-5.0) mmol/L Chloride 101 (101-111) mmol/L Carbon Dioxide 36 H (22-32) mmol/L Anion Gap 4 (2-11) mmol/L BUN 31 H (6-24) mg/dL Creatinine 1.14 H (0.51-0.95) mg/dL Est GFR ( Amer) 59.6 (>60) Est GFR (Non-Af Amer) 46.3 (>60) BUN/Creatinine Ratio 27.2 H (8-20) Glucose 107 H (70-100) mg/dL Lactic Acid (0.5-2.0) mmol/L Calcium 8.4 L (8.6-10.3) mg/dL Magnesium 2.0 (1.9-2.7) mg/dL Total Bilirubin 0.30 (0.2-1.0) mg/dL AST 17 (13-39) U/L ALT 12 (7-52) U/L Alkaline Phosphatase 60 (34-104) U/L Total Creatine Kinase 20 (10-223) U/L CK-MB (CK-2) 2.5 (0.6-6.3) ng/mL Troponin I 0.02 (<0.04) ng/mL C-Reactive Protein 30.95 H (< 5.00) mg/L B-Natriuretic Peptide 212 H ( - 100) pg/mL Total Protein 5.7 L (6.4-8.9) g/dL Albumin 2.8 L (3.2-5.2) g/dL Globulin 2.9 (2-4) g/dL Albumin/Globulin Ratio 1.0 (1-3) Lipase 42 (11.0-82.0) U/L TSH 8.93 H (0.34-5.60) mcIU/mL Valproic Acid 83.0 (50-100) mcg/mL 06/16/17 06/16/17 Range/Units 01:25 01:25 WBC 7.2 (3.5-10.8) 10^3/ul RBC 3.37 L (4.0-5.4) 10^6/ul Hgb 10.8 L (12.0-16.0) g/dl Hct 33 L (35-47) % MCV 97 (80-97) fL MCH 32 H (27-31) pg MCHC 33 (31-36) g/dl RDW 16 H (10.5-15) % Plt Count 120 L (150-450) 10^3/ul MPV 8 (7.4-10.4) um3 Neut % (Auto) 76.1 (38-83) % Lymph % (Auto) 13.9 L (25-47) % [place] % (Auto) 8.9 (1-9) % Eos % (Auto) 0.7 (0-6) % Baso % (Auto) 0.4 (0-2) % Absolute Neuts (auto) 5.5 (1.5-7.7) 10^3/ul Absolute Lymphs (auto) 1.0 (1.0-4.8) 10^3/ul Absolute Monos (auto) 0.6 (0-0.8) 10^3/ul Absolute Eos (auto) 0 (0-0.6) 10^3/ul Absolute Basos (auto) 0 (0-0.2) 10^3/ul Absolute Nucleated RBC 0.01 10^3/ul Nucleated RBC % 0.1 INR (Anticoag Therapy) (0.89-1.11) APTT (26.0-36.3) seconds Sodium (133-145) mmol/L Potassium (3.5-5.0) mmol/L Chloride (101-111) mmol/L Carbon Dioxide (22-32) mmol/L Anion Gap (2-11) mmol/L BUN (6-24) mg/dL Creatinine (0.51-0.95) mg/dL Est GFR ( Amer) (>60) Est GFR (Non-Af Amer) (>60) BUN/Creatinine Ratio (8-20) Glucose (70-100) mg/dL Lactic Acid 1.6 (0.5-2.0) mmol/L Calcium (8.6-10.3) mg/dL Magnesium (1.9-2.7) mg/dL Total Bilirubin (0.2-1.0) mg/dL AST (13-39) U/L ALT (7-52) U/L Alkaline Phosphatase (34-104) U/L Total Creatine Kinase (10-223) U/L CK-MB (CK-2) (0.6-6.3) ng/mL Troponin I (<0.04) ng/mL C-Reactive Protein (< 5.00) mg/L B-Natriuretic Peptide ( - 100) pg/mL Total Protein (6.4-8.9) g/dL Albumin (3.2-5.2) g/dL Globulin (2-4) g/dL Albumin/Globulin Ratio (1-3) Lipase (11.0-82.0) U/L TSH (0.34-5.60) mcIU/mL Valproic Acid (50-100) mcg/mL Assess/Plan/Problems-Billing Assessment: Patient is a 76yo female with a PMH significant for CAD, Afib, Diastolic CHF, History of PE, HTN, Asthma, Bipolar I disorder and hypothyroidism who presented after a fall with epileptiform activity and was found to be hypotensive. Patient 's medications have been decreased and her blood pressure has increased, Digoxin started with loading dose and maintenance .125mg daily. Coreg changed to metoprolol. HR between 80 and 100. - Patient Problems (1) Syncope Current Visit: Yes Status: Acute Code(s): R55 - SYNCOPE AND COLLAPSE SNOMED Code(s): 304688737 Comment: Patient states she only "sat down" because she was weak. Staff states they saw epileptiform activity and eyes rolled back. EEG shows general encephalopathy probably due to medications without epileptic activity. Appreciate EEG read. Orthostatic VS negative. Patient asymptomatic at this time and with PT. (2) Altered mental status Current Visit: Yes Status: Acute Code(s): R41.82 - ALTERED MENTAL STATUS, UNSPECIFIED SNOMED Code(s): 832662373 Comment: Of unknown duration. Improved today. No change in AMS with lactulose. Ammonia level normal again. Lactulose D/C'd. EEG shows general encaphalopathy. Probably due to medications. Suggest changing medications to less sedating ones in outpatient. (3) Hypertension Current Visit: Yes Status: Acute Code(s): I10 - ESSENTIAL (PRIMARY) HYPERTENSION SNOMED Code(s): 76438636 Comment: SBP consistently above 120, HR between 70 and 100. Continue Bumex and Metoprolol. (4) Edema Current Visit: Yes Status: Acute Code(s): R60.9 - EDEMA, UNSPECIFIED SNOMED Code(s): 400944819 Comment: Mild, stable on once daily Bumex at this time to prevent recurrence of cellulitis. (5) Hyperlipidemia Current Visit: Yes Status: Acute Code(s): E78.5 - HYPERLIPIDEMIA, UNSPECIFIED SNOMED Code(s): 60908166 Comment: Continue statin (6) History of pulmonary embolism Current Visit: Yes Status: Acute Code(s): Z86.711 - PERSONAL HISTORY OF PULMONARY EMBOLISM SNOMED Code(s): 888559251 Comment: Continue Xarelto (7) Afib Current Visit: No Status: Acute Code(s): I48.91 - UNSPECIFIED ATRIAL FIBRILLATION SNOMED Code(s): 26049283 Comment: HR between 70 and 100. Patient loaded with .75mg of digoxin yesterday as well as 25mg Metoprolol tartrate x2. Patient had a 2.4 second pause this morning. Digoxin level at 1.7. Continue to monitor overnight on maintenance dose of .125mg digoxin daily and 25mg Metoprolol tartrate BID. Unable to assess if patient symptomatic during pause. Singulair stopped. No obvious cause of mild anemia. Possibly due to hypothyroidism or low iron. Ferritin normal, will supplement iron with FeSO4 QPM. Appreciate Cardiology consult. (8) Bipolar disorder Current Visit: No Status: Acute Comment: Continue Latuda and Valproate (9) Bilateral leg ulcer Current Visit: Yes Status: Acute Code(s): L97.919 - NON-PRS CHRONIC ULC UNSP PRT OF R LOW LEG W UNSP SEVERITY; L97.929 - NON-PRS CHRONIC ULC UNSP PRT OF L LOW LEG W UNSP SEVERITY SNOMED Code(s): 61016363 Comment: Due to previous falls. Recently treated with Antibiotics for cellulitis. No signs of recurrent cellulitis. Cover with telfa and kerlix per Dr Melendez's consult. Appreciate consult. (10) DVT prophylaxis Current Visit: Yes Status: Acute Code(s): GTP3398 - SNOMED Code(s): 038463389 Comment: Xarelto. Status and Disposition: Patient admitted inpatient, will discharge when medically able. Estimate 1-2 days.
[2017-06-19] MEDS ORDERED: Digoxin TAB* 0.125 MG PO SCH (17:00)
[2017-06-19] MEDS: Ferrous Sulfate TAB* 325 MG PO SCH (17:19)
[2017-06-19] MEDS: Divalproex DR TAB(*) 250 MG PO SCH (22:34)
[2017-06-19] MEDS: Atorvastatin* 10 MG TAB PO SCH (22:35)
[2017-06-19] MEDS: CMCS Escitalopram (NF) 5 MG TAB PO SCH (22:35)
[2017-06-19] MEDS: Latanoprost 0.005%* 2.5 ml BTL BOTH EYES SCH (22:36)
[2017-06-19] MEDS: Primidone TAB(*) 50 MG PO SCH (22:37)
[2017-06-19] MEDS: Lurasidone(*) 60 MG TAB PO SCH (22:38)
[2017-06-20 06:02] LABS: Hematocrit 34 % (35-47); Hemoglobin 11.5 g/dl (12.0-16.0); Mean Corpuscular HGB Conc 34 g/dl (31-36); Mean Corpuscular Hemoglobin 33 pg (27-31); Mean Corpuscular Volume 96 fL (80-97); Mean Platelet Volume 7 um3 (7.4-10.4); Red Blood Count 3.52 10^6/ul (4.0-5.4); Red Cell Distribution Width 15 % (10.5-15)
[2017-06-20] MEDS: Levothyroxine TAB* 25 MCG TAB PO SCH (06:09)
[2017-06-20] MEDS: Levothyroxine TAB* 150 MCG TAB PO SCH (06:09)
[2017-06-20 06:17] LABS: BUN/Creatinine Ratio 21.1 (8-20); Calcium 8.9 mg/dL (8.6-10.3); EGFR African American 95.2 (>60); Potassium 4.9 mmol/L (3.5-5.0)
[2017-06-20 06:24] LABS: Digoxin 1.3 ng/ml (0.8-2.0)
[2017-06-20] MEDS: Bumetanide TAB* 1 MG PO SCH (08:38)
[2017-06-20] MEDS: Omeprazole CAP* 20 MG PO SCH (08:38)
[2017-06-20] MEDS: Divalproex DR TAB(*) 500 MG PO SCH (08:38)
[2017-06-20] MEDS: Digoxin TAB* 0.125 MG PO SCH (08:38)
[2017-06-20] MEDS: Potassium Chlor TAB* 10 MEQ TAB.ER PO SCH (08:39)
[2017-06-20] MEDS: Aspirin Low Dose CHEW TAB* 81 MG PO SCH (08:39)
[2017-06-20] MEDS: Rivaroxaban TAB(*) 20 MG TAB PO SCH (08:39)
[2017-06-20] MEDS: Fluticasone NASAL SPRAY 50MCG* 16 gm SPRAY BTL BOTH NARES SCH ×2 (08:39→20:18)
[2017-06-20] MEDS: Metoprolol Tartrate TAB* 25 MG PO SCH ×2 (08:39→20:16)
[2017-06-20] MEDS: DORZOLAMIDE 2% BOTH EYES SCH ×2 (08:40→20:17)
[2017-06-20] MEDS: LACTIC ACID TOPICAL SCH ×2 (08:40→20:16)
[2017-06-20] MEDS: OPTH BOTH EYES SCH ×2 (08:40→20:17)
[2017-06-20] MEDS ORDERED: Metoprolol Tartrate TAB* 25 MG PO SCH (09:00)
[2017-06-20] MEDS: Mometasone/Formoter 200/5 MDI INH SCH ×2 (10:00→21:05)
[2017-06-20] MEDS: Tiotropium CAP.INH* CAP.INH/18 MCG (USE ORDER SET !) INH SCH (10:01)
[2017-06-20] MEDS: Ferrous Sulfate TAB* 325 MG PO SCH (17:13)
--- NOTE | 2017-06-20 18:32 | PN ---
Subjective Date of Service: 06/20/17 Interval History: Patient seen and examined at bedside. Denies fever, chills, chest discomfort, N/ V/D. Reports shortness of breath and generalized weakness. She feels like she is slowly improving. Has not been ambulating much yet. Tele: Afib, rate 80-100's. Family History: Unchanged from Admission Social History: Unchanged from Admission Past Medical History: Unchanged from Admission Objective Active Medications: Acetaminophen (Tylenol Tab*) 650 mg PO Q4H PRN Reason: FEVER/PAIN Al Hydrox/Mg Hydrox/Simethicone (Maalox Plus*) 15 ml PO Q4H PRN Reason: INDIGESTION Aspirin (Aspirin Low Dose Tab*) 81 mg PO DAILY [facility] Atorvastatin Calcium (Lipitor*) 10 mg PO BEDTIME [facility] Brimonidine Tartrate (Alphagan 0.2%) 1 drop RIGHT EYE BID [facility] Bumetanide (Bumex Tab*) 1 mg PO DAILY [facility] Digoxin (Lanoxin Tab*) 0.125 mg PO 0900 [facility] Divalproex Sodium (Depakote Dr Tab(*)) 500 mg PO QAM [facility] Divalproex Sodium (Depakote Dr Tab(*)) 750 mg PO BEDTIME [facility] Dorzolamide HCl (Trusopt 2% Opth (Nf)) 1 drop BOTH EYES BID [facility] Escitalopram Oxalate (Lexapro (Nf)) 5 mg PO BEDTIME [facility] Ferrous Sulfate (Ferrous Sulfate Tab*) 325 mg PO QPM [facility] Fluticasone Propionate (Flonase Nasal [place] 50mcg*) 1 spray BOTH NARES BID [facility] Lactic Acid (Lac-Hydrin 12% (Nf)) 1 applic TOPICAL BID [facility] Latanoprost (Xalatan 0.005%*) 1 drop BOTH EYES BEDTIME [facility] Levothyroxine Sodium (Synthroid Tab*) 150 mcg PO 0600 [facility] Levothyroxine Sodium (Synthroid Tab*) 12.5 mcg PO DAILY@0600 [facility] Lorazepam (Ativan Tab(*)) 0.5 mg PO BID PRN Reason: ANXIETY Lurasidone HCl (Latuda) 60 mg PO BEDTIME [facility] Magnesium Hydroxide (Milk Of Magnesia Liq*) 30 ml PO Q6H PRN Reason: INDIGESTION Metoprolol Tartrate (Lopressor Tab*) 25 mg PO BID [facility] Mometasone Furoate/Formoterol Fumar (Dulera 200/5 Mdi*) 2 puff INH BID [facility] Omeprazole (Prilosec Cap*) 20 mg PO DAILY [facility] Potassium Chloride (Klor Con Er Tab*) 10 meq PO DAILY [facility] Primidone (Mysoline Tab(*)) 150 mg PO BEDTIME [facility] Rivaroxaban (Xarelto (*)) 20 mg PO DAILY [facility] Tiotropium [place] (Spiriva Cap.Inh*) 1 cap INH DAILY [facility] Tramadol HCl (Ultram*) 50 mg PO BID PRN Reason: PAIN Vital Signs 06/19/17 06/19/17 06/19/17 19:40 20:13 20:29 Temperature 98.5 F Pulse Rate 210 47 Respiratory 18 20 Rate Blood Pressure 136/84 (mmHg) O2 Sat by Pulse 96 78 100 Oximetry 06/19/17 06/20/17 06/20/17 23:21 00:00 00:05 Temperature 98.7 F Pulse Rate 112 Respiratory 16 Rate Blood Pressure 144/58 (mmHg) O2 Sat by Pulse 96 97 96 Oximetry 06/20/17 06/20/17 06/20/17 03:20 07:24 07:30 Temperature 98.5 F 98.1 F Pulse Rate 86 219 81 Respiratory 16 20 Rate Blood Pressure 143/51 155/55 (mmHg) O2 Sat by Pulse 100 99 Oximetry 06/20/17 06/20/17 06/20/17 08:00 10:01 11:32 Temperature 98.7 F Pulse Rate 95 Respiratory 20 16 Rate Blood Pressure 129/85 (mmHg) O2 Sat by Pulse 99 95 97 Oximetry 06/20/17 06/20/17 15:15 16:00 Temperature 98.7 F Pulse Rate 95 Respiratory 17 Rate Blood Pressure 95/61 (mmHg) O2 Sat by Pulse 100 100 Oximetry Oxygen Devices in Use Now: Nasal Cannula - 2L Appearance: NAD, laying in bed Ears/Nose/Mouth/Throat: Mucous Membranes Moist Respiratory: Symmetrical Chest Expansion and Respiratory Effort, Clear to Auscultation Cardiovascular: NL Sounds; No Murmurs; No JVD, RRR Abdominal: NL Sounds; No Tenderness; No Distention Extremities: - - 1-2+ bilateral LE edema Skin: - - Right LE with area of eschar ~ 3.5 cm x 4 cm and outer open area ~ 6.5 cm x 5 cm. Left LE with intact blister ~ 3.5 cm x 2.5 cm. Neurological: Alert and Oriented x 3 - , Oriented to Person, place and time, NL Muscle Strength and Tone Nutrition: Taking PO's Result Diagrams: 06/20/17 05:35 06/20/17 05:35 Additional Lab and Data: Right LE - taken 06/20/17. Right LE - taken 06/20/17 Left LE - taken 06/20/17 Assess/Plan/Problems-Billing Assessment: Ms. Mayers is a 76yo female with a PMH significant for CAD, Afib, Diastolic CHF, History of PE, HTN, Asthma, Bipolar I disorder and hypothyroidism who presented after a fall with epileptiform activity and was found to be hypotensive. Patient 's medications have been decreased and her blood pressure has increased, Digoxin started with loading dose and maintenance .125mg daily. Coreg changed to metoprolol. - Patient Problems (1) Altered mental status Code(s): R41.82 - ALTERED MENTAL STATUS, UNSPECIFIED SNOMED Code(s): 866650437 Comment: - Of unknown duration. Suspect resolved and Pt is back to baseline. - ? encephalopathy secondary to infection vs medication related. - EEG shows general encaphalopathy. Probably due to medications. - Suggest changing medications to less sedating ones in outpatient. (2) Bilateral leg ulcer Code(s): L97.919 - NON-PRS CHRONIC ULC UNSP PRT OF R LOW LEG W UNSP SEVERITY; L97.929 - NON-PRS CHRONIC ULC UNSP PRT OF L LOW LEG W UNSP SEVERITY SNOMED Code(s): 32229326 Comment: - Due to previous falls - Recently treated with antibiotics outpatient for cellulitis - Wound consult, appreciate input - ? if this is staph cellulitis, will start Cefazolin - Apply Santyl daily and covering with vaseline gauze, and rolled conforming gauze. (3) Syncope Code(s): R55 - SYNCOPE AND COLLAPSE SNOMED Code(s): 480129612 Comment: - Patient asymptomatic at this time and with PT. - Patient states she only "sat down" because she was weak. - Staff states they saw epileptiform activity and eyes rolled back. - EEG shows general encephalopathy probably due to medications without epileptic activity. - Orthostatic VS negative. (4) Edema Code(s): R60.9 - EDEMA, UNSPECIFIED SNOMED Code(s): 343156251 Comment: - Continue once daily Bumex. (5) Anemia Code(s): D64.9 - ANEMIA, UNSPECIFIED SNOMED Code(s): 907559307 Comment: - Suspect anemia of chronic disease - Continue iron supplement (6) History of pulmonary embolism Code(s): Z86.711 - PERSONAL HISTORY OF PULMONARY EMBOLISM SNOMED Code(s): 994176117 Comment: - Continue Xarelto (7) Hyperlipidemia Code(s): E78.5 - HYPERLIPIDEMIA, UNSPECIFIED SNOMED Code(s): 77555481 Comment: - Continue statin (8) Hypertension Code(s): I10 - ESSENTIAL (PRIMARY) HYPERTENSION SNOMED Code(s): 43035332 Comment: - SBP 90-150's. - Continue Bumex and Metoprolol. (9) Afib Code(s): I48.91 - UNSPECIFIED ATRIAL FIBRILLATION SNOMED Code(s): 54499114 Comment: - Rate controlled - Appreciate Cardiology consult - Continue xarelto, digoxin and Metoprolol (10) Bipolar disorder Comment: - Continue Latuda and Valproate (11) DVT prophylaxis Code(s): BMB4182 - SNOMED Code(s): 608757325 Comment: - Xarelto. (12) DNR (do not resuscitate) Status and Disposition: Inpatient, will discharge when medically able. Estimate 1-2 days.
[2017-06-20] MEDS: Latanoprost 0.005%* 2.5 ml BTL BOTH EYES SCH (20:11)
[2017-06-20] MEDS: Primidone TAB(*) 50 MG PO SCH (20:16)
[2017-06-20] MEDS: Divalproex DR TAB(*) 250 MG PO SCH (20:16)
[2017-06-20] MEDS: CMCS Escitalopram (NF) 5 MG TAB PO SCH (20:16)
[2017-06-20] MEDS: Lurasidone(*) 60 MG TAB PO SCH (20:16)
[2017-06-20] MEDS: Atorvastatin* 10 MG TAB PO SCH (20:16)
[2017-06-20] MEDS: ceFAZolin 1 GM VIAL(*) 1 GM in NS 0.9% 50 ML* 50 ML IVPB SCH (20:31)
[2017-06-20] MEDS: LORazepam TAB(*) 0.5 MG PO PRN (23:31)
[2017-06-20] MEDS: traMADol TAB* 50 MG PO PRN (23:31)
[2017-06-21] MEDS: ceFAZolin 1 GM VIAL(*) 1 GM in NS 0.9% 50 ML* 50 ML IVPB SCH ×2 (03:33→12:39)
[2017-06-21] MEDS: Levothyroxine TAB* 150 MCG TAB PO SCH (05:07)
[2017-06-21] MEDS: Levothyroxine TAB* 25 MCG TAB PO SCH (05:07)
[2017-06-21] MEDS: Tiotropium CAP.INH* CAP.INH/18 MCG (USE ORDER SET !) INH SCH (08:03)
[2017-06-21] MEDS: Mometasone/Formoter 200/5 MDI INH SCH ×2 (08:03→20:03)
[2017-06-21] MEDS: Aspirin Low Dose CHEW TAB* 81 MG PO SCH (09:25)
[2017-06-21] MEDS: Bumetanide TAB* 1 MG PO SCH (09:27)
[2017-06-21] MEDS: Rivaroxaban TAB(*) 20 MG TAB PO SCH (09:27)
[2017-06-21] MEDS: Potassium Chlor TAB* 10 MEQ TAB.ER PO SCH (09:27)
[2017-06-21] MEDS: Digoxin TAB* 0.125 MG PO SCH (09:28)
[2017-06-21] MEDS: Divalproex DR TAB(*) 500 MG PO SCH (09:29)
[2017-06-21] MEDS: Metoprolol Tartrate TAB* 25 MG PO SCH (09:30)
[2017-06-21] MEDS: Omeprazole CAP* 20 MG PO SCH (09:30)
[2017-06-21] MEDS: Fluticasone NASAL SPRAY 50MCG* 16 gm SPRAY BTL BOTH NARES SCH ×2 (09:31→21:19)
[2017-06-21] MEDS: DORZOLAMIDE 2% BOTH EYES SCH ×2 (09:36→21:18)
[2017-06-21] MEDS: OPTH BOTH EYES SCH ×2 (09:36→21:18)
[2017-06-21] MEDS: LACTIC ACID TOPICAL SCH ×2 (09:36→21:18)
[2017-06-21] MEDS ORDERED: Digoxin TAB* 0.125 MG PO ONE (12:14)
[2017-06-21] MEDS ORDERED: Metoprolol Tartrate TAB* 25 MG PO ONE (12:15)
--- NOTE | 2017-06-21 12:21 | PN ---
Subjective Date of Service: 06/21/17 Interval History: This is a frail 76 yo female with chronic afib who presented after a fall found to be hypotensive with LE cellulitis associated with chronic leg wounds. She became tachycardic shortly after admission. Started on digoxin and metoprolol. Today, patient has been persistently tachycardic overnight and this am. She denies CP, SOB or palpitations however. She reports little pain in her legs. Denies n/v. No acute complaints. Objective Active Medications: Acetaminophen (Tylenol Tab*) 650 mg PO Q4H PRN PRN Reason: FEVER/PAIN Last Admin: 06/18/17 05:54 Dose: 650 mg Al Hydrox/Mg Hydrox/Simethicone (Maalox Plus*) 15 ml PO Q4H PRN PRN Reason: INDIGESTION Last Admin: 06/17/17 06:00 Dose: 15 ml Aspirin (Aspirin Low Dose Tab*) 81 mg PO DAILY [facility] Last Admin: 06/21/17 09:25 Dose: 81 mg Atorvastatin Calcium (Lipitor*) 10 mg PO BEDTIME [facility] Last Admin: 06/20/17 20:16 Dose: 10 mg Brimonidine Tartrate (Alphagan 0.2%) 1 drop RIGHT EYE BID [facility] Last Admin: 06/21/17 09:33 Dose: 1 drop Bumetanide (Bumex Tab*) 1 mg PO DAILY [facility] Last Admin: 06/21/17 09:27 Dose: 1 mg Collagenase (Santyl 250 Mg/Gm Oint*) 1 applic TOPICAL DAILY [facility] Digoxin (Lanoxin Tab*) 0.125 mg PO 0900 [facility] Last Admin: 06/21/17 09:28 Dose: 0.125 mg Digoxin (Lanoxin Tab*) 0.125 mg PO ONCE ONE Stop: 06/21/17 12:15 Divalproex Sodium (Depakote Dr Tab(*)) 500 mg PO QAM [facility] Last Admin: 06/21/17 09:29 Dose: 500 mg Divalproex Sodium (Depakote Dr Tab(*)) 750 mg PO BEDTIME [facility] Last Admin: 06/20/17 20:16 Dose: 750 mg Dorzolamide HCl (Trusopt 2% Opth (Nf)) 1 drop BOTH EYES BID [facility] PRN Reason: Protocol Last Admin: 06/21/17 09:36 Dose: Not Given Escitalopram Oxalate (Lexapro (Nf)) 5 mg PO BEDTIME [facility] Last Admin: 06/20/17 20:16 Dose: 5 mg Ferrous Sulfate (Ferrous Sulfate Tab*) 325 mg PO QPM [facility] Last Admin: 06/20/17 17:13 Dose: 325 mg Fluticasone Propionate (Flonase Nasal [place] 50mcg*) 1 spray BOTH NARES BID [facility] Last Admin: 06/21/17 09:31 Dose: 1 spray Cefazolin Sodium 1 gm/ Sodium (Chloride) 50 mls @ 200 mls/hr IVPB Q8H [facility] Stop: 06/21/17 19:29 Last Admin: 06/21/17 03:33 Dose: 200 mls/hr Lactic Acid (Lac-Hydrin 12% (Nf)) 1 applic TOPICAL BID [facility] Last Admin: 06/21/17 09:36 Dose: Not Given Latanoprost (Xalatan 0.005%*) 1 drop BOTH EYES BEDTIME [facility] Last Admin: 06/20/17 20:11 Dose: 1 drop Levothyroxine Sodium (Synthroid Tab*) 150 mcg PO 0600 [facility] Last Admin: 06/21/17 05:07 Dose: 150 mcg Levothyroxine Sodium (Synthroid Tab*) 12.5 mcg PO DAILY@0600 [facility] Last Admin: 06/21/17 05:07 Dose: 12.5 mcg Lorazepam (Ativan Tab(*)) 0.5 mg PO BID PRN PRN Reason: ANXIETY Last Admin: 06/20/17 23:31 Dose: 0.5 mg Lurasidone HCl (Latuda) 60 mg PO BEDTIME [facility] Last Admin: 06/20/17 20:16 Dose: 60 mg Magnesium Hydroxide (Milk Of Magnesia Liq*) 30 ml PO Q6H PRN PRN Reason: INDIGESTION Last Admin: 06/17/17 06:00 Dose: 30 ml Metoprolol Tartrate (Lopressor Tab*) 50 mg PO BID [facility] Mometasone Furoate/Formoterol Fumar (Dulera 200/5 Mdi*) 2 puff INH BID [facility] PRN Reason: Protocol Last Admin: 06/21/17 08:03 Dose: 2 puff Omeprazole (Prilosec Cap*) 20 mg PO DAILY [facility] Last Admin: 06/21/17 09:30 Dose: 20 mg Potassium Chloride (Klor Con Er Tab*) 10 meq PO DAILY [facility] Last Admin: 06/21/17 09:27 Dose: 10 meq Primidone (Mysoline Tab(*)) 150 mg PO BEDTIME [facility] Last Admin: 06/20/17 20:16 Dose: 150 mg Rivaroxaban (Xarelto (*)) 20 mg PO DAILY [facility] Last Admin: 06/21/17 09:27 Dose: 20 mg Tiotropium Bedias (Spiriva Cap.Inh*) 1 cap INH DAILY [facility] Last Admin: 06/21/17 08:03 Dose: 1 cap Tramadol HCl (Ultram*) 50 mg PO BID PRN PRN Reason: PAIN Last Admin: 06/20/17 23:31 Dose: 50 mg Vital Signs: Temp Pulse Resp BP Pulse Ox 97.5 F 110 20 129/62 95 06/21/17 07:17 06/21/17 09:28 06/21/17 08:00 06/21/17 07:17 06/21/17 07:17 Oxygen Devices in Use Now: Nasal Cannula Appearance: This is a chronically ill appearing, frail elderly female sitting up in a chair, but in NAD Respiratory: Symmetrical Chest Expansion and Respiratory Effort, Clear to Auscultation Cardiovascular: NL Sounds; No Murmurs; No JVD, - - tachycardic Abdominal: NL Sounds; No Tenderness; No Distention Extremities: - - 1-2+ LE edema Skin: - - Large RLE wound on the R mid lower leg with thick eschar, LLE has a partially broken bullae and area of focal hyperpigmentation superior to that without breakdown. No surrounding erythema Result Diagrams: 06/20/17 05:35 06/20/17 05:35 Additional Lab and Data: Right LE - taken 06/20/17. Right LE - taken 06/20/17 Left LE - taken 06/20/17 Microbiology and Other Data: Microbiology 06/20/17 19:04 Skin and Soft Tissue MRSA/MSSA (PCR - Final Leg Right Mrsa Negative S.aureus Negative Gram Stain - Final Assess/Plan/Problems-Billing Assessment: Ms. Mayers is a 76yo female with a PMH significant for CAD, Afib, Diastolic CHF, History of PE, HTN, Asthma, Bipolar I disorder and hypothyroidism who presented after a fall with epileptiform activity and was found to be hypotensive. Admitted with LE cellulitis associated with chronic LE wounds. - Patient Problems (1) Syncope Comment: Patient asymptomatic at this time and with PT. Patient states she only "sat down" because she was weak. Staff states they saw epileptiform activity and eyes rolled back. EEG shows general encephalopathy probably due to medications without epileptic activity. Likely due to orthostasis (2) Bilateral leg ulcer Comment: Due to previous falls Recently treated with antibiotics outpatient for cellulitis Wound consult, appreciate input Cont Cefazolin Apply Santyl daily to wound and covering with vaseline gauze, and rolled conforming gauze. (3) Afib Comment: Rate controlled at admission Became tachycardic Now tachycardic again, but asx Give additional dose of digoxin today and increase metoprolol Pending re-evaluation by Dr Emerson (4) Atelectasis Comment: Noted hypoxia Bibasilar atelectasis noted on CXR Use incentive spirometer, mobility is limited (5) Hypertension Comment: Now normotensive Continue Bumex and Metoprolol. (6) Edema Comment: Continue once daily Bumex. Recent echo shows no significant heart failure Requested patient have a recliner in her room for leg elevation (7) Bipolar disorder Comment: Appears stable Continue Latuda and Valproate (8) Hyperlipidemia Comment: Continue statin (9) DNR (do not resuscitate) (10) DVT prophylaxis Comment: - Xarelto. Status and Disposition: Inpatient. Patient will likely require ALFONSO following her hospital stay. Anticipate readiness for dc in 1-2d.
[2017-06-21] MEDS: Collagenase 250 MG/GM OINT* 30 GM TOPICAL SCH (12:47)
[2017-06-21] MEDS: Ferrous Sulfate TAB* 325 MG PO SCH (18:15)
[2017-06-21] MEDS: Primidone TAB(*) 50 MG PO SCH (21:18)
[2017-06-21] MEDS: Latanoprost 0.005%* 2.5 ml BTL BOTH EYES SCH (21:18)
[2017-06-21] MEDS: Metoprolol Tartrate TAB* 50 mg PO SCH (21:18)
[2017-06-21] MEDS: Atorvastatin* 10 MG TAB PO SCH (21:19)
[2017-06-21] MEDS: Lurasidone(*) 60 MG TAB PO SCH (21:19)
[2017-06-21] MEDS: CMCS Escitalopram (NF) 5 MG TAB PO SCH (21:19)
[2017-06-21] MEDS: Divalproex DR TAB(*) 250 MG PO SCH (21:19)
--- NOTE | 2017-06-21 23:07 | PN ---
Subjective Date of Service: 06/21/17 - CC: vague historian, admitted post syncope/seizure Interval History: The patient has no specific c/o today, she denies shortness of breath or chest discomfort. Medications Active Medications: Acetaminophen (Tylenol Tab*) 650 mg PO Q4H PRN PRN Reason: FEVER/PAIN Last Admin: 06/18/17 05:54 Dose: 650 mg Al Hydrox/Mg Hydrox/Simethicone (Maalox Plus*) 15 ml PO Q4H PRN PRN Reason: INDIGESTION Last Admin: 06/17/17 06:00 Dose: 15 ml Aspirin (Aspirin Low Dose Tab*) 81 mg PO DAILY [facility] Last Admin: 06/21/17 09:25 Dose: 81 mg Atorvastatin Calcium (Lipitor*) 10 mg PO BEDTIME [facility] Last Admin: 06/21/17 21:19 Dose: 10 mg Brimonidine Tartrate (Alphagan 0.2%) 1 drop RIGHT EYE BID [facility] Last Admin: 06/21/17 21:18 Dose: 1 drop Bumetanide (Bumex Tab*) 1 mg PO DAILY [facility] Last Admin: 06/21/17 09:27 Dose: 1 mg Collagenase (Santyl 250 Mg/Gm Oint*) 1 applic TOPICAL DAILY [facility] Last Admin: 06/21/17 12:47 Dose: 1 dose Digoxin (Lanoxin Tab*) 0.125 mg PO 0900 [facility] Last Admin: 06/21/17 09:28 Dose: 0.125 mg Divalproex Sodium (Depakote Dr Tab(*)) 500 mg PO QAM [facility] Last Admin: 06/21/17 09:29 Dose: 500 mg Divalproex Sodium (Depakote Dr Tab(*)) 750 mg PO BEDTIME [facility] Last Admin: 06/21/17 21:19 Dose: 750 mg Dorzolamide HCl (Trusopt 2% Opth (Nf)) 1 drop BOTH EYES BID [facility] PRN Reason: Protocol Last Admin: 06/21/17 21:18 Dose: Not Given Escitalopram Oxalate (Lexapro (Nf)) 5 mg PO BEDTIME [facility] Last Admin: 06/21/17 21:19 Dose: 5 mg Ferrous Sulfate (Ferrous Sulfate Tab*) 325 mg PO QPM [facility] Last Admin: 06/21/17 18:15 Dose: 325 mg Fluticasone Propionate (Flonase Nasal [place] 50mcg*) 1 spray BOTH NARES BID [facility] Last Admin: 06/21/17 21:19 Dose: 1 spray Lactic Acid (Lac-Hydrin 12% (Nf)) 1 applic TOPICAL BID [facility] Last Admin: 06/21/17 21:18 Dose: Not Given Latanoprost (Xalatan 0.005%*) 1 drop BOTH EYES BEDTIME [facility] Last Admin: 06/21/17 21:18 Dose: 1 drop Levothyroxine Sodium (Synthroid Tab*) 150 mcg PO 0600 [facility] Last Admin: 06/21/17 05:07 Dose: 150 mcg Levothyroxine Sodium (Synthroid Tab*) 12.5 mcg PO DAILY@0600 [facility] Last Admin: 06/21/17 05:07 Dose: 12.5 mcg Lorazepam (Ativan Tab(*)) 0.5 mg PO BID PRN PRN Reason: ANXIETY Last Admin: 06/20/17 23:31 Dose: 0.5 mg Lurasidone HCl (Latuda) 60 mg PO BEDTIME [facility] Last Admin: 06/21/17 21:19 Dose: 60 mg Magnesium Hydroxide (Milk Of Magnesia Liq*) 30 ml PO Q6H PRN PRN Reason: INDIGESTION Last Admin: 06/17/17 06:00 Dose: 30 ml Metoprolol Tartrate (Lopressor Tab*) 50 mg PO BID [facility] Last Admin: 06/21/17 21:18 Dose: 50 mg Mometasone Furoate/Formoterol Fumar (Dulera 200/5 Mdi*) 2 puff INH BID [facility] PRN Reason: Protocol Last Admin: 06/21/17 20:03 Dose: 2 puff Omeprazole (Prilosec Cap*) 20 mg PO DAILY [facility] Last Admin: 06/21/17 09:30 Dose: 20 mg Potassium Chloride (Klor Con Er Tab*) 10 meq PO DAILY [facility] Last Admin: 06/21/17 09:27 Dose: 10 meq Primidone (Mysoline Tab(*)) 150 mg PO BEDTIME [facility] Last Admin: 06/21/17 21:18 Dose: 150 mg Rivaroxaban (Xarelto (*)) 20 mg PO DAILY [facility] Last Admin: 06/21/17 09:27 Dose: 20 mg Tiotropium [place]ov[place] (Spiriva Cap.Inh*) 1 cap INH DAILY [facility] Last Admin: 06/21/17 08:03 Dose: 1 cap Tramadol HCl (Ultram*) 50 mg PO BID PRN PRN Reason: PAIN Last Admin: 06/20/17 23:31 Dose: 50 mg Objective Vital Signs: Temp Pulse Resp BP Pulse Ox 97.4 F 95 14 121/48 98 06/21/17 15:25 06/21/17 20:00 06/21/17 20:00 06/21/17 15:25 06/21/17 20:00 Oxygen Devices in Use Now: Nasal Cannula Appearance: elederly, frail appearance, seated, eating, NAD Eyes: No Scleral Icterus, PERRLA Ears/Nose/Mouth/Throat: Mucous Membranes Moist Neck: NL Appearance and Movements; NL JVP, No Thyroid Enlargement, Masses Respiratory: Clear to Auscultation - diminished bs base of right lung (elevated R hemidiaphragm) Cardiovascular: NL Sounds; No Murmurs; No JVD Abdominal: NL Sounds; No Tenderness; No Distention Extremities: - - dressings on, chronic tense 3+ pitting edema to below the knee. Skin: - - chronic venous stasis changes in legs Neurological: - - vague, appears to have some dementia. Laboratory Results: 06/20/17 05:35 06/20/17 05:35 INR (Anticoag Therapy) 1.55 (0.89-1.11) H 06/16/17 01:25 APTT 38.3 seconds (26.0-36.3) H 06/16/17 01:25 Total Bilirubin 0.30 mg/dL (0.2-1.0) 06/16/17 01:25 AST 17 U/L (13-39) 06/16/17 01:25 ALT 12 U/L (7-52) 06/16/17 01:25 Alkaline Phosphatase 60 U/L (34-104) 06/16/17 01:25 CK-MB (CK-2) 2.5 ng/mL (0.6-6.3) 06/16/17 01:25 B-Natriuretic Peptide 212 pg/mL (-100) H 06/16/17 01:25 Total Protein 5.7 g/dL (6.4-8.9) L 06/16/17 01:25 Albumin 2.8 g/dL (3.2-5.2) L 06/16/17 01:25 Globulin 2.9 g/dL (2-4) 06/16/17 01:25 Albumin/Globulin Ratio 1.0 (1-3) 06/16/17 01:25 TSH 8.93 mcIU/mL (0.34-5.60) H 06/16/17 01:25 EKG Data: Monitor : afib, 100-120's Assessment/Plan 86 yo admitted following falls, seizure like activity being treated for cellulitis of the lower extremities. She has chronic atrial fibrillation, tricuspid insufficiency. 1-2 days following admission the patient became hypotensive and tachycardic. Her BP has improved with conversion of Coreg to pure beta everett (and digoxen) . Her rate control remains sub optimal. Anemia is improving. I agree with trial of increasing metoprolol as BP appears stable. Avoid over dieresis as the patient will need some preload with tricuspid insufficiency. Continue with chronic anticoagulation. No evidence that rhythm issues led to falling/seizure like activity based on her monitoring for several days. Option of out patient event monitor.
[2017-06-22] MEDS: Levothyroxine TAB* 25 MCG TAB PO SCH (05:25)
[2017-06-22] MEDS: Levothyroxine TAB* 150 MCG TAB PO SCH (05:26)
[2017-06-22 07:45] LABS: BUN/Creatinine Ratio 30.4 (8-20); Calcium 8.9 mg/dL (8.6-10.3); EGFR Non-African American 70.8 (>60); Potassium 4.5 mmol/L (3.5-5.0)
[2017-06-22] MEDS: Tiotropium CAP.INH* CAP.INH/18 MCG (USE ORDER SET !) INH SCH (08:01)
[2017-06-22] MEDS: Mometasone/Formoter 200/5 MDI INH SCH ×2 (08:02→20:23)
[2017-06-22] MEDS: Fluticasone NASAL SPRAY 50MCG* 16 gm SPRAY BTL BOTH NARES SCH ×2 (08:18→19:53)
[2017-06-22] MEDS: Digoxin TAB* 0.125 MG PO SCH (08:20)
[2017-06-22] MEDS: Omeprazole CAP* 20 MG PO SCH (08:20)
[2017-06-22] MEDS: Divalproex DR TAB(*) 500 MG PO SCH (08:21)
[2017-06-22] MEDS: Bumetanide TAB* 1 MG PO SCH (08:21)
[2017-06-22] MEDS: Metoprolol Tartrate TAB* 50 mg PO SCH ×2 (08:21→19:40)
[2017-06-22] MEDS: Potassium Chlor TAB* 10 MEQ TAB.ER PO SCH (08:21)
[2017-06-22] MEDS: Rivaroxaban TAB(*) 20 MG TAB PO SCH (08:21)
[2017-06-22] MEDS: Aspirin Low Dose CHEW TAB* 81 MG PO SCH (08:21)
[2017-06-22] MEDS: DORZOLAMIDE 2% BOTH EYES SCH ×2 (10:16→19:47)
[2017-06-22] MEDS: LACTIC ACID TOPICAL SCH ×2 (10:16→19:42)
[2017-06-22] MEDS: Collagenase 250 MG/GM OINT* 30 GM TOPICAL SCH (10:16)
[2017-06-22] MEDS: OPTH BOTH EYES SCH ×2 (10:16→19:47)
--- NOTE | 2017-06-22 15:41 | PN ---
Subjective Date of Service: 06/22/17 Interval History: Patient offers no new complaints. Denies CP, SOB, palpitations. Objective Active Medications: Acetaminophen (Tylenol Tab*) 650 mg PO Q4H PRN PRN Reason: FEVER/PAIN Last Admin: 06/18/17 05:54 Dose: 650 mg Al Hydrox/Mg Hydrox/Simethicone (Maalox Plus*) 15 ml PO Q4H PRN PRN Reason: INDIGESTION Last Admin: 06/17/17 06:00 Dose: 15 ml Aspirin (Aspirin Low Dose Tab*) 81 mg PO DAILY [facility] Last Admin: 06/22/17 08:21 Dose: 81 mg Atorvastatin Calcium (Lipitor*) 10 mg PO BEDTIME [facility] Last Admin: 06/21/17 21:19 Dose: 10 mg Brimonidine Tartrate (Alphagan 0.2%) 1 drop RIGHT EYE BID [facility] Last Admin: 06/22/17 08:17 Dose: 1 drop Bumetanide (Bumex Tab*) 1 mg PO DAILY [facility] Last Admin: 06/22/17 08:21 Dose: 1 mg Collagenase (Santyl 250 Mg/Gm Oint*) 1 applic TOPICAL DAILY [facility] Last Admin: 06/22/17 10:16 Dose: Not Given Digoxin (Lanoxin Tab*) 0.125 mg PO 0900 [facility] Last Admin: 06/22/17 08:20 Dose: 0.125 mg Divalproex Sodium (Depakote Dr Tab(*)) 500 mg PO QAM [facility] Last Admin: 06/22/17 08:21 Dose: 500 mg Divalproex Sodium (Depakote Dr Tab(*)) 750 mg PO BEDTIME [facility] Last Admin: 06/21/17 21:19 Dose: 750 mg Dorzolamide HCl (Trusopt 2% Opth (Nf)) 1 drop BOTH EYES BID [facility] PRN Reason: Protocol Last Admin: 06/22/17 10:16 Dose: Not Given Escitalopram Oxalate (Lexapro (Nf)) 5 mg PO BEDTIME [facility] Last Admin: 06/21/17 21:19 Dose: 5 mg Ferrous Sulfate (Ferrous Sulfate Tab*) 325 mg PO QPM [facility] Last Admin: 06/21/17 18:15 Dose: 325 mg Fluticasone Propionate (Flonase Nasal [place] 50mcg*) 1 spray BOTH NARES BID [facility] Last Admin: 06/22/17 08:18 Dose: 1 spray Lactic Acid (Lac-Hydrin 12% (Nf)) 1 applic TOPICAL BID [facility] Last Admin: 06/22/17 10:16 Dose: Not Given Latanoprost (Xalatan 0.005%*) 1 drop BOTH EYES BEDTIME [facility] Last Admin: 06/21/17 21:18 Dose: 1 drop Levothyroxine Sodium (Synthroid Tab*) 150 mcg PO 0600 [facility] Last Admin: 06/22/17 05:26 Dose: 150 mcg Levothyroxine Sodium (Synthroid Tab*) 12.5 mcg PO DAILY@0600 [facility] Last Admin: 06/22/17 05:25 Dose: 12.5 mcg Lorazepam (Ativan Tab(*)) 0.5 mg PO BID PRN PRN Reason: ANXIETY Last Admin: 06/20/17 23:31 Dose: 0.5 mg Lurasidone HCl (Latuda) 60 mg PO BEDTIME [facility] Last Admin: 06/21/17 21:19 Dose: 60 mg Magnesium Hydroxide (Milk Of Magnesia Liq*) 30 ml PO Q6H PRN PRN Reason: INDIGESTION Last Admin: 06/17/17 06:00 Dose: 30 ml Metoprolol Tartrate (Lopressor Tab*) 50 mg PO BID [facility] Last Admin: 06/22/17 08:21 Dose: 50 mg Mometasone Furoate/Formoterol Fumar (Dulera 200/5 Mdi*) 2 puff INH BID [facility] PRN Reason: Protocol Last Admin: 06/22/17 08:02 Dose: 2 puff Omeprazole (Prilosec Cap*) 20 mg PO DAILY [facility] Last Admin: 06/22/17 08:20 Dose: 20 mg Potassium Chloride (Klor Con Er Tab*) 10 meq PO DAILY [facility] Last Admin: 06/22/17 08:21 Dose: 10 meq Primidone (Mysoline Tab(*)) 150 mg PO BEDTIME [facility] Last Admin: 06/21/17 21:18 Dose: 150 mg Rivaroxaban (Xarelto (*)) 20 mg PO DAILY [facility] Last Admin: 06/22/17 08:21 Dose: 20 mg Tiotropium [place] (Spiriva Cap.Inh*) 1 cap INH DAILY [facility] Last Admin: 06/22/17 08:01 Dose: 1 cap Tramadol HCl (Ultram*) 50 mg PO BID PRN PRN Reason: PAIN Last Admin: 06/20/17 23:31 Dose: 50 mg Vital Signs: Temp Pulse Resp BP Pulse Ox 98.0 F 97 18 140/50 99 06/22/17 07:29 06/22/17 08:20 06/22/17 08:03 06/22/17 07:29 06/22/17 08:03 Oxygen Devices in Use Now: Nasal Cannula Appearance: Frail appearing elderly female in NAD, sitting up in a recliner Respiratory: Symmetrical Chest Expansion and Respiratory Effort, Clear to Auscultation Cardiovascular: NL Sounds; No Murmurs; No JVD, RRR Abdominal: NL Sounds; No Tenderness; No Distention Extremities: - - mild LLE edema, no edema in RLE Skin: - - wounds are wrapped in a clean dry dressing, not re-evaluated today Neurological: Alert and Oriented x 3 Result Diagrams: 06/20/17 05:35 06/22/17 07:14 Additional Lab and Data: Right LE - taken 06/20/17. Right LE - taken 06/20/17 Left LE - taken 06/20/17 Microbiology and Other Data: Microbiology 06/20/17 19:04 Skin and Soft Tissue MRSA/MSSA (PCR - Final Leg Right Mrsa Negative S.aureus Negative Gram Stain - Final Assess/Plan/Problems-Billing Assessment: Ms. Mayers is a 76yo female with a PMH significant for CAD, Afib, Diastolic CHF, History of PE, HTN, Asthma, Bipolar I disorder and hypothyroidism who presented after a fall with epileptiform activity and was found to be hypotensive. Admitted with LE cellulitis associated with chronic LE wounds. - Patient Problems (1) Syncope Comment: Likely due to orthostasis Patient states she only "sat down" because she was weak. Staff states they saw epileptiform activity and eyes rolled back. EEG shows general encephalopathy probably due to medications without epileptic activity. (2) Bilateral leg ulcer Comment: Due to previous falls Recently treated with antibiotics outpatient for cellulitis Wound consult, appreciate input Wound cx grew 3+ Proteus with resistence to quinolones, good MIKE to cefazolin Cont Cefazolin Apply Santyl daily to wound and covering with vaseline gauze, and rolled conforming gauze. (3) Afib Comment: Rate controlled at admission Became tachycardic Tachycardic yesterday Improved rate control today with an additional dose of digoxin and increased metoprolol (4) Atelectasis Comment: Noted hypoxia Bibasilar atelectasis noted on CXR Use incentive spirometer, mobility is limited (5) Hypertension Comment: Now normotensive Continue Bumex and Metoprolol. (6) Edema Comment: Continue once daily Bumex. Recent echo shows no significant heart failure Cont leg elevation (7) Bipolar disorder Comment: Appears stable Continue Latuda and Valproate (8) Hyperlipidemia Comment: Continue statin (9) DNR (do not resuscitate) (10) DVT prophylaxis Comment: - Xarelto. Status and Disposition: Inpatient. Patient would benefit from [facility] rather than returning to [facility] at this time. Will discuss with CM tomorrow.
[2017-06-22] MEDS: Ferrous Sulfate TAB* 325 MG PO SCH (16:32)
[2017-06-22] MEDS: Atorvastatin* 10 MG TAB PO SCH (19:40)
[2017-06-22] MEDS: Divalproex DR TAB(*) 250 MG PO SCH (19:40)
[2017-06-22] MEDS: CMCS Escitalopram (NF) 5 MG TAB PO SCH (19:40)
[2017-06-22] MEDS: Primidone TAB(*) 50 MG PO SCH (19:40)
[2017-06-22] MEDS: Latanoprost 0.005%* 2.5 ml BTL BOTH EYES SCH (19:42)
[2017-06-22] MEDS: Lurasidone(*) 60 MG TAB PO SCH (19:53)
[2017-06-23] MEDS: Levothyroxine TAB* 25 MCG TAB PO SCH (05:21)
[2017-06-23] MEDS: Levothyroxine TAB* 150 MCG TAB PO SCH (05:21)
[2017-06-23] MEDS: Mometasone/Formoter 200/5 MDI INH SCH ×2 (08:16→20:35)
[2017-06-23] MEDS: Tiotropium CAP.INH* CAP.INH/18 MCG (USE ORDER SET !) INH SCH (08:17)
[2017-06-23] MEDS: Digoxin TAB* 0.125 MG PO SCH (09:29)
[2017-06-23] MEDS: Fluticasone NASAL SPRAY 50MCG* 16 gm SPRAY BTL BOTH NARES SCH ×2 (09:29→20:55)
[2017-06-23] MEDS: Bumetanide TAB* 1 MG PO SCH (09:29)
[2017-06-23] MEDS: Potassium Chlor TAB* 10 MEQ TAB.ER PO SCH (09:30)
[2017-06-23] MEDS: Omeprazole CAP* 20 MG PO SCH (09:30)
[2017-06-23] MEDS: Rivaroxaban TAB(*) 20 MG TAB PO SCH (09:30)
[2017-06-23] MEDS: Aspirin Low Dose CHEW TAB* 81 MG PO SCH (09:30)
[2017-06-23] MEDS: Divalproex DR TAB(*) 500 MG PO SCH (09:30)
[2017-06-23] MEDS: OPTH BOTH EYES SCH ×2 (09:31→20:56)
[2017-06-23] MEDS: LACTIC ACID TOPICAL SCH ×2 (09:31→20:56)
[2017-06-23] MEDS: DORZOLAMIDE 2% BOTH EYES SCH ×2 (09:31→20:56)
[2017-06-23] MEDS: Metoprolol Tartrate TAB* 50 mg PO SCH ×2 (09:31→20:55)
[2017-06-23] MEDS: Collagenase 250 MG/GM OINT* 30 GM TOPICAL SCH (12:48)
[2017-06-23] MEDS: ceFAZolin 1 GM VIAL(*) 1 GM in NS 0.9% 50 ML* 50 ML IVPB SCH (16:33)
[2017-06-23] MEDS: Ferrous Sulfate TAB* 325 MG PO SCH (16:33)
--- NOTE | 2017-06-23 17:00 | PN ---
Subjective Date of Service: 06/23/17 Interval History: Patient continues to be without acute complaint and somewhat subdued and forgetful. Patient denies subjective fevers, chills, nausea, vomiting, diarrhea , constipation, chest pain, increased SOB, abdominal pain, or other pain. Patient states her legs hurt intermittently but cannot describe the pain or give provoking or palliating factors. Patient is amenable to go to [facility]. Family History: Unchanged from Admission Social History: Unchanged from Admission Past Medical History: Unchanged from Admission Objective Active Medications: Acetaminophen (Tylenol Tab*) 650 mg PO Q4H PRN PRN Reason: FEVER/PAIN Last Admin: 06/18/17 05:54 Dose: 650 mg Al Hydrox/Mg Hydrox/Simethicone (Maalox Plus*) 15 ml PO Q4H PRN PRN Reason: INDIGESTION Last Admin: 06/17/17 06:00 Dose: 15 ml Aspirin (Aspirin Low Dose Tab*) 81 mg PO DAILY [facility] Last Admin: 06/23/17 09:30 Dose: 81 mg Atorvastatin Calcium (Lipitor*) 10 mg PO BEDTIME [facility] Last Admin: 06/22/17 19:40 Dose: 10 mg Brimonidine Tartrate (Alphagan 0.2%) 1 drop RIGHT EYE BID [facility] Last Admin: 06/23/17 09:29 Dose: 1 drop Bumetanide (Bumex Tab*) 1 mg PO DAILY [facility] Last Admin: 06/23/17 09:29 Dose: 1 mg Collagenase (Santyl 250 Mg/Gm Oint*) 1 applic TOPICAL DAILY [facility] Last Admin: 06/23/17 12:48 Dose: 1 dose Digoxin (Lanoxin Tab*) 0.125 mg PO 0900 [facility] Last Admin: 06/23/17 09:29 Dose: 0.125 mg Divalproex Sodium (Depakote Dr Tab(*)) 500 mg PO QAM [facility] Last Admin: 06/23/17 09:30 Dose: 500 mg Divalproex Sodium (Depakote Dr Tab(*)) 750 mg PO BEDTIME [facility] Last Admin: 06/22/17 19:40 Dose: 750 mg Dorzolamide HCl (Trusopt 2% Opth (Nf)) 1 drop BOTH EYES BID [facility] PRN Reason: Protocol Last Admin: 06/23/17 09:31 Dose: Not Given Escitalopram Oxalate (Lexapro (Nf)) 5 mg PO BEDTIME [facility] Last Admin: 06/22/17 19:40 Dose: 5 mg Ferrous Sulfate (Ferrous Sulfate Tab*) 325 mg PO QPM [facility] Last Admin: 06/23/17 16:33 Dose: 325 mg Fluticasone Propionate (Flonase Nasal [place] 50mcg*) 1 spray BOTH NARES BID [facility] Last Admin: 06/23/17 09:29 Dose: 1 spray Cefazolin Sodium 1 gm/ Sodium (Chloride) 50 mls @ 200 mls/hr IVPB Q8H [facility] Last Admin: 06/23/17 16:33 Dose: 200 mls/hr Lactic Acid (Lac-Hydrin 12% (Nf)) 1 applic TOPICAL BID [facility] Last Admin: 06/23/17 09:31 Dose: Not Given Latanoprost (Xalatan 0.005%*) 1 drop BOTH EYES BEDTIME [facility] Last Admin: 06/22/17 19:42 Dose: 1 drop Levothyroxine Sodium (Synthroid Tab*) 150 mcg PO 0600 [facility] Last Admin: 06/23/17 05:21 Dose: 150 mcg Levothyroxine Sodium (Synthroid Tab*) 12.5 mcg PO DAILY@0600 [facility] Last Admin: 06/23/17 05:21 Dose: 12.5 mcg Lorazepam (Ativan Tab(*)) 0.5 mg PO BID PRN PRN Reason: ANXIETY Last Admin: 06/20/17 23:31 Dose: 0.5 mg Lurasidone HCl (Latuda) 60 mg PO BEDTIME [facility] Last Admin: 06/22/17 19:53 Dose: 60 mg Magnesium Hydroxide (Milk Of Magnesia Liq*) 30 ml PO Q6H PRN PRN Reason: INDIGESTION Last Admin: 06/17/17 06:00 Dose: 30 ml Metoprolol Tartrate (Lopressor Tab*) 50 mg PO BID [facility] Last Admin: 06/23/17 09:31 Dose: 50 mg Mometasone Furoate/Formoterol Fumar (Dulera 200/5 Mdi*) 2 puff INH BID [facility] PRN Reason: Protocol Last Admin: 06/23/17 08:16 Dose: 2 puff Omeprazole (Prilosec Cap*) 20 mg PO DAILY [facility] Last Admin: 06/23/17 09:30 Dose: 20 mg Potassium Chloride (Klor Con Er Tab*) 10 meq PO DAILY [facility] Last Admin: 06/23/17 09:30 Dose: 10 meq Primidone (Mysoline Tab(*)) 150 mg PO BEDTIME [facility] Last Admin: 06/22/17 19:40 Dose: 150 mg Rivaroxaban (Xarelto (*)) 20 mg PO DAILY [facility] Last Admin: 06/23/17 09:30 Dose: 20 mg Tiotropium [place] (Spiriva Cap.Inh*) 1 cap INH DAILY [facility] Last Admin: 06/23/17 08:17 Dose: 1 cap Tramadol HCl (Ultram*) 50 mg PO BID PRN PRN Reason: PAIN Last Admin: 06/20/17 23:31 Dose: 50 mg Vital Signs 06/23/17 11:14 Temperature 99.1 F Pulse Rate 83 Respiratory 20 Rate Blood Pressure 107/58 (mmHg) O2 Sat by Pulse 99 Oximetry Oxygen Devices in Use Now: None, Nasal Cannula Appearance: Patient is a 76yo female with a flat affect who appears stated age and is sitting in the chair in [facility]. Eyes: No Scleral Icterus, PERRLA Ears/Nose/Mouth/Throat: NL Teeth, Lips, Gums, Clear Oropharnyx, Mucous Membranes Moist Neck: NL Appearance and Movements; NL JVP, Trachea Midline Respiratory: Symmetrical Chest Expansion and Respiratory Effort, - - Decreased lung sounds in the right lower lobe. Otherwise CTA, improved from previous exam. Cardiovascular: NL Sounds; No Murmurs; No JVD, - - Irregularly irregular rhythm , rate 80-90. 2+ pitting edema in the bilateral lower extremity, improved from previous exam. Abdominal: NL Sounds; No Tenderness; No Distention, No Hepatosplenomegaly Lymphatic: No Cervical Adenopathy Skin: - - right leg ulcer with eschar, moist and raised. No signs of bleeding or purulent discharge. Increased redness and swelling around the wound. Left leg blister popped with skin intact and a small amount of yellow discharge. Blister has been ruptured since last exam. Neurological: - - A/Ox2 with orientation to season. CN II-XII intact. No other focal deficits. Result Diagrams: 06/20/17 05:35 06/22/17 07:14 Additional Lab and Data: Right LE - taken 06/20/17. Right LE - taken 06/20/17 Left LE - taken 06/20/17 Microbiology and Other Data: Microbiology Assess/Plan/Problems-Billing Assessment: Ms. Mayers is a 76yo female with a PMH significant for CAD, Afib, Diastolic CHF, History of PE, HTN, Asthma, Bipolar I disorder and hypothyroidism who presented after a fall with epileptiform activity and was found to be hypotensive. Admitted with orthostatic hypotension and new LE cellulitis associated with chronic LE wounds. - Patient Problems (1) Syncope Comment: Likely due to orthostasis which is now resolved. Patient states she only "sat down" because she was weak. Staff states they saw epileptiform activity and eyes rolled back. EEG shows general encephalopathy probably due to medications without epileptic activity. (2) Afib Comment: Rate controlled at admission Became tachycardic rate btween 80 and 100 Improved rate control today with an additional dose of digoxin and increased metoprolol Wound infection likely contributing to tachycardia. (3) Bilateral leg ulcer Comment: Due to previous falls Recently treated with antibiotics outpatient for cellulitis Wound consult, appreciate input Wound cx grew 3+ Proteus with resistence to quinolones, good MIKE to cefazolin Start Cefazolin 1g Q8H, will transition to oral therapy when D/C patient did not get cefazolin for 2 days for unknown reason. Apply Santyl daily to wound and covering with vaseline gauze, ABD pad, and rolled conforming gauze. (4) Hypertension Comment: Now normotensive Continue Bumex and Metoprolol. (5) Altered mental status Comment: - Of unknown duration. Suspect resolved and Pt is back to baseline. - ? encephalopathy secondary to infection vs medication related. - EEG shows general encaphalopathy. Probably due to medications. - Suggest changing medications to less sedating ones in outpatient. (6) Edema Current Visit: Yes Status: Acute Code(s): R60.9 - EDEMA, UNSPECIFIED SNOMED Code(s): 169681965 Comment: Continue once daily Bumex. Recent echo shows no significant heart failure Cont leg elevation and diuretics to aid in wound healing. (7) Hyperlipidemia Current Visit: No Status: Chronic Code(s): E78.5 - HYPERLIPIDEMIA, UNSPECIFIED SNOMED Code(s): 41337393 Comment: Continue statin (8) History of pulmonary embolism Current Visit: No Status: Chronic Code(s): Z86.711 - PERSONAL HISTORY OF PULMONARY EMBOLISM SNOMED Code(s): 134045131 Comment: - Continue Xarelto (9) Bipolar disorder Current Visit: No Status: Chronic Comment: Appears stable Continue Latuda and Valproate (10) DVT prophylaxis Current Visit: Yes Status: Acute Code(s): LYS3067 - SNOMED Code(s): 852436212 Comment: - Xarelto. Status and Disposition: Inpatient. Patient would benefit from [facility] rather than returning to [facility] at this time. Info sent out to [facility] in the area.
[2017-06-23] MEDS: Atorvastatin* 10 MG TAB PO SCH (20:55)
[2017-06-23] MEDS: Primidone TAB(*) 50 MG PO SCH (20:55)
[2017-06-23] MEDS: CMCS Escitalopram (NF) 5 MG TAB PO SCH (20:55)
[2017-06-23] MEDS: Latanoprost 0.005%* 2.5 ml BTL BOTH EYES SCH (20:55)
[2017-06-23] MEDS: Divalproex DR TAB(*) 250 MG PO SCH (20:55)
[2017-06-23] MEDS: Lurasidone(*) 60 MG TAB PO SCH (21:00)
[2017-06-24] MEDS: ceFAZolin 1 GM VIAL(*) 1 GM in NS 0.9% 50 ML* 50 ML IVPB SCH ×3 (00:30→15:47)
[2017-06-24] MEDS: Levothyroxine TAB* 25 MCG TAB PO SCH (05:23)
[2017-06-24] MEDS: Levothyroxine TAB* 150 MCG TAB PO SCH (05:23)
[2017-06-24 05:54] LABS: Hematocrit 31 % (35-47); Hemoglobin 10.5 g/dl (12.0-16.0); Mean Corpuscular HGB Conc 34 g/dl (31-36); Mean Corpuscular Hemoglobin 32 pg (27-31); Mean Corpuscular Volume 96 fL (80-97); Mean Platelet Volume 8 um3 (7.4-10.4); Red Blood Count 3.24 10^6/ul (4.0-5.4); Red Cell Distribution Width 15 % (10.5-15); White Blood Count 7.8 10^3/ul (3.5-10.8)
[2017-06-24 06:12] LABS: BUN/Creatinine Ratio 33.3 (8-20); C Reactive Protein 39.91 mg/L (< 5.00); Calcium 8.7 mg/dL (8.6-10.3); EGFR African American 106.4 (>60); EGFR Non-African American 82.7 (>60)
[2017-06-24] MEDS: Aspirin Low Dose CHEW TAB* 81 MG PO SCH (08:28)
[2017-06-24] MEDS: Bumetanide TAB* 1 MG PO SCH (08:28)
[2017-06-24] MEDS: Digoxin TAB* 0.125 MG PO SCH (08:28)
[2017-06-24] MEDS: Omeprazole CAP* 20 MG PO SCH (08:29)
[2017-06-24] MEDS: Divalproex DR TAB(*) 500 MG PO SCH (08:29)
[2017-06-24] MEDS: Metoprolol Tartrate TAB* 50 mg PO SCH ×2 (08:29→22:46)
[2017-06-24] MEDS: Potassium Chlor TAB* 10 MEQ TAB.ER PO SCH (08:30)
[2017-06-24] MEDS: Rivaroxaban TAB(*) 20 MG TAB PO SCH (08:31)
[2017-06-24] MEDS: Fluticasone NASAL SPRAY 50MCG* 16 gm SPRAY BTL BOTH NARES SCH ×2 (08:33→22:46)
[2017-06-24] MEDS: traMADol TAB* 50 MG PO PRN (08:39)
[2017-06-24] MEDS: LACTIC ACID TOPICAL SCH ×2 (08:46→22:49)
[2017-06-24] MEDS: OPTH BOTH EYES SCH ×2 (08:46→22:49)
[2017-06-24] MEDS: DORZOLAMIDE 2% BOTH EYES SCH ×2 (08:46→22:49)
[2017-06-24] MEDS: Tiotropium CAP.INH* CAP.INH/18 MCG (USE ORDER SET !) INH SCH (09:04)
[2017-06-24] MEDS: Mometasone/Formoter 200/5 MDI INH SCH ×2 (09:04→20:11)
[2017-06-24] MEDS: Collagenase 250 MG/GM OINT* 30 GM TOPICAL SCH (10:45)
[2017-06-24] MEDS: Ferrous Sulfate TAB* 325 MG PO SCH (16:33)
--- NOTE | 2017-06-24 18:22 | PN ---
Subjective Date of Service: 06/24/17 Interval History: Patient continues to have no acute complaints. Patient is excited to be discharged tomorrow. Denies CP, SOB, N/V, F/C, Abdominal Pain, Dysuria, or other pain. Patient has been on no oxygen all day and has no increased SOB. Family History: Unchanged from Admission Social History: Unchanged from Admission Past Medical History: Unchanged from Admission Objective Active Medications: Acetaminophen (Tylenol Tab*) 650 mg PO Q4H PRN PRN Reason: FEVER/PAIN Last Admin: 06/18/17 05:54 Dose: 650 mg Al Hydrox/Mg Hydrox/Simethicone (Maalox Plus*) 15 ml PO Q4H PRN PRN Reason: INDIGESTION Last Admin: 06/17/17 06:00 Dose: 15 ml Aspirin (Aspirin Low Dose Tab*) 81 mg PO DAILY [facility] Last Admin: 06/24/17 08:28 Dose: 81 mg Atorvastatin Calcium (Lipitor*) 10 mg PO BEDTIME [facility] Last Admin: 06/23/17 20:55 Dose: 10 mg Brimonidine Tartrate (Alphagan 0.2%) 1 drop RIGHT EYE BID [facility] Last Admin: 06/24/17 08:33 Dose: 1 drop Bumetanide (Bumex Tab*) 1 mg PO DAILY [facility] Last Admin: 06/24/17 08:28 Dose: 1 mg Collagenase (Santyl 250 Mg/Gm Oint*) 1 applic TOPICAL DAILY [facility] Last Admin: 06/24/17 10:45 Dose: 1 dose Digoxin (Lanoxin Tab*) 0.125 mg PO 0900 [facility] Last Admin: 06/24/17 08:28 Dose: 0.125 mg Divalproex Sodium (Depakote Dr Tab(*)) 500 mg PO QAM [facility] Last Admin: 06/24/17 08:29 Dose: 500 mg Divalproex Sodium (Depakote Dr Tab(*)) 750 mg PO BEDTIME [facility] Last Admin: 06/23/17 20:55 Dose: 750 mg Dorzolamide HCl (Trusopt 2% Opth (Nf)) 1 drop BOTH EYES BID [facility] PRN Reason: Protocol Last Admin: 06/24/17 08:46 Dose: Not Given Escitalopram Oxalate (Lexapro (Nf)) 5 mg PO BEDTIME [facility] Last Admin: 10/23/17 20:55 Dose: 5 mg Ferrous Sulfate (Ferrous Sulfate Tab*) 325 mg PO QPM [facility] Last Admin: 06/24/17 16:33 Dose: 325 mg Fluticasone Propionate (Flonase Nasal [place] 50mcg*) 1 spray BOTH NARES BID [facility] Last Admin: 06/24/17 08:33 Dose: 1 spray Cefazolin Sodium 1 gm/ Sodium (Chloride) 50 mls @ 200 mls/hr IVPB Q8H [facility] Last Admin: 06/24/17 15:47 Dose: 200 mls/hr Lactic Acid (Lac-Hydrin 12% (Nf)) 1 applic TOPICAL BID [facility] Last Admin: 06/24/17 08:46 Dose: Not Given Latanoprost (Xalatan 0.005%*) 1 drop BOTH EYES BEDTIME [facility] Last Admin: 06/23/17 20:55 Dose: 1 drop Levothyroxine Sodium (Synthroid Tab*) 150 mcg PO 0600 [facility] Last Admin: 06/24/17 05:23 Dose: 150 mcg Levothyroxine Sodium (Synthroid Tab*) 12.5 mcg PO DAILY@0600 [facility] Last Admin: 06/24/17 05:23 Dose: 12.5 mcg Lorazepam (Ativan Tab(*)) 0.5 mg PO BID PRN PRN Reason: ANXIETY Last Admin: 06/20/17 23:31 Dose: 0.5 mg Lurasidone HCl (Latuda) 60 mg PO BEDTIME [facility] Last Admin: 06/23/17 21:00 Dose: 60 mg Magnesium Hydroxide (Milk Of Magnesia Liq*) 30 ml PO Q6H PRN PRN Reason: INDIGESTION Last Admin: 06/17/17 06:00 Dose: 30 ml Metoprolol Tartrate (Lopressor Tab*) 50 mg PO BID [facility] Last Admin: 06/24/17 08:29 Dose: 50 mg Mometasone Furoate/Formoterol Fumar (Dulera 200/5 Mdi*) 2 puff INH BID [facility] PRN Reason: Protocol Last Admin: 06/24/17 09:04 Dose: 2 puff Omeprazole (Prilosec Cap*) 20 mg PO DAILY [facility] Last Admin: 06/24/17 08:29 Dose: 20 mg Potassium Chloride (Klor Con Er Tab*) 10 meq PO DAILY [facility] Last Admin: 06/24/17 08:30 Dose: 10 meq Rivaroxaban (Xarelto (*)) 20 mg PO DAILY [facility] Last Admin: 06/24/17 08:31 Dose: 20 mg Tiotropium [place] (Spiriva Cap.Inh*) 1 cap INH DAILY [facility] Last Admin: 06/24/17 09:04 Dose: 1 cap Tramadol HCl (Ultram*) 50 mg PO BID PRN PRN Reason: PAIN Last Admin: 06/24/17 08:39 Dose: 50 mg Vital Signs 06/23/17 06/23/17 06/23/17 19:26 20:00 21:23 Temperature 100.5 F 99.3 F Pulse Rate 96 Respiratory 16 18 Rate Blood Pressure 125/57 (mmHg) O2 Sat by Pulse 96 Oximetry 06/23/17 06/24/17 06/24/17 23:59 02:33 03:30 Temperature 99.4 F 99.4 F Pulse Rate 98 95 Respiratory 16 16 Rate Blood Pressure 133/59 150/68 (mmHg) O2 Sat by Pulse 92 95 94 Oximetry 06/24/17 06/24/17 06/24/17 08:00 08:28 08:39 Temperature Pulse Rate 100 Respiratory 16 14 Rate Blood Pressure (mmHg) O2 Sat by Pulse 93 Oximetry 06/24/17 06/24/17 06/24/17 09:09 10:22 11:43 Temperature 98.4 F Pulse Rate 70 95 Respiratory 16 14 20 Rate Blood Pressure 105/39 (mmHg) O2 Sat by Pulse 93 95 Oximetry 06/24/17 12:39 Temperature Pulse Rate Respiratory 16 Rate Blood Pressure (mmHg) O2 Sat by Pulse Oximetry Oxygen Devices in Use Now: None Appearance: Patient is a 76yo female with a flat affect who appears stated age and is sitting in the bed in [facility]. Eyes: No Scleral Icterus, PERRLA Ears/Nose/Mouth/Throat: NL Teeth, Lips, Gums, Clear Oropharnyx, Mucous Membranes Moist Neck: NL Appearance and Movements; NL JVP, Trachea Midline Respiratory: Symmetrical Chest Expansion and Respiratory Effort, - - Decreased lung sounds in right lower lobe. Stable from previous exam. No other adventitious lung sounds. Cardiovascular: NL Sounds; No Murmurs; No JVD, - - Irregularly irregular rhythm , 2+ edema in the bilateral legs up to the knee Abdominal: NL Sounds; No Tenderness; No Distention, No Hepatosplenomegaly Lymphatic: No Cervical Adenopathy Skin: - - Stable lower leg ulcers with no signs of improvement. Neurological: - - A/Ox2, CN II-XII intact. Stable tremor worse in right hand than left. Result Diagrams: 06/24/17 04:27 06/24/17 04:27 Additional Lab and Data: Right LE - taken 06/20/17. Right LE - taken 06/20/17 Left LE - taken 06/20/17 Microbiology and Other Data: Microbiology Assess/Plan/Problems-Billing Assessment: Ms. Mayers is a 76yo female with a PMH significant for CAD, Afib, Diastolic CHF, History of PE, HTN, Asthma, Bipolar I disorder and hypothyroidism who presented after a fall with epileptiform activity and was found to be hypotensive. Admitted with orthostatic hypotension and new LE cellulitis associated with chronic LE wounds. - Patient Problems (1) Syncope Comment: Likely due to orthostasis which is now resolved. Patient states she only "sat down" because she was weak. Staff states they saw epileptiform activity and eyes rolled back. EEG shows general encephalopathy probably due to medications without epileptic activity. (2) Afib Comment: Rate controlled at admission Became tachycardic rate btween 80 and 100 Adequate rate control Wound infection likely contributing to tachycardia. (3) Bilateral leg ulcer Comment: Due to previous falls Recently treated with antibiotics outpatient for cellulitis Wound consult, appreciate input Wound cx grew 3+ Proteus with resistence to quinolones, good MIKE to cefazolin Start Cefazolin 1g Q8H, will transition to oral therapy when D/C Patient did not get cefazolin for 2 days for unknown reason. Apply Santyl daily to wound and covering with vaseline gauze, ABD pad, and rolled conforming gauze. (4) Hypertension Comment: Now normotensive Continue Bumex and Metoprolol. (5) Altered mental status Comment: - Of unknown duration. Suspect resolved and Pt is back to baseline. - ? encephalopathy secondary to infection vs medication related. - EEG shows general encaphalopathy. Probably due to medications. - Suggest changing medications to less sedating ones in outpatient. (6) Edema Current Visit: Yes Status: Acute Code(s): R60.9 - EDEMA, UNSPECIFIED SNOMED Code(s): 939219914 Comment: Continue once daily Bumex. Recent echo shows no significant heart failure Cont leg elevation and diuretics to aid in wound healing. (7) Hyperlipidemia Current Visit: No Status: Chronic Code(s): E78.5 - HYPERLIPIDEMIA, UNSPECIFIED SNOMED Code(s): 06881047 Comment: Continue statin (8) History of pulmonary embolism Current Visit: No Status: Chronic Code(s): Z86.711 - PERSONAL HISTORY OF PULMONARY EMBOLISM SNOMED Code(s): 604597103 Comment: - Continue Xarelto (9) Bipolar disorder Current Visit: No Status: Chronic Comment: Appears stable Continue Latuda and Valproate (10) DVT prophylaxis Current Visit: Yes Status: Acute Code(s): RLP8073 - SNOMED Code(s): 232767805 Comment: - Xarelto. Status and Disposition: Inpatient. Patient would benefit from [facility] rather than returning to [facility] at this time. Will be discharged to [facility] in morning.
[2017-06-24] MEDS: CMCS Escitalopram (NF) 5 MG TAB PO SCH (22:45)
[2017-06-24] MEDS: Lurasidone(*) 60 MG TAB PO SCH (22:45)
[2017-06-24] MEDS: Divalproex DR TAB(*) 250 MG PO SCH (22:45)
[2017-06-24] MEDS: Atorvastatin* 10 MG TAB PO SCH (22:46)
[2017-06-24] MEDS: Latanoprost 0.005%* 2.5 ml BTL BOTH EYES SCH (22:46)
[2017-06-25] MEDS: ceFAZolin 1 GM VIAL(*) 1 GM in NS 0.9% 50 ML* 50 ML IVPB SCH ×2 (00:37→09:49)
[2017-06-25] MEDS: LORazepam TAB(*) 0.5 MG PO PRN (02:14)
[2017-06-25] MEDS: Levothyroxine TAB* 25 MCG TAB PO SCH (05:38)
[2017-06-25] MEDS: Levothyroxine TAB* 150 MCG TAB PO SCH (05:39)
[2017-06-25 07:03] LABS: Hematocrit 34 % (35-47); Hemoglobin 11.1 g/dl (12.0-16.0); Mean Corpuscular HGB Conc 33 g/dl (31-36); Mean Corpuscular Hemoglobin 32 pg (27-31); Mean Corpuscular Volume 96 fL (80-97); Mean Platelet Volume 8 um3 (7.4-10.4); Red Cell Distribution Width 16 % (10.5-15); White Blood Count 7.3 10^3/ul (3.5-10.8)
[2017-06-25 07:14] LABS: BUN/Creatinine Ratio 28.6 (8-20); Calcium 8.7 mg/dL (8.6-10.3); EGFR African American 118.2 (>60); EGFR Non-African American 91.9 (>60); Potassium 4.1 mmol/L (3.5-5.0)
[2017-06-25 07:34] VITALS: BP 154/68
[2017-06-25] MEDS: Mometasone/Formoter 200/5 MDI INH SCH (08:18)
[2017-06-25] MEDS: Tiotropium CAP.INH* CAP.INH/18 MCG (USE ORDER SET !) INH SCH (08:19)
[2017-06-25] MEDS: Collagenase 250 MG/GM OINT* 30 GM TOPICAL SCH (09:48)
[2017-06-25] MEDS: Digoxin TAB* 0.125 MG PO SCH (09:48)
[2017-06-25] MEDS: Omeprazole CAP* 20 MG PO SCH (09:49)
[2017-06-25] MEDS: Potassium Chlor TAB* 10 MEQ TAB.ER PO SCH (09:49)
[2017-06-25] MEDS: Metoprolol Tartrate TAB* 50 mg PO SCH (09:49)
[2017-06-25] MEDS: Bumetanide TAB* 1 MG PO SCH (09:49)
[2017-06-25] MEDS: Divalproex DR TAB(*) 500 MG PO SCH (09:49)
[2017-06-25] MEDS: Aspirin Low Dose CHEW TAB* 81 MG PO SCH (09:49)
[2017-06-25] MEDS: Rivaroxaban TAB(*) 20 MG TAB PO SCH (09:49)
[2017-06-25] MEDS: Fluticasone NASAL SPRAY 50MCG* 16 gm SPRAY BTL BOTH NARES SCH (09:49)
[2017-06-25] MEDS: LACTIC ACID TOPICAL SCH (09:51)
[2017-06-25] MEDS: OPTH BOTH EYES SCH (09:51)
[2017-06-25] MEDS: DORZOLAMIDE 2% BOTH EYES SCH (09:51)
--- NOTE | 2017-06-25 11:13 | DS ---
DISCHARGE SUMMARY DATE OF ADMISSION: 06/16/2017 DATE OF DISCHARGE: 06/25/2017 PRIMARY CARE DOCTOR: Dr. Melo Damon ATTENDING WHILE IN THE HOSPITAL: Dr. Emanuel Morris* (dictated by KYLIE Leger). PRIMARY DISCHARGE DIAGNOSES: 1. Syncope with fall. 2. Orthostatic hypotension. 3. Atrial fibrillation with rapid ventricular response. 4. Lower leg cellulitis. SECONDARY DISCHARGE DIAGNOSES: Include: 1. Coronary artery disease. 2. Hyperlipidemia. 3. History of pulmonary embolus. 4. Hypertension. 5. Asthma. 6. Bipolar I disorder. 7. Hypothyroidism. 8. Obstructive sleep apnea. CONSULTING PROVIDERS: Dr. Giovanny Melendez of General Surgery; Dr. Meme Emerson of Cardiology. STUDIES DONE WHILE IN THE HOSPITAL: 1. Chest x-ray from 06/16/17. Read as: Basilar atelectasis, suspect developing left basilar infiltrate. Suggest followup. 2. Electrocardiogram from 06/16/17. Shows: Atrial fibrillation with a rate of [address] segment changes. QTC of 457. Intraventricular conduction delay. Normal axis. No other abnormalities. 3. Chest x-ray from 06/18/17. Read as: Bibasilar atelectasis with chronic elevation of the right hemidiaphragm. No definite infiltrates. Improved aeration left lung base. 4. Pulse oximetry from 06/17/17. Shows: Time with SPO2 greater than 90% 01:15: 32, with SPO2 greater than 80 less than 90% 06:40:12, longest continuous time with saturation less than 89% was 00:20:44. 5. Pulse oximetry from 06/18/17 with oxygen at 2L. Shows: Time with SPO2 greater than 90% 08:24:28, longest continuos time with saturation less then 90% was 00:00:52 starting at 06/18/17 0454. MEDICATIONS AT DISCHARGE: 1. Maalox 15 mL p.o. every 4 hours as needed. 2. Kaopectate 30 mL p.o. daily as needed. 3. Lexapro 5 mg p.o. at bedtime. 4. Gabapentin 200 mg p.o. t.i.d. 5. Neurontin 200 mg p.o. t.i.d. 6. Xarelto 20 mg p.o. daily. 7. Atorvastatin 10 mg p.o. at bedtime. 8. Flonase 1 spray both nares b.i.d. 9. Tramadol 50 mg p.o. b.i.d. as needed. 10. Levothyroxine 150 micrograms p.o. q.a.m. 11. Levothyroxine 12.5 mg p.o. q.a.m. 12.. Alphagan 1 drop b.i.d. 13. Lactic acid 12% topical b.i.d. 14. Omeprazole 20 mg p.o. daily. 15. Potassium chloride 10 mEq daily. 16. Latuda 60 mg p.o. at bedtime. 17. Dorzolamide 1 drop both eyes b.i.d. 18. Latanoprost 1 drop both eyes at bedtime. 19. PreserVision 1 cap p.o. b.i.d. 20. Bumex 1 tab p.o. daily. 21. Incruse Ellipta 62.5 micrograms inhalation daily. 22. Tylenol 650 mg p.o. every 4 hours as needed. 23. Primidone 150 mg p.o. at bedtime. 24. Penn's cough drops 7 mg p.o. every 4 hours as needed. 25. Magnesium hydroxide liquid 30 mL p.o. every 6 hours as needed. 26. Symbicort 2 puffs inhalation b.i.d. 27. Aspirin 81 mg p.o. daily. 28. Lorazepam 0.5 mg p.o. b.i.d. as needed. 29. Depakote 750 mg p.o. at bedtime. 30. Depakote 500 mg p.o. q.a.m. 31. Santyl 250 mg/gram 1 topical daily. 32. Lanoxin 0.125 mg p.o. in the morning. 33. Metoprolol tartrate 50 mg p.o. b.i.d. 34. Cephalexin 500 mg p.o. t.i.d. x33. New medications: 1. Bumex. 2. Santyl. 3. Digoxin. 4. Levothyroxine 12.5. 5. Metoprolol tartrate. 6. Cephalexin. Discontinued medications: 1. Lisinopril 20 mg p.o. daily. 2. Bumex 1 mg p.o. b.i.d. 3. Coreg 25 mg p.o. b.i.d. 4. Singulair 10 mg p.o. at bedtime. HOSPITAL COURSE: This is a brief summary of the patient's presentation. For more details, please see the history and physical by Dr. Jesu Car from . In brief, patient is a 76-year-old female with past medical history as above, who lives in an assisted living at [facility] and states she was walking to the bathroom at night, and that she felt weak, sat down, did not fall and did not hit her head. Staff at the facility, however, stated that she was found on the floor with symmetrical movements of her extremities and her eyes rolled back in her head. There was no bowel or bladder control loss. Patient had some recent falls. Patient was found to be hypotensive in the hospital. Patient recently had an increase in her Bumex due to increased swelling in her legs. Patient also has been very fatigued and falling asleep recently including at a doctor's appointment. Patient was admitted and found to be very unsteady on her feet with orthostatic hypotension on her first 2 days in the hospital. Patient's blood pressure medications of Coreg and Bumex were halved, and her lisinopril was stopped. Patient continued to be borderline hypotensive and became tachycardic between the 100s and 120s consistently with increased shortness of breath. Patient has previously had an outpatient Holter monitor which correlated subjective shortness of breath when her atrial fibrillation rate went above 100. Given patient's soft blood pressure and afib with RVR patient was started on Digoxin with loading dose of 0.75 mg and maintenance of 0.125 mg daily. Patient's digoxin level was therapeutic after 1 day and the patient had a pause of approximately 3.5 seconds on the first day which did not recur. Patient was also switched from Coreg to metoprolol to help with orthostatic hypotension and improve rhythm control. Patient was started on metoprolol tartrate 25 mg p.o. daily which was increased to 50 mg p.o. b.i.d. By the end of her hospitalization patient has consistently, by the last few days of her hospitalization, had heart rate between 80 and 100, and has had no dizziness while standing and no hypotension. Patient was also able to be weaned off her oxygen for all of the day on 06/24/17, but on the morning of 06/25/17 had to be put back on. Patient will continue with this on an as needed basis. Patient has chronic wounds in her lower extremities from previous falls, upon her admission they were deemed to be not infected and there was wound care and surgery consulted, and noted to be no need for sharp debridement and wound care recommendations that are included with this packet were instituted; however, patient had on 06/20/17 an increase in swelling and pain in her lower legs with low grade fevers. It was deemed at this time that patient had developed cellulitis in her leg which was swabbed and grew Proteus which was susceptible to cephalexin. Patient was then started on cephalexin IV 1 gram t.i.d. Patient wounds have showed no significant improvement since antibiotics have been started. Patient has been elevating her legs as much as possible when sitting to decrease swelling in her legs and aid in wound healing. On 06/17/17 patient had an electroencephalogram which showed no baseline epileptic activity, but general encephalopathy most likely due to her numerous sedating medications to treat her tremor and bipolar I disorder. No changes to her medications were recommended at this time. The patient also had an increased ammonium level at 57 when she came to the hospital. Patient was given 3 doses of lactulose which brought it down to 51, but there was no change in her mental status. It is not believed that the patient has valproate induced toxic encephalopathy due to hyperammonemia. Patient had an infiltrate read on her x-ray at admission as above; however, patient had procalcitonin level of less than 0.01 and C- reactive protein of 46.95 repeated on 06/18/17 which is consistent with admission. Patient was not deemed to need coverage for pneumonia pathogens. At the time patient was found to have a TSH of 8.93 on admission and her Synthroid was increased by 12.5 micrograms daily with recommended TSH followup in 4-6 weeks. Patient's valproic level was 83 on admission which is therapeutic for bipolar disorder. Patient had physical therapy and occupational therapy consult while in the hospital and was shown to have functional deficits which would benefit from continued mcc therapy. These deficits remained stable throughout the hospitalization and patient was considered and accepted at [facility] for subacute rehab to return her hopefully to an independent state so she can return to [facility]. Patient was found to be slightly anemic on admission between 10.8 and 11.5, generally improving, but with no obvious etiology and slight macrocytosis, increased RDW with normal iron study, folate and B12. Patient has no blood in emesis or stool. PHYSICAL EXAM ON DAY OF DISCHARGE: General: Patient is a 76-year-old female with a flat affect, who appears stated age and sitting comfortably in chair in no acute distress. Vital Signs: Temperature 98.1 heart rate 84, respiratory rate 20, oxygen saturation 96% on room air, blood pressure 154/68. HEENT: Head normocephalic, atraumatic. Eyes: Sclerae anicteric. No conjunctival injection. Mouth: Patient has poor dental hygiene. Pharynx nonerythematous. Mucous membranes moist. Nasal mucosa intact without clots. Neck: Supple, nontender. No lymphadenopathy. No carotid bruit auscultated. Cardiac: Irregularly irregular rhythm, rate between 80 and 100. No clicks, murmurs, gallops or rubs. Pulses 2+ in bilateral posterior tibialis, dorsalis pedis, and radial areas. 2+ pitting edema in the bilateral lower extremities up to her knees, stable from previous exams. Respiratory: Clear to auscultation bilaterally. There is decreased breath sounds in the right lower lobe consistent with previous exams and elevated hemidiaphragm on chest x-ray. Good air exchange bilaterally otherwise. Abdomen: Soft, nontender, nondistended. Bowel sounds present and normoactive in all 4 quadrants. No hepatosplenomegaly. No mass. Genitourinary: No suprapubic tenderness or CVA tenderness. Skin: There is an approximately 2 x 2 cm area of eschar with laceration extending up from it for approximately 6 cm that is moist from Santyl application and has area of erythema surrounding it which is stable from previous exams, with no discharge. There is also an area of erythema extending up from the wound and down towards the ankle which is also stable from previous exams. On the left leg there is a approximately 1.5 x 1.5 cm blister which has popped with a moderate amount of yellow discharge and drainage, no other signs of infection, stable from previous exams. Moist from Santyl applications. Neuro: Cranial nerves II through XII grossly intact. Patient is alert and oriented x2, is aware of the season, but not the date. Patient has a hunched gait with feet shuffling, but no other unsteadiness with the walker. Patient has a tremor, worse in her right hand than her left, which extends into her neck as well and is worse today than it has been previously. Tremor is approximately 6 Hz. Psychiatric: Patient is anxious about her going to the retirement today, but otherwise very pleasant and cooperative. LABORATORY DATA: On day of discharge white blood cell count 7.3, red blood cell count 11.1, MCV 96, MCH 32, RDW 16, platelet count 161. Sodium 138, potassium 4.1, chloride 103, carbon-dioxide 28, anion gap 7, BUN 18, creatinine 0.63, glucose 91, calcium 87. CR from 06/24/17 39.91, decreased from 46.95 on . Digoxin level on 06/22/17 was 1.1. DISCHARGE PLAN: Patient will be discharged to [facility] with antibiotics for her leg ulcers and changes in her medication as stated above which are doing well in controlling her rate and keeping her blood pressure in normotensive range. Patient should work with PT/OT to regain functional status and hopefully return to [facility]. Patient should followup with a repeat TSH in 2-4 weeks to assess efficacy of increase in levothyroxine dose. Patient should continue wound care as described in this packet. Patient should ambulate as much as tolerated and keep her legs elevated as much as possible while recumbent. Would recommend decreasing or changing patient's medications for bipolar disorder and tremor to less sedating medications to hopefully improve patient's memory and mental state. DIET: Heart healthy, no caffeine. TIME SPENT: Approximately 60 minutes was spent on this discharge, 30 minutes of which was spent [id number] with the patient obtaining history and physical and discussing treatment options. KYLIE LEGER [id number]/[facility] #: [id number] PAUL
== END 2017-06-25 11:18 | DRG 592 ==
LOC: ED 00:59 → MEDTELE 08:39 → OBSVTOIN 18:05
PROVIDERS: ADMIT Hospitalist; ATTEND Internal Medicine
PROC: 4A00X4Z Measurement of Central Nervous Electrical Activity, External Approach (ICD-10-PCS; principal; 2017-06-16)
DX: L97.929 Non-pressure chronic ulcer of unspecified part of left lower leg with unspecified severity (principal); G93.40 Encephalopathy, unspecified; I07.1 Rheumatic tricuspid insufficiency; I11.0 Hypertensive heart disease with heart failure; I48.2 Chronic atrial fibrillation; I50.32 Chronic diastolic (congestive) heart failure; L03.115 Cellulitis of right lower limb; D64.9 Anemia, unspecified; R55 Syncope and collapse; J98.11 Atelectasis; L97.919 Non-pressure chronic ulcer of unspecified part of right lower leg with unspecified severity; E78.5 Hyperlipidemia, unspecified; J45.909 Unspecified asthma, uncomplicated; F31.9 Bipolar disorder, unspecified; E03.9 Hypothyroidism, unspecified; I25.10 Atherosclerotic heart disease of native coronary artery without angina pectoris; Z96.651 Presence of right artificial knee joint; H26.9 Unspecified cataract; H35.30 Unspecified macular degeneration; H40.9 Unspecified glaucoma; R40.2412 Glasgow coma scale score 13-15, at arrival to emergency department; R42 Dizziness and giddiness; R41.82 Altered mental status, unspecified; R60.9 Edema, unspecified; R09.02 Hypoxemia; Z66 Do not resuscitate; R00.0 Tachycardia, unspecified; I73.9 Peripheral vascular disease, unspecified; K21.9 Gastro-esophageal reflux disease without esophagitis; W19.XXXA Unspecified fall, initial encounter; I95.1 Orthostatic hypotension; G47.33 Obstructive sleep apnea (adult) (pediatric); Z79.01 Long term (current) use of anticoagulants; Z79.82 Long term (current) use of aspirin; Z86.711 Personal history of pulmonary embolism; Z88.5 Allergy status to narcotic agent; Z87.891 Personal history of nicotine dependence; Z82.49 Family history of ischemic heart disease and other diseases of the circulatory system; Z98.51 Tubal ligation status; Y92.9 Unspecified place or not applicable
CPT/HCPCS: 36415; 71010; 80048; 80053; 80162; 80164; 81003; 82140; 82550; 82553; 82607; 82728; 82746; 83540; 83550; 83605; 83690; 83735; 83880; 84145; 84443; 84466; 84484; 85025; 85045; 85610; 85730; 86140; 87070; 87077; 87186; 87205; 87640; 87641; 90686; 93005; 94640; 94760; 95819; A9270-GY; G0378; G8978-GP-CK; G8979-GP-CJ; G8980-GP-CJ; J0690; J1160